=== PATIENT | female | born 1935 | race Caucasian/White ===

== ENCOUNTER 2020-02-13 11:55 | Emergency (ER) | payer OTHER, MEDICARE ==
--- OUTSIDE RECORDS SUMMARY | 2020-02-13 11:58 | XMS REPORT | Continuity of Care Document ---
:1935 Author Organization [facility] t Address [address] [place] [address] Care Team Providers Name Role Phone Unavailable Unavailable Unavailable Problems Condition Condition Condition Status Onset Resolution Last Treating Co mments Source Name Details Category Date Date Treatment Clinician Date Arthritis Arthritis Diagnosis Active [facility], [facility], [facility] Pain, Pain, Diagnosis Active [facility] joint, [facility], left knee, left [facility] Sprain of Sprain of Diagnosis Active [facility] other other [facility] - ligament ligament [facility] of left of left l knee, knee, Outpati initial initial ent encounter encounter Clin ics Allergies, Adverse Reactions, Alerts This patient has no known allergies or adverse reactions. Medications Ordered Filled Start Stop Current Ordering Indication Dosage Frequency Signature Comments Components Source Medication Medication Date Date Medication? Clinician (SIG) Name Name Cyclobenzap Cyclobenzap Yes [facility] not [facility] rine HCl rine HCl [facility] defined [facility] Pepcid Pepcid Yes [facility] not [facility] Lumigan Lumigan Yes [place] not [facility] Levothyroxi Levothyroxi Yes [facility] not [facility] ne Sodium ne Sodium [place] defined [facility] Azithromyci Azithromyci Yes [facility] not [facility] n n [place] defined [facility] MethylPREDN MethylPREDN Yes [facility] not [facility] ISolone ISolone [place] defined [facility] Omeprazole Omeprazole Yes [facility] not [facility] Losartan Losartan Yes [facility] not [facility] Potassium-H Potassium-H [place] defined [facility] - [facility] Procedures This patient has no known procedures. Encounters Start End Encounter Admission Attending Care Care Encounter Source Date/Time Date/Time Type Type Clinicians Facility Department ID 2019-06-14 2019-06-14 Outpatient Doug Aaron [id number] [facility] 09[facility] a Clinic of Clinic [facility] ent [facility] Results This patient has no known results.
[2020-02-13 12:51] LABS: Absolute Lymphocytes (CBC) 3.2 K/uL (0.7-4.9); Basophils % 0.5 % (0-1.3); Hematocrit 35.9 % (36.0-45.0); Lymphocytes % 31.9 % (15.3-44.8); MPV 8.5 fL (7.6-11.3); RBC Red Blood Cell Count 4.17 M/uL (3.86-4.86)
[2020-02-13 12:54] LABS: Protime INR 0.97
[2020-02-13 13:16] LABS: ALT/SGPT 23 U/L (12-78); AST/SGOT 15 U/L (15-37); Albumin 3.6 g/dL (3.4-5.0); Alkaline Phosphatase 78 U/L (45-117); BUN Blood Urea Nitrogen 13 mg/dL (7-18); Bicarbonate 27 mmol/L (21-32); Bilirubin Direct < 0.1 mg/dL (0-0.2); Bilirubin Total 0.2 mg/dL (0.2-1.0); Glucose Level 93 mg/dL (74-106); Lipase 55 U/L (73-393); Magnesium 2.4 mg/dL (1.8-2.4); NT PRO-BNP 114 pg/mL (<450); Potassium 4.1 mmol/L (3.5-5.1); Protein, Total 6.9 g/dL (6.4-8.2); Sodium Level 138 mmol/L (136-145)
--- NOTE | 2020-02-13 13:42 | RAD REPORT ---
EXAM DESCRIPTION: Vani Single View02/13/2020 1:20 pm CLINICAL HISTORY: Shortness of breath COMPARISON: 2017 FINDINGS: The lungs appear clear of acute infiltrate. The heart is normal size IMPRESSION: No acute abnormalities displayed
[2020-02-13 13:45] LABS: Urine Blood NEGATIVE (NEG); Urine Glucose NEGATIVE (NEG); Urine Protein NEGATIVE (NEG); Urine Specific Gravity 1.015 (1.005-1.030); Urine pH 8.5 (5.0-7.0)
[2020-02-13 13:46] LABS: Urine Bacteria <20 /HPF (<20); Urine RBC <5 /HPF (NONE SEEN)
[2020-02-13 13:48] LABS: Urine Culture Reflex Order NOT NEEDED
[2020-02-13 14:09] LABS: Thyroid Stimulating Hormone 1.01 uIU/mL (0.360-3.740)
--- NOTE | 2020-02-13 16:19 | RAD REPORT ---
EXAM DESCRIPTION: CT - Abdomen Pelvis W Contrast - 02/13/2020 3:51 pm CLINICAL HISTORY: Abdominal pain. COMPARISON: None. TECHNIQUE: Computed axial tomography of the abdomen and pelvis was obtained. 100 cc Isovue-300 is ad ministered intravenously. Oral contrast was given. All CT scans are performed using dose optimization technique as appropriate and may include automated exposure control or mA/KV adjustment according to patient size. FINDINGS: A 4 centimeter anorectal exophytic mass extends posterior and to the left. No enlarged lym ph nodes visualized. Mild fluid within the presacral space. Diverticulosis without diverticulitis. The liver, spleen, pancreas, adrenals and kidneys appear unremarkable. The appendix is normal caliber. 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
--- NOTE | 2020-02-13 16:25 | EDPHYS ---
Physician Documentation [facility] Name: Tiara Gooden Age: 84 yrs Sex: Female : 1935 Arrival Date: 02/13/2020 Time: 12:00 Bed 8 Private MD: ED Physician Mailk Corona HPI: 02/12 13:25 This 84 yrs old Female presents to ER via Wheelchair with complaints of jr8 General Weakness. 13:25 Patient stated that she has been extremely weak this past week. Denies n/v/d or fevers. jr8 Stated that she has not felt like this in a long time. Currently being worked up for GI problems and was schedule to have CT today but was so weak that she could not make it . Severity of symptoms: At their worst the symptoms were moderate. The patient has not experienced similar symptoms in the past. The patient has not recently seen a physician. Historical: - Allergies: 12:22 Codeine; ll1 - PMHx: 12:22 Hypertension; Hypothyroidism; macular degeneration; ll1 - PSHx: 12:22 Thyroidectomy; ll1 - Immunization history:: Flu vaccine is up to date. - Social history:: Smoking status: Patient denies any tobacco usage or history of. Patient/guardian denies using alcohol, street drugs. ROS: 13:25 Eyes: Negative for injury, pain, redness, and discharge, ENT: Negative for injury, jr8 pain, and discharge, Neck: Negative for injury, pain, and swelling, Cardiovascular: Negative for chest pain, palpitations, and edema, Respiratory: Negative for shortness of breath, cough, wheezing, and pleuritic chest pain, Back: Negative for injury and pain, MS/Extremity: Negative for injury and deformity, Skin: Negative for injury, rash, and discoloration, Neuro: Negative for headache, weakness, numbness, tingling, and seizure. 13:25 Constitutional: Positive for fatigue, malaise. 13:25 Abdomen/GI: Positive for abdominal pain, abdominal distension. Exam: 13:25 Eyes: Pupils equal round and reactive to light, extra-ocular motions intact. Lids and jr8 lashes normal. Conjunctiva and sclera are non-icteric and not injected. Cornea within normal limits. Periorbital areas with no swelling, redness, or edema. ENT: Nares patent. No nasal discharge, no septal abnormalities noted. Tympanic membranes are normal and external auditory canals are clear. Oropharynx with no redness, swelling, or masses, exudates, or evidence of obstruction, uvula midline. Mucous membranes moist. Neck: Trachea midline, no thyromegaly or masses palpated, and no cervical lymphadenopathy. Supple, full range of motion without nuchal rigidity, or vertebral point tenderness. No Meningismus. Cardiovascular: Regular rate and rhythm with a normal S1 and S2. No gallops, murmurs, or rubs. Normal PMI, no JVD. No pulse deficits. Respiratory: Lungs have equal breath sounds bilaterally, clear to auscultation and percussion. No rales, rhonchi or wheezes noted. No increased work of breathing, no retractions or nasal flaring. Abdomen/GI: Soft, non-tender, with normal bowel sounds. No distension or tympany. No guarding or rebound. No evidence of tenderness throughout. Back: No spinal tenderness. No costovertebral tenderness. Full range of motion. Skin: Warm, dry with normal turgor. Normal color with no rashes, no lesions, and no evidence of cellulitis. MS/ Extremity: Pulses equal, no cyanosis. Neurovascular intact. Full, normal range of motion. Neuro: Awake and alert, GCS 15, oriented to person, place, time, and situation. Cranial nerves II-XII grossly intact. Motor strength 5/5 in all extremities. Sensory grossly intact. Cerebellar exam normal Vital Signs: 12:19 BP 168 / 95; Pulse 80; Resp 18; Temp 98.2; Pulse Ox 100% ; Pain 0/10; ll1 13:30 BP 188 / 83; Pulse 72; Resp 15; Pulse Ox 99% on R/A; hb 14:30 BP 186 / 80; Pulse 70; Resp 17; Pulse Ox 99% on R/A; hb 15:30 BP 178 / 78; Pulse 68; Resp 16; Pulse Ox 99% on R/A; hb 16:55 BP 174 / 76; Pulse 71; Resp 17; Pulse Ox 99% on R/A; hb MDM: 12:34 Patient medically screened. jr8 16:20 Data reviewed: vital signs, nurses notes, lab test result(s), radiologic studies, CT jr8 scan. Data interpreted: Pulse oximetry: on room air is 99 %. Interpretation: normal. Counseling: I had a detailed discussion with the patient and/or guardian regarding: the historical points, exam findings, and any diagnostic results supporting the discharge/admit diagnosis, lab results, radiology results, the need for outpatient follow up, a cad technician, to return to the emergency department if symptoms worsen or persist or if there are any questions or concerns that arise at home. ED course: Patient already set up to see Dr. Ashford for f/u. Will continue that appointment for new anorectal mass that was found on CT . 02/12 12:35 Order name: Basic Metabolic Panel; Complete Time: 13:24 02/12 12:35 Order name: CBC with Diff; Complete Time: 12:55 02/12 12:35 Order name: LFT's; Complete Time: 13:24 02/12 12:35 Order name: Magnesium; Complete Time: 13:24 02/12 12:35 Order name: NT PRO-BNP; Complete Time: 13:24 02/12 12:35 Order name: PT-INR; Complete Time: 12:55 02/12 12:35 Order name: XRAY Chest (1 view); Complete Time: 14:00 02/12 12:35 Order name: EKG; Complete Time: 12:36 02/12 12:35 Order name: Lipase; Complete Time: 13:24 02/12 12:35 Order name: Urine Microscopic Only; Complete Time: 14:00 02/12 12:55 Order name: TSH; Complete Time: 14:02/12 12:55 Order name: T4 Free; Complete Time: 14:02/12 13:02 Order name: CT Abd/Pelvis - PO and IV Contrast; Complete Time: 16:20 02/12 13:41 Order name: Urine Dipstick--Ancillary (enter results); Complete Time: 14:00 02/12 12:35 Order name: Cardiac monitoring; Complete Time: 12:53 02/12 12:35 Order name: EKG - Nurse/Tech; Complete Time: 12:53 02/12 12:35 Order name: IV Saline Lock; Complete Time: 12:53 02/12 12:35 Order name: Labs collected and sent; Complete Time: 12:53 8 02/12 12:35 Order name: O2 Per Protocol; Complete Time: 12:53 02/12 12:35 Order name: O2 Sat Monitoring; Complete Time: 12:53 02/12 12:35 Order name: Urine Dipstick-Ancillary (obtain specimen); Complete Time: 13:17 jr8 Administered Medications: No medications were administered Disposition: 18:31 Co-signature as Attending Physician, Malik Corona MD. rn Disposition: 02/13/20 16:24 Discharged to Home. 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 - Condition is Stable. - Discharge Instructions: Colon Mass, Adult. - Medication Reconciliation Form, Thank You Letter, Antibiotic Education, Prescription Opioid Use form. - Follow up: Hesham Ashford MD; When: 1 - 2 days; Reason: Recheck today's complaints, Continuance of care, Re-evaluation by your physician. - Problem is new. - Symptoms are unchanged. Signatures: Dispatcher [employer] EDGA Malik Corona MD MD rn Smirch, Shelby RN RN Osman Crook, WINDY PA jr8 Dayron Bowman RN RN ll1 Corrections: (The following items were deleted from the chart) 17:04 16:24 02/13/2020 16:24 Discharged to Home. Impression: Other specified diseases of anus ss and rectum - Suspected Neoplasm . Condition is Stable. Forms are Medication Reconciliation Form, Thank You Letter, Antibiotic Education, Prescription Opioid Use. Follow up: Hesham Ashford; When: 1 - 2 days; Reason: Recheck today's complaints, Continuance of care, Re-evaluation by your physician. Problem is new. Symptoms are unchanged. jr8
--- NOTE | 2020-02-13 16:25 | ER ---
Nurse's Notes [facility] Name: Tiara Gooden Age: 84 yrs Sex: Female : 1935 Arrival Date: 02/13/2020 Time: 12:00 Bed 8 Private MD: Diagnosis: Other specified diseases of anus and rectum-Suspected Neoplasm Presentation: 02/12 12:19 Chief complaint: Patient states: Generalized weakness and near syncope feeling today. + ll1 nausea. States she was scheduled for a CT scan of abdomen at 2pm today, but just doesn't feel good enough to even drink her barium drink. No fever or cough. States she has been having abdominal upset for a couple months now. Coronavirus screen: Client denies travel out of the [place] in the last 14 days. At this time, the client does not indicate any symptoms associated with coronavirus-19. Ebola Screen: Patient denies travel to an Ebola-affected area in the 21 days before illness onset. No acute neurological deficit is noted. Initial Sepsis Screen: Does the patient meet any 2 criteria? No. Patient's initial sepsis screen is negative. Risk Assessment: Do you want to hurt yourself or someone else? Patient reports no desire to harm self or others. Onset of symptoms was February 13, 2020. 12:19 Method Of Arrival: Wheelchair ll1 12:19 Acuity: ANNA 3 ll1 12:30 Initial Sepsis Screen: Does the patient have a suspected source of infection? No. hb Patient's initial sepsis screen is negative. Stroke Activation: Symtpom onset >3 hours and < 6 hours Physician: Stroke Attending; Name: ; Notified At: ; Arrived At: Physician: Chief Stroke Resident; Name: ; Notified At: ; Arrived At: Physician: Stroke Resident; Name: ; Notified At: ; Arrived At: Physician: ED Attending; Name: ; Notified At: ; Arrived At: Physician: ED Resident; Name: ; Notified At: ; Arrived At: Historical: - Allergies: 12:22 Codeine; ll1 - PMHx: 12:22 Hypertension; Hypothyroidism; macular degeneration; ll1 - PSHx: 12:22 Thyroidectomy; ll1 - Immunization history:: Flu vaccine is up to date. - Social history:: Smoking status: Patient denies any tobacco usage or history of. Patient/guardian denies using alcohol, street drugs. Screenin:54 Abuse screen: Denies threats or abuse. Denies injuries from another. Nutritional hb screening: No deficits noted. Tuberculosis screening: No symptoms or risk factors identified. Fall Risk None identified. Assessment: 12:32 General: Appears in no apparent distress. Behavior is calm, cooperative. Pain: Denies hb pain. Neuro: Level of Consciousness is awake, alert, obeys commands, Oriented to person, place, time, situation. Cardiovascular: Capillary refill < 3 seconds Patient's skin is warm and dry. Respiratory: Respiratory effort is even, unlabored, Respiratory pattern is regular, symmetrical. GI: No signs and/or symptoms were reported involving the gastrointestinal system. : No signs and/or symptoms were reported regarding the genitourinary system. EENT: No signs and/or symptoms were reported regarding the EENT system. Derm: Skin is pink, warm \T\ dry. Musculoskeletal: Reports GENERALIZED WEAKNESS. 13:30 Reassessment: Patient appears in no apparent distress at this time. Patient and/or hb family updated on plan of care and expected duration. Pain level reassessed. Patient is alert, oriented x 3, equal unlabored respirations, skin warm/dry/pink. 14:30 Reassessment: Patient appears in no apparent distress at this time. Patient and/or hb family updated on plan of care and expected duration. Pain level reassessed. Patient is alert, oriented x 3, equal unlabored respirations, skin warm/dry/pink. 15:30 Reassessment: Patient appears in no apparent distress at this time. No changes from previously documented assessment. Patient and/or family updated on plan of care and expected duration. Pain level reassessed. Patient is alert, oriented x 3, equal unlabored respirations, skin warm/dry/pink. 16:22 Reassessment: Pt ambulated to bathroom with steady gait. hb Vital Signs: 12:19 BP 168 / 95; Pulse 80; Resp 18; Temp 98.2; Pulse Ox 100% ; Pain 0/10; ll1 13:30 BP 188 / 83; Pulse 72; Resp 15; Pulse Ox 99% on R/A; hb 14:30 BP 186 / 80; Pulse 70; Resp 17; Pulse Ox 99% on R/A; hb 15:30 BP 178 / 78; Pulse 68; Resp 16; Pulse Ox 99% on R/A; hb 16:55 BP 174 / 76; Pulse 71; Resp 17; Pulse Ox 99% on R/A; hb ED Course: 12:00 Patient arrived in ED. mr 12:21 Osman Reddy PA is PHCP. jr8 12:21 Malik Corona MD is Attending Physician. jr8 12:21 Triage completed. ll1 12:22 Arm band placed on Patient placed in an exam room, on a stretcher. ll1 12:32 Inserted saline lock: 20 gauge in right antecubital area, using aseptic technique. hb Blood collected. 12:35 Patient has correct armband on for positive identification. Bed in low position. Call hb light in reach. 12:36 Yessy Andre, RN is Primary Nurse. hb 13:21 XRAY Chest (1 view) In Process Unspecified. EDMS 15:51 CT Abd/Pelvis - PO and IV Contrast In Process Unspecified. EDMS 16:21 Hesham Ashford MD is Referral Physician. jr8 17:04 No provider procedures requiring assistance completed. IV discontinued, intact, ss bleeding controlled, No redness/swelling at site. Administered Medications: No medications were administered Outcome: 16:24 Discharge ordered by . jr8 17:04 Discharged to home ambulatory. ss 17:04 Condition: stable 17:04 Discharge instructions given to patient, Instructed on discharge instructions, follow up and referral plans. medication usage, Demonstrated understanding of instructions, follow-up care, medications. 17:04 Patient left the ED. ss Signatures: Dispatcher [employer] EDTN ObrienKaro mr Teresita Yang RN RN Osman Reddy PA PA jr8 Yessy Andre, RN AMY Dayron Bowman RN RN ll1
[2020-02-13 17:28] VITALS: TEMP 98.2
[2020-02-13 17:29] VITALS: O2SAT 99
[2020-02-13 17:33] VITALS: BP 174/76
== END 2020-02-13 17:04 | disposition home or self-care (01) ==
LOC: ER 11:55
DX: K62.89 Other specified diseases of anus and rectum (principal); I10 Essential (primary) hypertension; Z88.5 Allergy status to narcotic agent
CPT/HCPCS: 85025; 80048; 36415; 83735; 85610; 80076; 84443; 84439; 83690; 83880; 74177; 71045; 99284; Q9967; 81003; 81015

== ENCOUNTER 2020-02-14 06:00 | Emergency (ER) | payer OTHER, MEDICARE ==
--- OUTSIDE RECORDS SUMMARY | 2020-02-14 06:02 | XMS REPORT | Continuity of Care Document ---
:1935 Author Organization [facility] t Address [address] [place] [address] Care Team Providers Name Role Phone Unavailable [...] l Outpati ent Clinics Lumigan Lumigan Yes [facility] not [facility] defined [...] Potassium-H [place] defined [facility] ent [facility] Procedures This patient has no known procedures. Encounters Start End Encounter Admission Attending Care Care Encounter Source Date/Time Date/Time Type Type Clinicians Facility Department ID 2019-06-14 2019-06-14 Outpatient Doug Aaron [id number] [facility] 09[facility] t [facility] a Clinic of Clinic [facility] ent [facility] Results This patient has no known results.
[2020-02-14] MEDS ORDERED: LIDOCAINE 1% W/EPI 1:100,000 MDV 50 ML VIAL ONE (06:23)
--- NOTE | 2020-02-14 08:01 | EDPHYS ---
Physician Documentation [facility] Name: Tiara Gooden Age: 84 yrs Sex: Female : 1935 Arrival Date: 02/14/2020 Time: 06:01 Bed 6 Private MD: ED Physician Zeb Acosta HPI: 02/13 06:08 This 84 yrs old Female presents to ER via EMS with complaints of Fall Injury. kb 06:08 Details of fall: The patient fell from an upright position, while walking. Onset: The kb symptoms/episode began/occurred just prior to arrival. Associated injuries: The patient sustained injury to the head, laceration, 10 cm(s), of the forehead and top of head. Severity of symptoms: At their worst the symptoms were moderate, in the emergency department the symptoms are unchanged. The patient has not experienced similar symptoms in the past. The patient has not recently seen a physician. Pt reports she tripped and fell hitting her head on the doorframe causing laceration. Reports she landed on left knee but it feels fine. Full ROM to knee, no signs of trauma, including ecchymosis, erythema, swelling, hematoma. Pt denies any other injuries. Full ROM of all extremities. Denies LOC. . Historical: - Allergies: 06:09 Codeine; bb - Home Meds: 06:16 levothyroxine oral [Active]; losartan oral oral [Active]; Lumigan ophthalmic ophthalmic bb [Active]; vitamins [Active]; - PMHx: 06:09 Hypertension; Hypothyroidism; macular degeneration; bb - PSHx: 06:09 Thyroidectomy; bb - Immunization history: Last tetanus immunization: unknown. - Social history:: Smoking status: Patient denies any tobacco usage or history of. Patient uses alcohol, but reports only rare drinking. Patient/guardian denies using street drugs. ROS: 06:07 Constitutional: Negative for fever, chills, and weight loss, Cardiovascular: Negative kb for chest pain, palpitations, and edema, Respiratory: Negative for shortness of breath, cough, wheezing, and pleuritic chest pain, Abdomen/GI: Negative for abdominal pain, nausea, vomiting, diarrhea, and constipation, Back: Negative for injury and pain, MS/Extremity: Negative for injury and deformity, Neuro: Negative for headache, weakness, numbness, tingling, and seizure. 06:07 Skin: Positive for laceration(s), of the top of head and forehead. Exam: 06:07 Constitutional: This is a well developed, well nourished patient who is awake, alert, kb and in no acute distress. Chest/axilla: Normal chest wall appearance and motion. Nontender with no deformity. No lesions are appreciated. Cardiovascular: Regular rate and rhythm with a normal S1 and S2. No gallops, murmurs, or rubs. Normal PMI, no JVD. No pulse deficits. Respiratory: Lungs have equal breath sounds bilaterally, clear to auscultation and percussion. No rales, rhonchi or wheezes noted. No increased work of breathing, no retractions or nasal flaring. Abdomen/GI: Soft, non-tender, with normal bowel sounds. No distension or tympany. No guarding or rebound. No evidence of tenderness throughout. MS/ Extremity: Pulses equal, no cyanosis. Neurovascular intact. Full, normal range of motion. Neuro: Awake and alert, GCS 15, oriented to person, place, time, and situation. Cranial nerves II-XII grossly intact. Motor strength 5/5 in all extremities. Sensory grossly intact. Cerebellar exam normal. Normal gait. 06:07 Head/face: Noted is no obvious of injury or deformity except a laceration(s), that is superficial, 10 cm(s), of the forehead and top of head. Vital Signs: 06:03 BP 169 / 83; Pulse 105; Resp 18 S; Temp 98.3(O); Pulse Ox 100% on R/A; Weight 73.48 kg bb (R); Height 5 ft. 5 in. (165.10 cm) (R); 07:00 BP 155 / 77; Pulse 99; Resp 18; Pulse Ox 99% ; sv 08:00 BP 144 / 78; Pulse 92; Resp 16; Pulse Ox 99% ; sv 06:03 Body Mass Index 26.96 (73.48 kg, 165.10 cm) bb Dallas Coma Score: 06:03 Eye Response: spontaneous(4). Verbal Response: oriented(5). Motor Response: obeys bb commands(6). Total: 15. Trauma Score (Adult): 06:03 Eye Response: spontaneous(1); Verbal Response: oriented(1); Motor Response: obeys bb commands(2); Systolic BP: > 89 mm Hg(4); Respiratory Rate: 10 to 29 per min(4); Tiffin Score: 15; Trauma Score: 12 07:00 Eye Response: spontaneous(1); Verbal Response: oriented(1); Motor Response: obeys sv commands(2); Systolic BP: > 89 mm Hg(4); Respiratory Rate: 10 to 29 per min(4); Tiffin Score: 15; Trauma Score: 12 08:00 Eye Response: spontaneous(1); Verbal Response: oriented(1); Motor Response: obeys sv commands(2); Systolic BP: > 89 mm Hg(4); Respiratory Rate: 10 to 29 per min(4); Dallas Score: 15; Trauma Score: 12 Laceration: 08:01 Wound Repair of 12cm ( 4.7in ) subcutaneous laceration to forehead and top of head. kb Irregularly shaped.. Hemostasis noted.. Distal neuro/vascular/tendon intact. Anesthesia: Local anesthetic administered with 6 mls of 1% lidocaine w/ Epi. Wound prep: Extensive cleansing with betadine with hibiclenz by nurse by me, Wound irrigation with saline by nurse by me. Skin closed with 13 5-0 fast absorbing gut using simple sutures and sterile technique. Skin closed with 10 1-0 [place] using staple gun. Patient tolerated well. MDM: 06:04 Patient medically screened. kb 06:07 Data reviewed: vital signs, nurses notes. Data interpreted: Pulse oximetry: on room air kb is 100 %. Interpretation: normal. 08:00 Counseling: I had a detailed discussion with the patient and/or guardian regarding: the kb historical points, exam findings, and any diagnostic results supporting the discharge/admit diagnosis, radiology results, the need for outpatient follow up, a family practitioner, to return to the emergency department if symptoms worsen or persist or if there are any questions or concerns that arise at home. 02/13 06:07 Order name: CT Head C Spine kb 02/13 06:07 Order name: Dressing - Wound; Complete Time: 07:04 kb 02/13 06:07 Order name: Gloves, Sterile; Complete Time: 07:04 kb 02/13 06:07 Order name: Setup Suture Tray; Complete Time: 06:19 kb Administered Medications: 06:50 Drug: Lidocaine-Epinephrine -1%: (1:100,000) 1 vials {Note: given by anita WINTER.} rr5 Volume: 20 ml; Route: Infiltration; 07:27 Follow up: Response: No adverse reaction; Pain is decreased em Disposition: 12:42 Co-signature as Attending Physician, Zeb Acosta MD I agree with the assessment and tw4 plan of care. Disposition: 02/14/20 08:01 Discharged to Home. Impression: Fall on same level from slipping, tripping and stumbling, Laceration without foreign body of scalp. - Condition is Stable. - Discharge Instructions: Head Injury, Adult, [id number], Laceration Care, Pediatric, [id number]. - Medication Reconciliation Form, Thank You Letter, Antibiotic Education, Prescription Opioid Use form. - Follow up: Emergency Department; When: As needed; Reason: Worsening of condition. Follow up: Private Physician; When: 2 - 3 days; Reason: Recheck today's complaints, Continuance of care, Re-evaluation by your physician. - Notes: Sutures will dissolve. Have rudolph removed in 7-10 days Keep clean and dry Signatures: Dispatcher [employer] EDMS Anita Birmingham, LIDAR TECHNICIAN-C LIDAR TECHNICIAN-CkDiane Lynn RN RN Nicolette Hawkins RN RN Zeb Suazo MD MD tw4 Karri Romero RN RN rr5 Nahun Inman RN em Corrections: (The following items were deleted from the chart) 08:25 08:01 02/14/2020 08:01 Discharged to Home. Impression: Fall on same level from sv slipping, tripping and stumbling; Laceration without foreign body of scalp. Condition is Stable. Forms are Medication Reconciliation Form, Thank You Letter, Antibiotic Education, Prescription Opioid Use. Follow up: Emergency Department; When: As needed; Reason: Worsening of condition. Follow up: Private Physician; When: 2 - 3 days; Reason: Recheck today's complaints, Continuance of care, Re-evaluation by your physician. kb
--- NOTE | 2020-02-14 08:01 | ER ---
Nurse's Notes [facility] Name: Tiara Gooden Age: 84 yrs Sex: Female : 1935 Arrival Date: 02/14/2020 Time: 06:01 Bed 6 Private MD: Diagnosis: Fall on same level from slipping, tripping and stumbling;Laceration without foreign body of scalp Presentation: 02/13 06:03 Chief complaint: EMS states: they were toned out for report of pt with fall injury pt bb slipped and fell forward hitting her head denies LOC and does not take blood thinners. Care prior to arrival: IV initiated. 20 GA, in the left antecubital area. Mechanism of Injury: Fall from standing position. Trauma event details: Injury occurred in the [facility], Injury occurred: at home. Injury occurred: February 14, 2020. 06:03 Acuity: ANNA 3 bb 06:03 Method Of Arrival: EMS: [facility] bb 06:08 Coronavirus screen: At this time, the client does not indicate any symptoms associated bb with coronavirus-19. Ebola Screen: No symptoms or risks identified at this time. Initial Sepsis Screen: Does the patient meet any 2 criteria? No. Patient's initial sepsis screen is negative. Does the patient have a suspected source of infection? No. Patient's initial sepsis screen is negative. Risk Assessment: Do you want to hurt yourself or someone else? Patient reports no desire to harm self or others. Onset of symptoms was February 14, 2020. Trauma Activation: Alert Physician: ED Physician; Name: Karla; Notified At: 05:57; Arrived At: 05:57 Physician: General Surgeon; Name: ; Notified At: 05:57; Arrived At: Physician: Radiology; Name: Ulises Early; Notified At: 05:57; Arrived At: 05:58 Physician: Respiratory; Name: ; Notified At: 05:57; Arrived At: Physician: Lab; Name: ; Notified At: 05:57; Arrived At: Historical: - Allergies: 06:09 Codeine; bb - Home Meds: 06:16 levothyroxine oral [Active]; losartan oral oral [Active]; Lumigan ophthalmic ophthalmic bb [Active]; vitamins [Active]; - PMHx: 06:09 Hypertension; Hypothyroidism; macular degeneration; bb - PSHx: 06:09 Thyroidectomy; bb - Immunization history: Last tetanus immunization: unknown. - Social history:: Smoking status: Patient denies any tobacco usage or history of. Patient uses alcohol, but reports only rare drinking. Patient/guardian denies using street drugs. Screenin:03 Abuse screen: Denies threats or abuse. Tuberculosis screening: No symptoms or risk bb factors identified. 06:09 Nutritional screening: No deficits noted. Fall Risk Fall in past 12 months (25 points). bb Secondary diagnosis (15 points) impaired mobility, IV access (20 points). Ambulatory Aid- None/Bed Rest/Nurse Assist (0 pts). Mental Status- Overestimates/Forgets Limitations (15 pts.). Total Pelletier Fall Scale indicates High Risk Score (45 or more points). Fall prevention measures have been instituted. Side Rails Up X 2 As available patient and family educated on Fall Prevention Program and Strategies. Primary Survey: 06:03 NO uncontrolled hemorrhage observed. A: The patient is alert. Airway: patent. bb Breathing/Chest: Respiratory pattern: regular, Respiratory effort: spontaneous, unlabored. Circulation: Heart tones present. Disability Alert. 06:16 Exposure/Environment: All clothing and personal items were removed. There is no rr5 evidence of uncontrolled external bleeding. Obvious injury(ies) are noted at this time: lacerated wound forehead area A warming method has been applied: A warm blanket has been provided to the patient. 07:05 Reassessment Airway Airway Patent Oral cavity Clear +Gag reflex Trachea Midline rr5 Breathing/Chest Respiratory pattern Regular Respiratory effort Spontaneous Unlabored Circulation Heart tones Present Pulses Palpable Disability Alert. 07:15 Reassessment Airway Airway Patent Oxygen No O2 Oral cavity Clear Trachea Midline sv Breathing/Chest Respiratory pattern Regular Respiratory effort Spontaneous Unlabored Chest inspection Symmetrical Circulation Heart tones Present Pulses Palpable Color [place] Temperature Warm Dry Disability Alert. Secondary Survey: 06:03 HEENT: Head Other laceration to scalp 10 cm. bb Assessment: 06:11 General: Appears uncomfortable, Behavior is calm, cooperative. Pain: Complains of pain bb in forehead and top of head. Neuro: Level of Consciousness is awake, alert, obeys commands, Oriented to person, place, time, situation. Cardiovascular: Capillary refill < 3 seconds Patient's skin is warm and dry. Respiratory: Airway is patent Respiratory effort is even, unlabored, Respiratory pattern is regular. GI: Reports nausea. Derm: Wound noted forehead and top of head Wound is laceration 10 cm. Musculoskeletal: Circulation, motion, and sensation intact. Injury Description: Laceration sustained to forehead and top of head is 7.6 to 20 cm long, was sustained 30-60 minutes ago. 06:16 Reassessment: pt to CT scan via stretcher with geotechnical intern. bb 06:26 Reassessment: Patient is alert, oriented x 3, equal unlabored respirations, skin rr5 warm/dry/pink. back from CT scan. 07:20 Reassessment: Anita WINTER at the bedside suturing the pt. sv 08:25 Reassessment: Patient appears in no apparent distress at this time. Patient and/or sv family updated on plan of care and expected duration. Pain level reassessed. Patient is alert, oriented x 3, equal unlabored respirations, skin warm/dry/pink. Patient states feeling better. Patient states symptoms have improved. Vital Signs: 06:03 BP 169 / 83; Pulse 105; Resp 18 S; Temp 98.3(O); Pulse Ox 100% on R/A; Weight 73.48 kg bb (R); Height 5 ft. 5 in. (165.10 cm) (R); 07:00 BP 155 / 77; Pulse 99; Resp 18; Pulse Ox 99% ; sv 08:00 BP 144 / 78; Pulse 92; Resp 16; Pulse Ox 99% ; sv 06:03 Body Mass Index 26.96 (73.48 kg, 165.10 cm) bb Dallas Coma Score: 06:03 Eye Response: spontaneous(4). Verbal Response: oriented(5). Motor Response: obeys bb commands(6). Total: 15. Trauma Score (Adult): 06:03 Eye Response: spontaneous(1); Verbal Response: oriented(1); Motor Response: obeys bb commands(2); Systolic BP: > 89 mm Hg(4); Respiratory Rate: 10 to 29 per min(4); [place] Score: 15; Trauma Score: 12 07:00 Eye Response: spontaneous(1); Verbal Response: oriented(1); Motor Response: obeys sv commands(2); Systolic BP: > 89 mm Hg(4); Respiratory Rate: 10 to 29 per min(4); Dallas Score: 15; Trauma Score: 12 08:00 Eye Response: spontaneous(1); Verbal Response: oriented(1); Motor Response: obeys sv commands(2); Systolic BP: > 89 mm Hg(4); Respiratory Rate: 10 to 29 per min(4); Dallas Score: 15; Trauma Score: 12 ED Course: 06:01 Patient arrived in ED. cl3 06:03 Patient has correct armband on for positive identification. Call light in reach. Side bb rails up X2. 06:03 Patient maintains SpO2 saturation greater than 95% on room air. bb 06:04 Anita Birmingham FNP-C [facility] kb 06:04 Zeb Acosta MD is Attending Physician. kb 06:05 Triage completed. bb 06:09 Arm band placed on Patient placed in an exam room, on a stretcher, on pulse oximetry. bb 06:09 Maintain EMS IV. Dressing intact. Site clean \T\ dry. Gauge \T\ site: 20 g L AC. bb 06:10 Karri Romero RN is Primary Nurse. rr5 06:10 Thermoregulation: warm blanket given to patient. bb 06:31 CT Head C Spine In Process Unspecified. EDMS 06:55 Wound care: to laceration located on top of head and forehead was cleaned with rr5 Hibiclens, soaked in Betadine solution, irrigated with normal saline, Patient tolerated well. 07:20 Assist provider with laceration repair on forehead and top of head that was between 7.6 sv to 12.5 cm using sutures and rudolph. Set up tray. Performed by Anita GUNN. 07:33 Primary Nurse role handed off by Karri Romero RN sv 07:33 Diane Baptiste RN is Primary Nurse. sv 08:15 IV discontinued, intact, bleeding controlled, No redness/swelling at site. Pressure sv dressing applied. Dressings: [place] X 1; forehead and top of head 4X4s X 1; forehead and top of head. Administered Medications: 06:50 Drug: Lidocaine-Epinephrine -1%: (1:100,000) 1 vials {Note: given by anita WINTER.} rr5 Volume: 20 ml; Route: Infiltration; 07:27 Follow up: Response: No adverse reaction; Pain is decreased em Intake: 06:03 PO: 0ml; Total: 0ml. bb 07:00 PO: 0ml; Total: 0ml. sv 08:00 PO: 0ml; Total: 0ml. sv 08:00 to the bathroom via wheelchair sv Output: 07:00 Urine: 0ml; Total: 0ml. sv 08:00 Other: 1; Total: 0ml. sv 08:00 to the bathroom via wheelchair sv Outcome: 08:01 Discharge ordered by . pao 08:25 Patient left the ED. sv 08:25 Discharged to home via wheelchair, with family. sv 08:25 Condition: stable 08:25 Condition: improved 08:25 Discharge instructions given to patient, family, Instructed on discharge instructions, follow up and referral plans. wound care, head injury precaution Demonstrated understanding of instructions, follow-up care, wound care. 08:25 Patient's length of stay in the Emergency Department was greater than 2 hours. needing sv laceration repairPatient's length of stay extended due to Signatures: Dispatcher [employer] Anita Sotelo, Diane Huitron, RN RN Nahun Wright, Nicolette Pulliam RN, RN RN Karri Zapata, RN RN rr5 Sandrine Bowman cl3 Corrections: (The following items were deleted from the chart) 16:08 07:20 Assist provider with laceration repair on forehead and top of head that was sv between 7.6 to 12.5 cm using sutures. Set up tray. Performed by Anita tapia
[2020-02-14 08:32] VITALS: BP 169/83; TEMP 98.3; O2SAT 100
--- NOTE | 2020-02-14 12:20 | RAD REPORT ---
EXAM DESCRIPTION: Head C Spine Mpr Wo Con CLINICAL HISTORY: PAIN COMPARISON: None. TECHNIQUE: CT Head and Cervical spine WO contrast on 02/14/2020 6:07 AM CDT This exam was performed according to our departmental dose-optimization program, which includes autom ated exposure control, adjustment of the mA and/or kV according to patient size and/or use of iterati ve reconstruction technique. FINDINGS: Brain: There is a large midline scalp laceration. Osorio-white differentiation is preserved. There is no hydrocephalus. There is mild diffuse cerebral atrophy. There is a small left frontal sca lp contusion. The calvarium is intact. Orbits and globes are unremarkable. The paranasal sinuses are clear. Mastoid air cells are clear. Cervical Spine: There is no acute fracture. There is grade 1 anterolisthesis of C2 on C3 and C3 on C4 and C4 on C5. There is mild diffuse facet arthritis. There is moderate narrowing of the C5-6 and C6-7 discs. There is moderate narrowing at T1-2. Vertebra l body heights are preserved. Soft tissues are unremarkable. IMPRESSION: Left frontal and midline frontal scalp injury with no fracture or intracranial hemorrhag e. Multilevel degenerative changes of the cervical spine without fracture. Electronically signed by: Venu Reynaga MD 02/14/2020 6:39 AM CDT Due to temporary technical issues with the PACS/Fluency reporting system, reports are being signed by the in house radiologist without review as a courtesy to ensure prompt reporting. The interpreting r adiologist is fully responsible for the content of the report.
== END 2020-02-14 08:25 | disposition home or self-care (01) ==
LOC: ER 06:00
PROC: 0JQ00ZZ Repair Scalp Subcutaneous Tissue and Fascia, Open Approach (ICD-10-PCS; principal; 2020-02-14)
DX: S01.01XA Laceration without foreign body of scalp, initial encounter (principal); W01.198A Fall on same level from slipping, tripping and stumbling with subsequent striking against other object, initial encounter; Y93.01 Activity, walking, marching and hiking; Y92.9 Unspecified place or not applicable; I10 Essential (primary) hypertension; E03.9 Hypothyroidism, unspecified; Z88.5 Allergy status to narcotic agent
CPT/HCPCS: 70450; 72125; 99285; G0390

== ENCOUNTER 2020-02-25 10:43 | Emergency (ER) | payer OTHER, MEDICARE ==
--- OUTSIDE RECORDS SUMMARY | 2020-02-25 10:51 | XMS REPORT | Continuity of Care Document ---
:1935 Author Organization [facility] t Address [address] [place] [address] Care Team Providers Name Role Phone Unavailable [...] Potassium-H Edmonds defined [facility] ent [facility] Procedures This patient has no known procedures. Encounters Start End Encounter Admission Attending Care Care Encounter Source Date/Time Date/Time Type Type Clinicians Facility Department ID 2019-06-14 2019-06-14 Outpatient Doug Aaron [id number] [facility] 09:00:00 09:00:00 t [facility] Joint [facility] a [facility] of [facility] ent [facility] Results This patient has no known results.
--- NOTE | 2020-02-25 10:56 | ER ---
Nurse's Notes [facility] Name: Tiara Gooden Age: 84 yrs Sex: Female : 1935 Arrival Date: 02/25/2020 Time: 10:45 Bed 14 Private MD: Ariel Garzon V Diagnosis: Encounter for removal of sutures-rudolph Presentation: 02/24 10:52 Chief complaint: Patient states: staple removal from scalp. Coronavirus screen: Client jl7 denies travel out of the [place] in the last 14 days. At this time, the client does not indicate any symptoms associated with coronavirus-19. Ebola Screen: No symptoms or risks identified at this time. Initial Sepsis Screen: Does the patient meet any 2 criteria? No. Patient's initial sepsis screen is negative. Does the patient have a suspected source of infection? No. Patient's initial sepsis screen is negative. Risk Assessment: Do you want to hurt yourself or someone else? Patient reports no desire to harm self or others. Onset of symptoms. Care prior to arrival: None. 10:52 Method Of Arrival: Ambulatory jl7 10:52 Acuity: ANNA 4 jl7 Triage Assessment: 10:54 General: Appears in no apparent distress. comfortable, Behavior is calm, cooperative, jl7 appropriate for age. Pain: Denies pain. Neuro: Level of Consciousness is awake, alert, obeys commands, Oriented to person, place, time, situation. Cardiovascular: Patient's skin is warm and dry. Respiratory: Airway is patent Respiratory effort is even, unlabored, Respiratory pattern is regular, symmetrical. Derm: Skin is pink, warm \T\ dry. Historical: - Allergies: 10:54 Codeine; jl7 - PMHx: 10:54 Hypertension; Hypothyroidism; macular degeneration; jl7 - PSHx: 10:54 Thyroidectomy; jl7 - Immunization history:: Adult Immunizations up to date. - Social history:: Smoking status: Patient denies any tobacco usage or history of. Screenin:57 Abuse screen: Denies threats or abuse. Denies injuries from another. Nutritional jl7 screening: No deficits noted. Tuberculosis screening: No symptoms or risk factors identified. Fall Risk None identified. Assessment: 10:57 General: See triage assessment. jl7 Vital Signs: 10:55 BP 137 / 79; Pulse 92; Resp 19; Temp 97.9; Pulse Ox 99% ; Pain 0/10; jl7 ED Course: 10:45 Patient arrived in ED. ag5 10:45 Ariel Garzon MD is Private Physician. ag5 10:48 Anita Birmingham FNP-C [facility]. kb 10:48 Miguel A Barron MD is Attending Physician. kb 10:53 Triage completed. jl7 10:54 Arm band placed on right wrist. jl7 10:57 Patient has correct armband on for positive identification. jl7 10:57 Staple removal. Patient did not have IV access during this emergency room visit. jl7 11:00 Lisa Nelson, RN is Primary Nurse. jl7 Administered Medications: No medications were administered Outcome: 10:56 Discharge ordered by MD. kb 11:00 Discharged to home ambulatory. jl7 11:00 Condition: stable 11:00 Discharge instructions given to patient, Instructed on discharge instructions, follow up and referral plans. Demonstrated understanding of instructions, follow-up care. 11:00 Patient left the ED. jl7 Signatures: Anita Birmingham FNP-C MOLDING UTILITY WORKER-Ckb Lisa Nelson, RN RN jl7 Mercedes Cortes ag5 Corrections: (The following items were deleted from the chart) 10:57 10:52 Acuity: ANNA 5 jl7 jl7
--- NOTE | 2020-02-25 10:56 | EDPHYS ---
Physician Documentation [facility] Name: Tiara Gooden Age: 84 yrs Sex: Female : 1935 Arrival Date: 02/25/2020 Time: 10:45 Bed 14 Private MD: Ariel Garzon V ED Physician Miguel A Barron HPI: 02/24 11:00 This 84 yrs old Female presents to ER via Ambulatory with complaints of kb Staple Removal. 11:00 The patient has rudolph on the scalp. Previous treatment: The patient was initially kb treated 11 day(s) ago, the care was rendered at [facility]. Sutures/rudolph progress: The patient has no c/o's. The wound is well-healing with no redness, swelling, discharge, or dehiscence reported. The patient has not experienced similar symptoms in the past. The patient has not recently seen a physician. Historical: - Allergies: 10:54 Codeine; jl7 - PMHx: 10:54 Hypertension; Hypothyroidism; macular degeneration; jl7 - PSHx: 10:54 Thyroidectomy; jl7 - Immunization history:: Adult Immunizations up to date. - Social history:: Smoking status: Patient denies any tobacco usage or history of. ROS: 10:59 Constitutional: Negative for fever, chills, and weight loss, Cardiovascular: Negative kb for chest pain, palpitations, and edema, Respiratory: Negative for shortness of breath, cough, wheezing, and pleuritic chest pain, Abdomen/GI: Negative for abdominal pain, nausea, vomiting, diarrhea, and constipation, MS/Extremity: Negative for injury and deformity, Neuro: Negative for headache, weakness, numbness, tingling, and seizure. 10:59 Skin: Positive for rudolph in place . Exam: 10:59 Constitutional: This is a well developed, well nourished patient who is awake, alert, kb and in no acute distress. Head/Face: Normocephalic, atraumatic. Chest/axilla: Normal chest wall appearance and motion. Nontender with no deformity. No lesions are appreciated. Cardiovascular: Regular rate and rhythm with a normal S1 and S2. No gallops, murmurs, or rubs. Normal PMI, no JVD. No pulse deficits. Respiratory: Lungs have equal breath sounds bilaterally, clear to auscultation and percussion. No rales, rhonchi or wheezes noted. No increased work of breathing, no retractions or nasal flaring. Abdomen/GI: Soft, non-tender, with normal bowel sounds. No distension or tympany. No guarding or rebound. No evidence of tenderness throughout. MS/ Extremity: Pulses equal, no cyanosis. Neurovascular intact. Full, normal range of motion. Neuro: Awake and alert, GCS 15, oriented to person, place, time, and situation. Cranial nerves II-XII grossly intact. Motor strength 5/5 in all extremities. Sensory grossly intact. Cerebellar exam normal. Normal gait. 10:59 Skin: Wound recheck: Staple laceration closure: the wound is healing well, the edges are well approximated, no evidence of dehiscence, no drainage, no erythema, no swelling. Vital Signs: 10:55 BP 137 / 79; Pulse 92; Resp 19; Temp 97.9; Pulse Ox 99% ; Pain 0/10; jl7 Procedures: 10:59 Suture/Staple removal: Removed 10 rudolph, from scalp, site appears well healed, kb Patient tolerated well. MDM: 10:51 Patient medically screened. kb 10:58 Data reviewed: vital signs, nurses notes. Data interpreted: Pulse oximetry: on room air kb is 99 %. Interpretation: normal. Counseling: I had a detailed discussion with the patient and/or guardian regarding: the historical points, exam findings, and any diagnostic results supporting the discharge/admit diagnosis, the need for outpatient follow up, a family practitioner, to return to the emergency department if symptoms worsen or persist or if there are any questions or concerns that arise at home. Administered Medications: No medications were administered Disposition: 02/25/20 10:56 Discharged to Home. Impression: Encounter for removal of sutures - rudolph. - Condition is Stable. - Discharge Instructions: Suture Removal, Care After. - Medication Reconciliation Form, Thank You Letter, Antibiotic Education, Prescription Opioid Use form. - Follow up: Emergency Department; When: As needed; Reason: Worsening of condition. Follow up: Private Physician; When: 2 - 3 days; Reason: Recheck today's complaints, Continuance of care, Re-evaluation by your physician. Addendum: 02/26/2020 13:37 Co-signature as Attending Physician, Miguel A Barron MD I agree with the assessment and c pisano plan of care. Signatures: Anita Birmingham, KNITTER HAND-C KNITTER HAND-Ckb Miguel A Barron MD MD cha Leal, Jahala, RN RN jl7 Corrections: (The following items were deleted from the chart) 02/24 11:00 10:56 02/25/2020 10:56 Discharged to Home. Impression: Encounter for removal of sutures jl7 - rudolph. Condition is Stable. Forms are Medication Reconciliation Form, Thank You Letter, Antibiotic Education, Prescription Opioid Use. Follow up: Emergency Department; When: As needed; Reason: Worsening of condition. Follow up: Private Physician; When: 2 - 3 days; Reason: Recheck today's complaints, Continuance of care, Re-evaluation by your physician. kb
[2020-02-25 11:16] VITALS: BP 137/79; TEMP 97.9; O2SAT 99
== END 2020-02-25 11:00 | disposition home or self-care (01) ==
LOC: ER 10:43
DX: Z48.02 Encounter for removal of sutures (principal)
CPT/HCPCS: 99281

== ENCOUNTER 2020-02-27 19:07 | Emergency (ER) | payer OTHER, MEDICARE ==
--- OUTSIDE RECORDS SUMMARY | 2020-02-27 19:09 | XMS REPORT | Continuity of Care Document ---
:1935 Author Organization [facility] t Address [address] [place] [address] Care Team Providers Name Role Phone Unavailable [...] Potassium-H Edmonds defined [facility] Procedures This patient has no known procedures. Encounters Start End Encounter Admission Attending Care Care Encounter Source Date/Time Date/Time Type Type Clinicians Facility Department ID 2019-06-14 2019-06-14 Outpatient Doug Aaron [id number] [facility] 09:[facility] 09:00:00 [facility] a Clinic of Clinic [facility] Results This patient has no known results.
[2020-02-27] MEDS ORDERED: NA CHLORIDE 0.9% 500 ML ONE ×2 (20:11→22:33)
[2020-02-27 20:43] LABS: Absolute Lymphocytes (CBC) 1.3 K/uL (0.7-4.9); Basophils % 0.4 % (0-1.3); Hematocrit 34.7 % (36.0-45.0); Lymphocytes % 10.3 % (15.3-44.8); MPV 8.4 fL (7.6-11.3); RBC Red Blood Cell Count 4.06 M/uL (3.86-4.86)
[2020-02-27 20:58] LABS: Albumin 3.8 g/dL (3.4-5.0); Bilirubin Direct 0.1 mg/dL (0-0.2); Bilirubin Total 0.2 mg/dL (0.2-1.0); Potassium 4.3 mmol/L (3.5-5.1); Protein, Total 7.3 g/dL (6.4-8.2)
[2020-02-27 22:59] LABS: Urine Blood NEGATIVE (NEG); Urine Glucose NEGATIVE (NEG); Urine Protein NEGATIVE (NEG)
--- NOTE | 2020-02-27 23:46 | ER ---
Nurse's Notes [facility] Name: Tiara Gooden Age: 84 yrs Sex: Female : 1935 Arrival Date: 02/27/2020 Time: 19:08 Bed 17 Private MD: Diagnosis: Dehydration;Adverse effect of bowel prep for colonoscopy Presentation: 02/26 19:12 Chief complaint: EMS states: She was drinking her colon prep for a colonoscopy she is ph scheduled to have tomorrow at 8am. After drinking the colon prep she began reporting nausea, vomiting, diarrhea and weakness. her BGL was 148 all other vital signs stable. Coronavirus screen: Client denies travel out of the [place] in the last 14 days. At this time, the client does not indicate any symptoms associated with coronavirus-19. Ebola Screen: No symptoms or risks identified at this time. Initial Sepsis Screen: Does the patient meet any 2 criteria? HR > 90 bpm. Yes Does the patient have a suspected source of infection? No. Patient's initial sepsis screen is negative. Risk Assessment: Do you want to hurt yourself or someone else? Patient reports no desire to harm self or others. Onset of symptoms was February 27, 2020. Transition of care: patient was not received from another setting of care. 19:12 Method Of Arrival: EMS: [facility] 19:12 Acuity: ANNA 3 ph Historical: - Allergies: 19:17 Codeine; ph - Home Meds: 19:17 levothyroxine oral [Active]; losartan Oral [Active]; ph - PMHx: 19:17 Hypertension; Hypothyroidism; macular degeneration; rectal mass; ph - PSHx: 19:17 Thyroidectomy; Hysterectomy; ph - Immunization history:: Adult Immunizations up to date. - Social history:: Smoking status: Patient denies any tobacco usage or history of. Patient/guardian denies using alcohol, street drugs. - Family history:: not pertinent. - Hospitalizations: : No recent hospitalization is reported. Screenin:08 Abuse screen: Denies threats or abuse. Nutritional screening: No deficits noted. jb4 Tuberculosis screening: No symptoms or risk factors identified. Fall Risk None identified. Assessment: 19:08 General: Appears in no apparent distress. comfortable, Behavior is calm, cooperative, jb4 appropriate for age. Pain: Denies pain. Neuro: Level of Consciousness is awake, alert, obeys commands, Oriented to person, place, time, situation. Cardiovascular: Patient's skin is warm and dry. Respiratory: Airway is patent Respiratory effort is even, unlabored, Respiratory pattern is regular, symmetrical. GI: No signs and/or symptoms were reported involving the gastrointestinal system. : No signs and/or symptoms were reported regarding the genitourinary system. EENT: No signs and/or symptoms were reported regarding the EENT system. Derm: Skin is intact, Skin is pink, warm \T\ dry. Musculoskeletal: Circulation, motion, and sensation intact. Range of motion: intact in all extremities. 20:00 Reassessment: Patient appears in no apparent distress at this time. Patient and/or jb4 family updated on plan of care and expected duration. Pain level reassessed. Patient is alert, oriented x 3, equal unlabored respirations, skin warm/dry/pink. 21:10 Reassessment: Patient appears in no apparent distress at this time. Patient and/or jb4 family updated on plan of care and expected duration. Pain level reassessed. Patient is alert, oriented x 3, equal unlabored respirations, skin warm/dry/pink. Pt remains feeling dizzy upon standing. 22:38 Reassessment: Patient appears in no apparent distress at this time. Patient and/or jb4 family updated on plan of care and expected duration. Pain level reassessed. Patient is alert/active/playful, equal unlabored respirations, skin warm/dry/pink. Pt gave verbal consent to update her son, Robert, about POC. 02/27 00:19 Reassessment: Patient appears in no apparent distress at this time. Patient and/or jb4 family updated on plan of care and expected duration. Pain level reassessed. Patient is alert, oriented x 3, equal unlabored respirations, skin warm/dry/pink. Contacted son and informed him of intent for discharge and pt's need for a ride home. Son verbalized intent to come forklift picker the PT. Vital Signs: 02/26 19:12 BP 181 / 86; Pulse 100; Resp 16; Temp 98.3; Pulse Ox 100% on R/A; Weight 72.12 kg (R); ph Height 5 ft. 5 in. (165.10 cm) (R); Pain 0/10; 20:30 BP 163 / 76; Pulse 96; Resp 16; Pulse Ox 98% on R/A; jb4 21:11 BP 155 / 81; Pulse 100; Resp 16; Pulse Ox 100% on R/A; jb4 21:12 BP 163 / 86; Pulse 97; Resp 16; Pulse Ox 99% on R/A; jb4 21:13 BP 145 / 85; Pulse 101; Resp 16; Pulse Ox 100% on R/A; jb4 22:30 BP 154 / 75; Pulse 103; Resp 16; Pulse Ox 100% on R/A; jb4 19:12 Body Mass Index 26.46 (72.12 kg, 165.10 cm) ph ED Course: 19:08 Patient arrived in ED. cf2 19:08 Patient has correct armband on for positive identification. Bed in low position. Call jb4 light in reach. Side rails up X 1. Pulse ox on. NIBP on. 19:12 Temi Hendricks, RN is Primary Nurse. ph 19:16 Triage completed. ph 19:17 Arm band placed on right wrist. ph 19:18 Teja Mcmahon, RN is Primary Nurse. jb4 19:20 Malik Corona MD is Attending Physician. rn 20:20 Initial lab(s) drawn, by wy, sent to lab. Inserted saline lock: 20 gauge in right jb4 antecubital area, using aseptic technique. Blood collected. 23:43 Hesham Ashford MD is Referral Physician. rn 02/27 01:00 No provider procedures requiring assistance completed. IV discontinued, intact, jb4 bleeding controlled, No redness/swelling at site. Pressure dressing applied. Administered Medications: 02/26 20:29 Drug: NS 0.9% 500 ml Route: IV; Rate: bolus; Site: right antecubital; jb4 21:00 Follow up: Response: No adverse reaction; IV Status: Completed infusion jb4 22:24 Drug: NS 0.9% 500 ml Route: IV; Rate: bolus; Site: right antecubital; jb4 22:50 Follow up: Response: No adverse reaction; IV Status: Completed infusion jb4 23:55 Drug: NS 0.9% 250 ml Route: IV; Rate: bolus; Site: right antecubital; jb4 02/27 00:10 Follow up: Response: No adverse reaction; IV Status: Completed infusion jb4 Outcome: 02/26 23:45 Discharge ordered by . rn 02/27 01:00 Discharged to home via wheelchair, with family. jb4 Condition: stable Discharge instructions given to patient, family, Instructed on discharge instructions, follow up and referral plans. Demonstrated understanding of instructions, follow-up care. 01:03 Patient left the ED. sg Signatures: Justo Richard RN RN sg Malik Corona MD MD rn Hall, Patricia, RN RN Teja Mcmahon RN RN jb4 Rony Felix cf2
--- NOTE | 2020-02-27 23:46 | EDPHYS ---
Physician Documentation [facility] Name: Tiara Gooden Age: 84 yrs Sex: Female : 1935 Arrival Date: 02/27/2020 Time: 19:08 Bed 17 Private MD: ED Physician Malik Corona HPI: 02/26 19:42 This 84 yrs old Female presents to ER via EMS with complaints of General rn Weakness. 19:42 Reports doing bowel prep today for colonoscopy scheduled in AM, reports using bathroom, rn got lightheaded, generalized weakness, threw up once, did not pass out, states son panicked and called 911. Prior to bowel prep felt fine. Currently denies fever/cough/sob/chest pain/palpitations. Reports has known rectal mass and that was reason for colonoscopy. No rectal bleeding. . Onset: The symptoms/episode began/occurred today. Severity of symptoms: At their worst the symptoms were moderate in the emergency department the symptoms have improved. The patient has not experienced similar symptoms in the past. The patient has not recently seen a physician. Historical: - Allergies: 19:17 Codeine; ph - Home Meds: 19:17 levothyroxine oral [Active]; losartan Oral [Active]; ph - PMHx: 19:17 Hypertension; Hypothyroidism; macular degeneration; rectal mass; ph - PSHx: 19:17 Thyroidectomy; Hysterectomy; ph - Immunization history:: Adult Immunizations up to date. - Social history:: Smoking status: Patient denies any tobacco usage or history of. Patient/guardian denies using alcohol, street drugs. - Family history:: not pertinent. - Hospitalizations: : No recent hospitalization is reported. ROS: 19:42 Constitutional: Negative for fever, chills, and weight loss, Eyes: Negative for injury, rn pain, redness, and discharge, Neck: Negative for injury, pain, and swelling, Cardiovascular: Negative for chest pain, palpitations, and edema, Respiratory: Negative for shortness of breath, cough, wheezing, and pleuritic chest pain, Abdomen/GI: + abd cramping and vomiting x 1 MS/Extremity: Negative for injury and deformity, Skin: Negative for injury, rash, and discoloration, Neuro: Negative for headache, weakness, numbness, tingling, and seizure. Exam: 19:42 Constitutional: This is a well developed, well nourished patient who is awake, alert, rn and in no acute distress. Head/Face: Normocephalic, atraumatic. ENT: dry MM Cardiovascular: Regular rate and rhythm. No pulse deficits. Respiratory: Speaking full sentences, unlabored. No increased work of breathing, no retractions or nasal flaring. Abdomen/GI: soft, non-tender, non-distended Skin: Warm, dry MS/ Extremity: Pulses equal, no cyanosis. Neurovascular intact. Full, normal range of motion. Equal circumference. Neuro: Awake and alert, GCS 15, oriented to person, place, time, and situation. Cranial nerves II-XII grossly intact. Motor strength 4/5 in all extremities. Sensory grossly intact. Cerebellar exam normal 21:24 ECG was reviewed by the Attending Physician. rn Vital Signs: 19:12 BP 181 / 86; Pulse 100; Resp 16; Temp 98.3; Pulse Ox 100% on R/A; Weight 72.12 kg (R); ph Height 5 ft. 5 in. (165.10 cm) (R); Pain 0/10; 20:30 BP 163 / 76; Pulse 96; Resp 16; Pulse Ox 98% on R/A; jb4 21:11 BP 155 / 81; Pulse 100; Resp 16; Pulse Ox 100% on R/A; jb4 21:12 BP 163 / 86; Pulse 97; Resp 16; Pulse Ox 99% on R/A; jb4 21:13 BP 145 / 85; Pulse 101; Resp 16; Pulse Ox 100% on R/A; jb4 22:30 BP 154 / 75; Pulse 103; Resp 16; Pulse Ox 100% on R/A; jb4 19:12 Body Mass Index 26.46 (72.12 kg, 165.10 cm) ph MDM: 19:20 Patient medically screened. rn 22:46 ED course: Unable to get a hold of Dr. Ashford, left a message regarding patient's rn findings and presentation.. 23:42 Differential Diagnosis dehydration, volume depletion, adverse reaction to bowel prep. rn Data reviewed: vital signs, nurses notes, lab test result(s), EKG, and as a result, I will discharge patient. Counseling: I had a detailed discussion with the patient and/or guardian regarding: the historical points, exam findings, and any diagnostic results supporting the discharge/admit diagnosis, lab results, the need for outpatient follow up, to return to the emergency department if symptoms worsen or persist or if there are any questions or concerns that arise at home. Response to treatment: the patient's symptoms have markedly improved after treatment, patient is well hydrated. and as a result, I will discharge patient. Special discussion: I discussed with the patient/guardian in detail that at this point there is no indication for admission to the hospital. It is understood, however, that if the symptoms persist or worsen the patient needs to return immediately for re-evaluation. ED course: Pt improved, states feels much better, no hypotension, given IV fluids here, plans to go home, complete bowel prep and continue with plan for colonoscopy in AM with Dr. Ashford unless begins to feel worse again. . 02/26 19:31 Order name: Basic Metabolic Panel; Complete Time: 21:20 rn 02/26 19:31 Order name: CBC with Diff; Complete Time: 20:49 rn 02/26 19:31 Order name: Hepatic Function; Complete Time: 21:20 rn 02/26 19:31 Order name: Lipase; Complete Time: 21:20 rn 02/26 19:31 Order name: Urine Microscopic Only; Complete Time: 00:17 rn 02/26 22:07 Order name: Urine Dipstick--Ancillary (enter results); Complete Time: 00:17 ds4 02/26 19:31 Order name: IV Saline Lock; Complete Time: 20:28 rn 02/26 19:31 Order name: Labs collected and sent; Complete Time: 20:29 rn 02/26 19:31 Order name: EKG; Complete Time: 19:31 rn 02/26 19:31 Order name: EKG - Nurse/Tech; Complete Time: 20:15 rn 02/26 19:31 Order name: Orthostatics; Complete Time: 21:32 rn 02/26 19:31 Order name: Urine Dipstick-Ancillary (obtain specimen); Complete Time: 22:04 rn EC:24 Rate is 97 beats/min. Rhythm is regular. QRS Prospect is Normal. NC interval is normal. QRS rn interval is normal. QT interval is normal. No Q waves. T waves are Normal. No ST changes noted. Clinical impression: NSR w/ Non-specific ST/T Changes. Interpreted by me. Reviewed by me. Administered Medications: 20:29 Drug: NS 0.9% 500 ml Route: IV; Rate: bolus; Site: right antecubital; jb4 21:00 Follow up: Response: No adverse reaction; IV Status: Completed infusion jb4 22:24 Drug: NS 0.9% 500 ml Route: IV; Rate: bolus; Site: right antecubital; jb4 22:50 Follow up: Response: No adverse reaction; IV Status: Completed infusion jb4 23:55 Drug: NS 0.9% 250 ml Route: IV; Rate: bolus; Site: right antecubital; jb4 02/27 00:10 Follow up: Response: No adverse reaction; IV Status: Completed infusion jb4 Disposition: 02/27/20 23:45 Discharged to Home. Impression: Dehydration, Adverse effect of bowel prep for colonoscopy. - Condition is Stable. - Discharge Instructions: Dehydration, Adult, Colonoscopy. - Medication Reconciliation Form, Thank You Letter, Antibiotic Education, Prescription Opioid Use form. - Follow up: Hesham Ashford MD; When: Tomorrow; Reason: Recheck today's complaints, Re-evaluation by your physician. - Problem is new. - Symptoms have improved. Signatures: Dispatcher [employer] EDMS Justo Richard RN RN sg Nieto, Roman, MD MD rn Hall, Patricia, RN RN ph Bryson, James, RN RN jb4 Corrections: (The following items were deleted from the chart) 01:03 02/26 23:45 02/27/2020 23:45 Discharged to Home. Impression: Dehydration; Adverse sg effect of bowel prep for colonoscopy. Condition is Stable. Forms are Medication Reconciliation Form, Thank You Letter, Antibiotic Education, Prescription Opioid Use. Follow up: Hesham Ashford; When: Tomorrow; Reason: Recheck today's complaints, Re-evaluation by your physician. Problem is new. Symptoms have improved. rn
[2020-02-27] MEDS ORDERED: NA CHLORIDE 0.9% 250 ML ONE (23:57)
[2020-02-28 00:12] LABS: Urine Bacteria <20 /HPF (<20); Urine RBC NONE SEEN /HPF (NONE SEEN); Urine Urothelial Cells <5 /HPF (NONE SEEN)
[2020-02-28 00:13] LABS: Urine Culture Reflex Order NOT NEEDED
[2020-02-28 02:08] VITALS: TEMP 98.3
[2020-02-28 02:13] VITALS: O2SAT 100
[2020-02-28 02:15] VITALS: BP 154/75
== END 2020-02-28 01:03 | disposition home or self-care (01) ==
LOC: ER 19:07
DX: E86.0 Dehydration (principal); R11.2 Nausea with vomiting, unspecified; T47.4X5A Adverse effect of other laxatives, initial encounter; I10 Essential (primary) hypertension; E03.9 Hypothyroidism, unspecified; Z88.5 Allergy status to narcotic agent
CPT/HCPCS: 96361; 93005; 85025; 80048; 36415; 80076; 83690; 96374; 99284; J7050; J7040 ×2; 81003; 81015

== ENCOUNTER 2020-03-14 07:09 | Day surgery (SDC) | payer OTHER, MEDICARE ==
--- OUTSIDE RECORDS SUMMARY | 2020-03-14 07:15 | XMS REPORT | Continuity of Care Document ---
:1935 Author Organization [facility] t Address [address] [place] [address] Care Team Providers Name Role Phone Unavailable [...] Potassium-H Edmonds defined [facility] Procedures This patient has no known procedures. Encounters Start End Encounter Admission Attending Care Care Encounter Source Date/Time Date/Time Type Type Clinicians Facility Department ID 2019-06-14 2019-06-14 Outpatient Doug Aaron [id number] [facility] 09:00:00 09:00:00 t [facility] Joint [facility] a Clinic of Clinic [facility] ent [facility] Results This patient has no known results.
[2020-03-14] MEDS: HEPARIN 5000 UNIT/ML 1 ML VIAL ONE ×2 (07:30→09:00)
[2020-03-14] MEDS: LIDOCAINE 1% MPF 30 ML VIAL ONE ×2 (07:30→08:47)
[2020-03-14] MEDS ORDERED: propofoL 200 MG/20 ML VIAL IV ONE (07:31)
[2020-03-14] MEDS ORDERED: MIDAZOLAM HCL 2 MG/2 ML INJ ONE (07:31)
[2020-03-14] MEDS ORDERED: LIDOCAINE 1% MPF 5 ML VIAL ONE (07:31)
[2020-03-14] MEDS ORDERED: FENTANYL CITR 100 MCG/2 ML ONE (07:31)
[2020-03-14] MEDS ORDERED: NS 0.9% VIAL 20 ML ONE (07:34)
[2020-03-14] MEDS ORDERED: Ringers Lactate 1,000 ML IV ONE (08:22)
[2020-03-14] MEDS: CEFAZOLIN/SWI 1gm 1 GM/10 ML SYR ONE ×2 (08:30→08:49)
[2020-03-14] MEDS ORDERED: KETOROLAC 30 MG/ML INJ ONE (08:51)
--- NOTE | 2020-03-14 09:28 | RAD REPORT ---
EXAM DESCRIPTION: RAD - Fluoroscopy <1 Hour - 03/14/2020 9:07 am CLINICAL HISTORY: Device placement central venous catheter placement FINDINGS: A central venous catheter was placed into the superior vena cava. Five fluoroscopic spot i mages are submitted. The examination was performed by Dr. Cason Fluoroscopy time 0.3 minutes
--- NOTE | 2020-03-14 09:49 | RAD REPORT ---
EXAM DESCRIPTION: RADChest Single View03/14/2020 9:37 am CLINICAL HISTORY: Device placement/central venous catheter placement IMPRESSION: Central venous catheter has been placed into the distal superior vena cava. No pneumothorax
--- NOTE | 2020-03-14 10:16 | OP ---
Date of Procedure: 03/14/2020 Surgeon: Kayden Cason MD Project Management Advisor: MARY Juan. Preoperative Diagnosis: Anal carcinoma. Postoperative Diagnosis: Anal carcinoma. Procedure: Placement of right IJ Port-A-Cath and interpretation of intraoperative fluoroscopy. Estimated Blood Loss: Minimal. Specimen: None. Findings: Normal anatomy. Anesthesia: MAC. Complications: None. Disposition: The patient tolerated the procedure in stable condition, taken to Recovery in good gene ral condition. Procedure In Detail: The patient was brought to the OR and placed in supine position. General anest hesia was begun. Patient was prepped and draped in the usual sterile fashion and then Marcaine 0.5% was infiltrated locally. An 18-gauge needle was used to access the right IJ vein. Guidewire was pas sed. Position was confirmed with fluoroscopy. 3 cm counterincision was made on the right anterior c hest. Pocket was created. Tunneling device was used to tunnel the catheter between the 2 wounds. S eldinger technique was used. Tip of the catheter was placed in the SVC under fluoroscopy, cut to brett ropriate size, and attached to the Port-A-Cath device. Port-A-Cath device was attached to the subcut aneous tissue with 3-0 Vicryl and then 3-0 chromic was used to approximate the subcutaneous tissue an d close the skin. Port was flushed with heparin and packed with heparin with good blood flow. Steri le dressing was applied. The patient was awakened and taken to recovery room in good general conditi on. Chest x-ray has been ordered. If negative, patient will be discharged to home. Disposition: Home. Condition: Stable. Discharge Instructions: Resume home medications and diet. Activity as tolerated. No heavy lifting. Remove outer dressing in 2 days. Shower. Keep wound clean and dry keep. Keep Steri-Strips on at all times. Follow up with cancer center. Call for appointment. Follow up in my office in 2 weeks. Call for appointment. Ultracet 1 tablet p.o. q.4 p.r.n. pain. /MODL Voice ID: [id number] Report ID: [id number]
[2020-03-14] MEDS ORDERED: TRAMADOL 37.5mg/APAP 325mg PER TAB ONE (10:25)
[2020-03-14 13:42] VITALS: BP 137/84; O2SAT 100
[2020-03-14 13:45] VITALS: TEMP 97.1
== END 2020-03-14 11:05 | disposition home or self-care (01) ==
LOC: OR 07:09
PROVIDERS: ATTEND Surgery
PROC: 05HM33Z Insertion of Infusion Device into Right Internal Jugular Vein, Percutaneous Approach (ICD-10-PCS; principal; 2020-03-14 08:15)
DX: C21.0 Malignant neoplasm of anus, unspecified (principal); Z20.828 Contact with and (suspected) exposure to other viral communicable diseases
CPT/HCPCS: 71045; 36561; U0002; J2704; J1644 ×2; J2250; J3010; J0690; J7120; C1788; 76000

== ENCOUNTER 2020-10-30 08:19 | Day surgery (SDC) | payer OTHER, MEDICARE ==
[2020-10-29 16:03] LABS: Absolute Lymphocytes (CBC) 1.8 K/uL (0.7-4.9); Basophils % 0.5 % (0-1.3); Hematocrit 36.7 % (36.0-45.0); Lymphocytes % 30.1 % (15.3-44.8); MPV 7.9 fL (7.6-11.3); RBC Red Blood Cell Count 4.24 M/uL (3.86-4.86)
[2020-10-29 16:14] LABS: Potassium 4.1 mmol/L (3.5-5.1)
[2020-10-30] MEDS ORDERED: CEFAZOLIN/SWI 1gm 1 GM/10 ML SYR ONE (08:53)
[2020-10-30] MEDS ORDERED: Ringers Lactate 1,000 ML IV ONE (08:53)
[2020-10-30] MEDS ORDERED: propofoL 200 MG/20 ML VIAL IV ONE (09:51)
[2020-10-30] MEDS ORDERED: FENTANYL CITR 100 MCG/2 ML ONE (09:51)
[2020-10-30] MEDS ORDERED: LIDOCAINE 2% MPF 5 ML VIAL ONE (09:54)
[2020-10-30] MEDS ORDERED: ONDANSETRON 4 MG/2 ML VIAL ONE (09:54)
[2020-10-30] MEDS ORDERED: dexAMETHasone 10 MG/ML VIAL ONE (10:57)
[2020-10-30] MEDS ORDERED: EPHEDRINE SULF 50 MG/ML VIAL ONE (11:02)
--- NOTE | 2020-10-30 12:39 | OP ---
Date of Procedure: 10/30/2020 Surgeon: Kayden Cason MD Nut Tightener: MARY Vasques. Preoperative Diagnoses: Anal carcinoma, right arm mass, status post Port-A-Cath device. Postoperative Diagnoses: Anal carcinoma, right arm mass, status post Port-A-Cath device. Procedures: 1.Removal of Port-A-Cath device. 2.Wide excision of right arm mass 4 x 2 cm with layered closure. Estimated Blood Loss: Minimal. Specimen: Right arm mass, margins free and Port-A-Cath device for identification. Finding: As above. Anesthesia: General. Complications: None. Disposition: The patient tolerated the procedure in stable condition and taken to Recovery in good g eneral condition. Procedure In Detail: The patient was brought to the OR and placed in supine position. General anest hesia begun. The patient was prepped and draped in usual sterile fashion. Marcaine 0.5% was infiltr ated locally. A 15-blade was used to make a 4 x 2 cm incision around this 1 cm raised mass. Subcuta neous tissue divided. The entire mass excised, labeled appropriately, and sent to Pathology. Frozen section revealed margins to be free. The official diagnosis is still pending. Then, wound irrigate d. Bleeding controlled with cautery. A 4-0 chromic was used to reapproximate the subcutaneous tissu e and then 5-0 nylon was used to close the skin. Sterile dressing applied. Then, a 3 cm incision ma de on the right anterior chest. Subcutaneous tissue divided. Port-A-Cath device identified and free d from surrounding tissue with sharp and blunt dissection, removed, and sent to pathology for identif ication. Wound irrigated. Bleeding controlled with cautery. A 3-0 chromic used to approximate the subcutaneous tissue and close the skin. Sterile dressing was applied. The patient was awakened and taken to Recovery in good general condition. Discharge Note: The patient will go to Day Surgery and home when stable. Disposition: Home. Condition: Stable. Discharge Instructions: Resume home medications and diet. Activity as tolerated. No heavy lifting. Remove outer dressing in 2 days. Shower. Keep wound clean and dry. Keep Steri-Strips on at all t imes. Follow up in my office in 10 days. Call for appointment. Ultracet 1 tablet p.o. q.4 p.r.n. p ain. /VALERIE Voice ID: [id number] Report ID: [id number]
[2020-10-30] MEDS ORDERED: TRAMADOL 37.5mg/APAP 325mg PER TAB ONE (12:47)
[2020-10-30 13:06] VITALS: BP 139/61; TEMP 96.9; O2SAT 99
== END 2020-10-30 13:00 | disposition home or self-care (01) ==
LOC: OR 08:19
PROVIDERS: ATTEND Surgery
PROC: 0JPT0WZ Removal of Totally Implantable Vascular Access Device from Trunk Subcutaneous Tissue and Fascia, Open Approach (ICD-10-PCS; principal; 2020-10-30 09:30)
PROC: 0JBG0ZZ Excision of Right Lower Arm Subcutaneous Tissue and Fascia, Open Approach (ICD-10-PCS; 2020-10-30 09:30)
DX: C44.622 Squamous cell carcinoma of skin of right upper limb, including shoulder (principal); C21.0 Malignant neoplasm of anus, unspecified; Z20.822 Contact with and (suspected) exposure to COVID-19; Z45.2 Encounter for adjustment and management of vascular access device
CPT/HCPCS: 85025; 80048; 36415; 88331; 88332; 88300; 88305; 36590; 11404; U0003; J2704; J3010; J1100; J0690; J7120; J2405

== ENCOUNTER 2021-04-04 12:34 | Inpatient (IN) | payer OTHER, MEDICARE ==
[2021-04-04] MEDS ORDERED: NA CHLORIDE 0.9% 1,000 ML ONE ×2 (12:50→14:17)
[2021-04-04] MEDS ORDERED: PROMETHAZINE INJ 25 MG/ML AMP ONE (12:50)
[2021-04-04 13:07] LABS: Absolute Lymphocytes (CBC) 0.6 K/uL (0.7-4.9); Basophils % 0.3 % (0-1.3); Hematocrit 35.4 % (36.0-45.0); Lymphocytes % 9.5 % (15.3-44.8); MPV 7.1 fL (7.6-11.3); Protime INR 0.98; RBC Red Blood Cell Count 4.07 M/uL (3.86-4.86)
--- NOTE | 2021-04-04 13:14 | RAD REPORT ---
EXAM DESCRIPTION: RAD - Chest Single View - 04/04/2021 1:08 pm CLINICAL HISTORY: CONGESTION COMPARISON: Chest Single View dated 03/14/2020; Chest Single View dated 02/13/2020; Chest Pa And Lat (2 Views) dated 03/14/2017 FINDINGS: Lines: None. Lungs: No evidence of edema or pneumonia. Pleural: No significant pleural effusions or pneumothorax. Cardiac: The heart size is within normal limits. Bones: No acute fractures. Other: IMPRESSION: No acute cardiopulmonary disease.
[2021-04-04 13:27] LABS: ALT/SGPT 23 U/L (12-78); AST/SGOT 18 U/L (15-37); Albumin 3.3 g/dL (3.4-5.0); Alkaline Phosphatase 100 U/L (45-117); BUN Blood Urea Nitrogen 13 mg/dL (7-18); Bicarbonate 25 mmol/L (21-32); Bilirubin Direct 0.1 mg/dL (0-0.2); Bilirubin Total 0.5 mg/dL (0.2-1.0); Glucose Level 134 mg/dL (74-106); Lipase 38 U/L (73-393); NT PRO-BNP 1151 pg/mL (<450); Potassium 3.8 mmol/L (3.5-5.1); Protein, Total 6.5 g/dL (6.4-8.2); Sodium Level 137 mmol/L (136-145); Troponin (Emerg Dept Use Only) < 0.02 ng/mL (0.0-0.045)
--- NOTE | 2021-04-04 14:23 | EDPHYS ---
Physician Documentation [facility] Name: Tiara Gooden Age: 85 yrs Sex: Female : 1935 Arrival Date: 04/04/2021 Time: 12:38 Bed 2 Private MD: ED Physician Trinity Gaytan HPI: 04/04 12:43 This 85 yrs old Female presents to ER via EMS with complaints of ma2 Nausea/Vomiting. 12:43 The patient presents to the emergency department with nausea, vomiting. Associated ma2 signs and symptoms: Pertinent negatives: belching, diarrhea, flatulence, GI bleeding, hematuria, nausea. Severity of symptoms: At their worst the symptoms were moderate in the emergency department the symptoms are unchanged. The patient has not experienced similar symptoms in the past. all started after maderna vaccine ]. Historical: - Allergies: 12:41 Codeine; jl7 - Home Meds: 12:41 levothyroxine oral [Active]; losartan Oral [Active]; Lumigan ophthalmic [Active]; jl7 vitamins [Active]; - PMHx: 12:41 Hypertension; Hypothyroidism; macular degeneration; rectal mass; jl7 - Immunization history:: Moderna booster. - Social history:: Smoking status: Patient denies any tobacco usage or history of. - Family history:: not pertinent. ROS: 12:43 Constitutional: Negative for fever, chills, and weight loss. ma2 12:43 All other systems are negative. Exam: 12:43 Constitutional: This is a well developed, well nourished patient who is awake, alert, ma2 and in no acute distress. Neck: Trachea midline, no thyromegaly or masses palpated, and no cervical lymphadenopathy. Supple, full range of motion without nuchal rigidity, or vertebral point tenderness. No Meningismus. Chest/axilla: Normal chest wall appearance and motion. Nontender with no deformity. No lesions are appreciated. Cardiovascular: Regular rate and rhythm with a normal S1 and S2. No gallops, murmurs, or rubs. Normal PMI, no JVD. No pulse deficits. Respiratory: Lungs have equal breath sounds bilaterally, clear to auscultation and percussion. No rales, rhonchi or wheezes noted. No increased work of breathing, no retractions or nasal flaring. Abdomen/GI: Soft, non-tender, with normal bowel sounds. No distension or tympany. No guarding or rebound. No evidence of tenderness throughout. Skin: Warm, dry with normal turgor. Normal color with no rashes, no lesions, and no evidence of cellulitis. MS/ Extremity: Pulses equal, no cyanosis. Neurovascular intact. Full, normal range of motion. Neuro: Awake and alert, GCS 15, oriented to person, place, time, and situation. Cranial nerves II-XII grossly intact. Motor strength 5/5 in all extremities. Sensory grossly intact. Cerebellar exam normal. Normal gait. Vital Signs: 12:38 Resp 19; Temp 98.8; Weight 65.77 kg; Height 5 ft. 5 in. (165.10 cm); Pain 6/10; jl7 13:12 BP 161 / 77; Pulse 74; Resp 26 S; Temp 98.4(O); Pulse Ox 96% on R/A; jd3 15:05 BP 167 / 70; Pulse 70; Resp 16 S; Pulse Ox 96% on R/A; jd3 16:42 BP 159 / 55; Pulse 74; Resp 14 S; Pulse Ox 100% on R/A; Pain 0/10; jd3 17:31 BP 162 / 74; Pulse 75; Resp 21 S; Pulse Ox 98% on R/A; jd3 12:38 Body Mass Index 24.13 (65.77 kg, 165.10 cm) 7 MDM: 12:39 Patient medically screened. [facility] 12:43 Differential diagnosis: gastritis, pancreatitis, viral gastroenteritis, gastroenteritis.[facility] 14:22 Data reviewed: vital signs, nurses notes. Counseling: I had a detailed discussion with [facility] the patient and/or guardian regarding: the historical points, exam findings, and any diagnostic results supporting the discharge/admit diagnosis, the presence of at least one elevated blood pressure reading (>120/80) during this emergency department visit, the need for further work-up and treatment in the hospital. Response to treatment: the patient's symptoms have markedly improved after treatment. ED course: . 04/04 12:40 Order name: Basic Metabolic Panel [facility] 04/04 12:40 Order name: CBC with Diff [facility] 04/04 12:40 Order name: LFT's ri2 04/04 12:40 Order name: Magnesium [facility] 04/04 12:40 Order name: NT PRO-BNP; Complete Time: 13:56 ma2 04/04 12:40 Order name: PT-INR; Complete Time: 13:14 ma2 04/04 12:40 Order name: Troponin (emerg Dept Use Only); Complete Time: 13:56 ma2 04/04 12:40 Order name: Lipase; Complete Time: 13:56 ma2 04/04 12:40 Order name: Basic Metabolic Panel; Complete Time: 13:56 EDMS 04/04 12:40 Order name: CBC with Automated Diff; Complete Time: 13:14 EDMS 04/04 12:40 Order name: Liver (Hepatic) Function; Complete Time: 13:56 EDMS 04/04 12:40 Order name: Magnesium; Complete Time: 13:56 EDMS 04/04 14:48 Order name: COVID-19 SARS RT PCR (Document "Date of Onset" if Symptomatic) 04/04 16:48 Order name: SARS-COV-2 RT PCR EDMS 04/04 12:40 Order name: XRAY Chest (1 view); Complete Time: 13:56 ma2 04/04 12:40 Order name: EKG; Complete Time: 12:41 ma2 04/04 12:40 Order name: Cardiac monitoring; Complete Time: 12:59 ma2 04/04 12:40 Order name: EKG - Nurse/Tech; Complete Time: 13:15 ma2 04/04 12:40 Order name: IV Saline Lock; Complete Time: 12:59 ma2 04/04 12:40 Order name: Labs collected and sent; Complete Time: 13:00 ma2 04/04 12:40 Order name: O2 Per Protocol; Complete Time: 12:48 ma2 04/04 12:40 Order name: O2 Sat Monitoring; Complete Time: 12:48 ma2 Administered Medications: 12:49 CANCELLED (Physician Discretion): Zofran (Ondansetron) 4 mg IVP once; over 2 minutes jd3 12:59 Drug: NS 0.9% 1000 ml Route: IV; Rate: 1 bolus; Site: left antecubital; jd3 14:00 Follow up: Response: No adverse reaction; IV Status: Completed infusion; IV Intake: jd3 1000ml 12:59 Drug: Phenergan (promethazine) 25 mg Route: IVP; Site: left antecubital; jd3 14:00 Follow up: Response: No adverse reaction; Nausea is decreased jd3 14:21 Drug: NS 0.9% 1000 ml Route: IV; Rate: 1 bolus; Site: left antecubital; jd3 15:20 Follow up: Response: No adverse reaction; IV Status: Completed infusion; IV Intake: jd3 1000ml Disposition Summary: 04/04/21 14:22 Hospitalization Ordered Hospitalization Status: Observation ma2 Provider: Jeramie Jimenez Location: Telemetry/MedSurg (observation) ma2 Condition: Stable ma2 Problem: new ma2 Symptoms: are unchanged ma2 Bed/Room Type: Standard ri2 Room Assignment: 202(04/04/21 17:08) dw Diagnosis - Nausea with vomiting, unspecified - intractable ma2 Forms: - Medication Reconciliation Form ma2 - SBAR form ma2 Signatures: Dispatcher [employer] Marleni Borges RN RN dw Leal, Jahala, RN RN Yossi Maria RN RN jd3 Trinity Gaytan MD MD ma2 Corrections: (The following items were deleted from the chart) 12:49 12:40 Zofran (Ondansetron) 4 mg IVP once; over 2 minutes ordered. ma2 jd3 17:08 14:22 ma2 dw
--- NOTE | 2021-04-04 14:23 | ER ---
Nurse's Notes [facility] Name: Tiara Gooden Age: 85 yrs Sex: Female : 1935 Arrival Date: 04/04/2021 Time: 12:38 Bed 2 Private MD: Diagnosis: Nausea with vomiting, unspecified-intractable Presentation: 04/04 12:38 Chief complaint: EMS states: Moderna booster yesterday, N/V since last night at 2200. jl7 Coronavirus screen: Vaccine status: Patient reports receiving the 2nd dose of the covid vaccine. Moderna Booster. Ebola Screen: No symptoms or risks identified at this time. Risk Assessment: Do you want to hurt yourself or someone else? Patient reports no desire to harm self or others. Onset of symptoms was April 03, 2021. 12:38 Method Of Arrival: EMS: [facility] jl7 12:38 Acuity: ANNA 3 jl7 13:06 Initial Sepsis Screen: Does the patient meet any 2 criteria? No. Patient's initial jd3 sepsis screen is negative. Does the patient have a suspected source of infection? No. Patient's initial sepsis screen is negative. Triage Assessment: 12:41 General: Appears in no apparent distress. uncomfortable, Behavior is calm, cooperative, jl7 appropriate for age. Pain: Complains of pain in sore stomach Pain currently is 6 out of 10 on a pain scale. GI: Reports nausea, vomiting. Historical: - Allergies: 12:41 Codeine; jl7 - Home Meds: 12:41 levothyroxine oral [Active]; losartan Oral [Active]; Lumigan ophthalmic [Active]; jl7 vitamins [Active]; - PMHx: 12:41 Hypertension; Hypothyroidism; macular degeneration; rectal mass; jl7 - Immunization history:: Moderna booster. - Social history:: Smoking status: Patient denies any tobacco usage or history of. - Family history:: not pertinent. Screenin:05 Abuse screen: Denies threats or abuse. Nutritional screening: No deficits noted. jd3 Tuberculosis screening: No symptoms or risk factors identified. Fall Risk IV access (20 points). Total Pelletier Fall Scale indicates No Risk (0-24 pts). Assessment: 13:02 General: Appears in no apparent distress. uncomfortable, Behavior is calm, cooperative. jd3 Pain: Complains of pain in abdomen Quality of pain is described as pt states that pain is related to vomiting. Neuro: Level of Consciousness is awake, alert, obeys commands, Oriented to person, place, time, situation. Cardiovascular: Capillary refill < 3 seconds Patient's skin is warm and dry. Respiratory: Airway is patent Respiratory effort is even, unlabored, Respiratory pattern is regular, symmetrical. GI: Abdomen is flat, non-distended, Reports nausea, vomiting, since last night. 14:01 Reassessment: Patient and/or family updated on plan of care and expected duration. Pain jd3 level reassessed. Patient is alert, oriented x 3, equal unlabored respirations, skin warm/dry/pink. Patient states feeling better. Patient states symptoms have improved. 15:05 Reassessment: Patient and/or family updated on plan of care and expected duration. Pain jd3 level reassessed. Patient is alert, oriented x 3, equal unlabored respirations, skin warm/dry/pink. 16:42 Reassessment: pt resting with eyes closed, no distress noted at this time. jd3 Vital Signs: 12:38 Resp 19; Temp 98.8; Weight 65.77 kg; Height 5 ft. 5 in. (165.10 cm); Pain 6/10; jl7 13:12 BP 161 / 77; Pulse 74; Resp 26 S; Temp 98.4(O); Pulse Ox 96% on R/A; jd3 15:05 BP 167 / 70; Pulse 70; Resp 16 S; Pulse Ox 96% on R/A; jd3 16:42 BP 159 / 55; Pulse 74; Resp 14 S; Pulse Ox 100% on R/A; Pain 0/10; jd3 17:31 BP 162 / 74; Pulse 75; Resp 21 S; Pulse Ox 98% on R/A; jd3 12:38 Body Mass Index 24.13 (65.77 kg, 165.10 cm) jl7 ED Course: 12:38 Patient arrived in ED. jl7 12:39 Trinity Gaytan MD is Attending Physician. ma2 12:40 Triage completed. jl7 12:41 Arm band placed on right wrist. jl7 12:43 Yossi Ruffin RN is Primary Nurse. jd3 13:01 Inserted saline lock: 20 gauge in left antecubital area, using aseptic technique. Blood jd3 collected. 13:06 Placed in gown. Bed in low position. Call light in reach. Side rails up X 1. Adult w/ jd3 patient. case liner on. Pulse ox on. NIBP on. 13:08 XRAY Chest (1 view) In Process Unspecified. EDMS 13:20 Maintain EMS IV. Dressing intact. Site clean \T\ dry. Gauge \T\ site: 20g to r forearm . dayana 3 13:20 IV discontinued, intact, bleeding controlled, No redness/swelling at site. Pressure jd3 dressing applied. 14:22 Jeramie Jimenez is Hospitalizing Provider. ma2 16:05 Cleaned of incontinence. brief changed. jd3 17:20 Report given to alis diaz. jd3 17:31 No provider procedures requiring assistance completed. jd3 Administered Medications: 12:49 CANCELLED (Physician Discretion): Zofran (Ondansetron) 4 mg IVP once; over 2 minutes jd3 12:59 Drug: NS 0.9% 1000 ml Route: IV; Rate: 1 bolus; Site: left antecubital; jd3 14:00 Follow up: Response: No adverse reaction; IV Status: Completed infusion; IV Intake: jd3 1000ml 12:59 Drug: Phenergan (promethazine) 25 mg Route: IVP; Site: left antecubital; jd3 14:00 Follow up: Response: No adverse reaction; Nausea is decreased jd3 14:21 Drug: NS 0.9% 1000 ml Route: IV; Rate: 1 bolus; Site: left antecubital; jd3 15:20 Follow up: Response: No adverse reaction; IV Status: Completed infusion; IV Intake: jd3 1000ml Intake: 14:00 IV: 1000ml; Total: 1000ml. jd3 15:20 IV: 1000ml; Total: 2000ml. jd3 Outcome: 14:22 Decision to Hospitalize by Provider. ma2 17:32 Admitted to Med/surg accompanied by tech, via wheelchair, room 202, with chart, Report jd3 called to alis diaz 17:32 Condition: stable 17:35 Patient left the ED. jd3 Signatures: Dispatcher [employer] EDMS Lisa Nelson RN RN jl7 Yossi Ruffin RN RN jd3 Alzahri, Mohammad, MD MD ma2
--- NOTE | 2021-04-04 14:47 | P.HP ---
Certification for Inpatient Patient admitted to: Observation With expected LOS: <2 Midnights Practitioner: I am a practitioner with admitting privileges, knowledge of patient current condition, hospital course, and medical plan of care. Services: Services provided to patient in accordance with Admission requirements found in Title 42 Section 412.3 of the Code of Federal Regulations Patient History Date of Service: 04/04/21 Reason for admission: Nausea and vomiting History of Present Illness: 85-year-old woman with a past medical history of hypothyroidism, status post thyroidectomy, hypertension and glaucoma presented to the emergency department with a complaint of nausea and vomiting that has been present since last night. She took her more than a booster dose yesterday and a few hours later developed the nausea and vomiting. Patient states that she has not been able to eat or drink as she vomits anything that goes into her mouth. She denies diarrhea. She reported abdominal discomfort mainly from retching. Blood work in the ED is unremarkable. Chest x-ray shows no acute disease. Patient with risk for dehydration and unable to tolerate anything p.o. she is hospitalized for further management. Allergies codeine Adverse Reaction (Verified 10/29/20 15:23) hyperactive Home Medications: Bimatoprost [Lumigan Opthalmic Drops] 1 drops OPTH DAILY 12/24/16 Calcium Carbonate/Vitamin D3 [Calcium 500 + Vit D 400 Tablet] 1 each PO DAILY 12/24/16 Multivitamin [Multivitamins] 1 each PO DAILY 12/24/16 Cholecalciferol (Vitamin D3) [Vitamin D3] 1,000 unit PO DAILY 03/13/20 Magnesium Oxide [Magnesium] 400 mg PO DAILY 03/13/20 Vit A,C & E/Lutein/Minerals [I-Vineet Tablet] 1 tab PO DAILY 03/13/20 Ibuprofen [Advil] 200 mg PO PRN PRN 10/29/20 Levothyroxine Sodium [Levothyroxine] 25 mcg PO DAILY 10/29/20 Losartan Potassium 25 mg PO DAILY 10/29/20 - Past Medical/Surgical History -: Hypothyroidism -: Hypertension -: Glaucoma -: Hyperlipidemia -: Osteoarthritis -: GERD -: Hysterectomy -: Arthroscopy - Family History Brother -: Diabetes - Social History Smoking Status: Never smoker Alcohol use: No CD- Drugs: No Place of Residence: Home Review of Systems Other: She denied any fever, she denied any dysuria, she denied any increased urinary frequency. Except as documented, all other systems reviewed and negative. Physical Examination - Physical Exam General: Alert, In no apparent distress, Oriented x3 HEENT: PERRLA, Mucous membr. moist/pink, Sclerae nonicteric Neck: Supple, JVD not distended Respiratory: Clear to auscultation bilaterally, Normal air movement Cardiovascular: No edema, Regular rate/rhythm, Normal S1 S2, No murmurs Gastrointestinal: Normal bowel sounds, Soft and benign, Non-distended, No tenderness Musculoskeletal: No swelling, No tenderness Integumentary: No rashes, No erythema, No cyanosis Neurological: Normal speech, Normal strength at 5/5 x4 extr, Cranial nerves 3-12 intact Lymphatics: No axilla or inguinal lymphadenopathy - Studies Laboratory Data (last 24 hrs) 04/04/21 12:56: PT 11.3, INR 0.98 04/04/21 12:56: WBC 6.20, Hgb 12.1, Hct 35.4 L, Plt Count 276 04/04/21 12:56: Sodium 137, Potassium 3.8, BUN 13, Creatinine 0.76, Glucose 134 H, Magnesium 2.0, Total Bilirubin 0.5, AST 18, ALT 23, Alkaline Phosphatase 100, Lipase 38 L Assessment and Plan - Problems (Diagnosis) (1) Intractable nausea and vomiting Current Visit: Yes Status: Acute (2) Hypothyroidism Current Visit: Yes Status: Acute (3) Essential hypertension Current Visit: Yes Status: Acute (4) GERD (gastroesophageal reflux disease) Current Visit: Yes Status: Acute - Plan Place under observation Supportive measures. IV hydration with D5 normal saline. Check UA. Monitor and optimize electrolytes. Reconcile and continue home medications. Monitor renal function. IV Protonix for GERD. - Advance Directives Does patient have a Living Will: Yes Does patient have a Durable POA for Healthcare: Yes
[2021-04-04] MEDS ORDERED: ONDANSETRON 4 MG/2 ML VIAL IV PRN (16:58)
[2021-04-04] MEDS ORDERED: SODIUM CHLORIDE 0.9% 10ML INJ IV PRN (16:58)
[2021-04-04 17:48] VITALS: O2SAT 98
[2021-04-04 18:27] VITALS: BMI 24.1
[2021-04-04] MEDS: D5 0.9 NS 1,000 ML IV SCH (18:54)
[2021-04-04] MEDS: ACETAMINOPHEN 500 MG TAB PO PRN (18:55)
[2021-04-04] MEDS: PANTOPRAZOLE 40 MG INJ IVP SCH (19:33)
[2021-04-05] MEDS: ACETAMINOPHEN 500 MG TAB PO PRN ×2 (01:05→08:53)
[2021-04-05 01:32] LABS: Urine Appearance CLEAR (Clear); Urine Bilirubin NEGATIVE (Negative); Urine Blood 1+ (Negative); Urine Color YELLOW (Yellow); Urine Glucose NEGATIVE (Negative); Urine Protein 1+ (Negative); Urine Specific Gravity 1.015 (1.005-1.030); Urine Urobilinogen 0.2 mg/dL (0.2-1.0)
[2021-04-05 01:46] LABS: Urine Bacteria >50 /HPF (<20); Urine Mucus 2+ /HPF (NONE SEEN)
[2021-04-05] MEDS: D5 0.9 NS 1,000 ML IV SCH (02:54)
[2021-04-05 05:43] LABS: Absolute Lymphocytes (CBC) 0.8 K/uL (0.7-4.9); Basophils % 0.2 % (0-1.3); Hematocrit 31.8 % (36.0-45.0); Lymphocytes % 18.9 % (15.3-44.8); MPV 7.7 fL (7.6-11.3); RBC Red Blood Cell Count 3.57 M/uL (3.86-4.86)
[2021-04-05 05:58] LABS: BUN Blood Urea Nitrogen 9 mg/dL (7-18); Bicarbonate 24 mmol/L (21-32); Glucose Level 123 mg/dL (74-106); Magnesium 2.1 mg/dL (1.8-2.4); Phosphorus 2.9 mg/dL (2.5-4.9); Potassium 3.9 mmol/L (3.5-5.1); Sodium Level 146 mmol/L (136-145)
[2021-04-05] MEDS ORDERED: POTASSIUM CL SA 10 MEQ TAB PO ONE (07:45)
[2021-04-05] MEDS: PANTOPRAZOLE 40 MG INJ IVP SCH (08:53)
[2021-04-05] MEDS: ENOXAPARIN 40 MG/0.4 ML SQ SCH (08:57)
[2021-04-05] MEDS ORDERED: KCL 20 MEQ/100 mL IVPB 20 MEQ/100 ML BAG IV SCH (09:00)
--- NOTE | 2021-04-05 10:38 | P.PN ---
Subjective Date of Service: 04/05/21 Chief Complaint: Nausea and vomiting Patient reports feeling better. She is complaining of headache. She is tolerating liquid diet. UA suggest UTI. Physical Examination - Vital Signs Temperature: 97.9 F Blood Pressure: 127/84 Pulse: 63 Respirations: 15 Pulse Ox (%): 96 - Physical Exam General: Alert, In no apparent distress, Oriented x3 HEENT: Mucous membr. moist/pink, Sclerae nonicteric Neck: JVD not distended Respiratory: Clear to auscultation bilaterally, Normal air movement Cardiovascular: Regular rate/rhythm, Normal S1 S2 Gastrointestinal: Normal bowel sounds, Soft and benign, Non-distended, No tenderness Musculoskeletal: No swelling Integumentary: No rashes Neurological: Normal speech, Normal strength at 5/5 x4 extr - Studies Laboratory Data (last 24 hrs) 04/04/21 12:56: PT 11.3, INR 0.98 04/04/21 12:56: WBC 6.20, Hgb 12.1, Hct 35.4 L, Plt Count 276 04/04/21 12:56: Sodium 137, Potassium 3.8, BUN 13, Creatinine 0.76, Glucose 134 H, Magnesium 2.0, Total Bilirubin 0.5, AST 18, ALT 23, Alkaline Phosphatase 100, Lipase 38 L Assessment And Plan - Current Problems (Diagnosis) (1) Intractable nausea and vomiting Current Visit: Yes Status: Acute (2) Hypothyroidism Current Visit: Yes Status: Acute (3) Essential hypertension Current Visit: Yes Status: Acute (4) GERD (gastroesophageal reflux disease) Current Visit: Yes Status: Acute (5) Acute cystitis without hematuria Current Visit: Yes Status: Acute - Plan Continue supportive measures. IV hydration with D5 normal saline. Start IV Rocephin for UTI. Follow urine culture. Monitor and optimize electrolytes. Monitor renal function. Oral Protonix for GERD
[2021-04-05] MEDS: NACHLORIDE 0.45% 1,000 ML IV SCH (12:27)
[2021-04-05] MEDS: LEVOTHYROXINE SOD 0.025 MG TAB PO SCH (12:27)
[2021-04-05] MEDS: CEFTRIAXONE 1 GM/NS 50 ML 1 GM/50 ML BAG IV SCH (12:28)
[2021-04-05] MEDS ORDERED: BIMATOPROST OPTH SCH (19:15)
[2021-04-06] MEDS: NACHLORIDE 0.45% 1,000 ML IV SCH ×2 (01:10→13:40)
[2021-04-06] MEDS ORDERED: HYDRALAZINE HCL 20 MG/ML VIAL IV PRN (04:13)
[2021-04-06] MEDS: PANTOPRAZOLE 40MG TABLET PO SCH (06:02)
[2021-04-06] MEDS: LEVOTHYROXINE SOD 0.025 MG TAB PO SCH (06:03)
[2021-04-06 06:08] LABS: Absolute Lymphocytes (CBC) 1.7 K/uL (0.7-4.9); Basophils % 0.5 % (0-1.3); Hematocrit 36.8 % (36.0-45.0); Lymphocytes % 33.4 % (15.3-44.8); MPV 7.5 fL (7.6-11.3); RBC Red Blood Cell Count 4.16 M/uL (3.86-4.86)
[2021-04-06 06:13] LABS: Potassium 3.6 mmol/L (3.5-5.1)
[2021-04-06] MEDS ORDERED: LOSARTAN POTASSIUM 50 MG TABLET PO ONE (07:00)
[2021-04-06] MEDS ORDERED: KCL 20 MEQ/100 mL IVPB 20 MEQ/100 ML BAG IV SCH (09:00)
[2021-04-06] MEDS ORDERED: LOSARTAN POTASSIUM 50 MG TABLET PO SCH (09:00)
[2021-04-06] MEDS: CEFTRIAXONE 1 GM/NS 50 ML 1 GM/50 ML BAG IV SCH (09:47)
[2021-04-06] MEDS: CALCIUM CARB 500MG/VIT D 200 IU TAB PO SCH (09:49)
[2021-04-06] MEDS: VITAMIN D 1000 UNIT TAB PO SCH (09:49)
[2021-04-06] MEDS: MAGNESIUM OXIDE 400 MG TAB PO SCH (09:49)
[2021-04-06] MEDS: OCUVITE (VIT A,C & E/LUTEIN/MINERAL) TABLET PO SCH (09:50)
[2021-04-06] MEDS: LOSARTAN POTASSIUM 50 MG TABLET PO SCH (09:50)
[2021-04-06] MEDS: MULTIVITAMIN TAB PO SCH (09:50)
[2021-04-06] MEDS: ENOXAPARIN 40 MG/0.4 ML SQ SCH (09:51)
[2021-04-06] MEDS: ACETAMINOPHEN 500 MG TAB PO PRN ×2 (10:12→21:11)
[2021-04-06] MEDS: AMLODIPINE 10 MG TAB PO SCH (14:37)
[2021-04-06] MEDS ORDERED: LABETALOL 20 MG/4ML SYRINGE IV PRN (17:40)
--- NOTE | 2021-04-06 17:41 | P.PN ---
Subjective Date of Service: 04/06/21 Chief Complaint: Nausea and vomiting Patient reports feeling better but has severe hypertension. She states that she did not tolerate IV hydralazine. She developed severe headache and nausea after a dose of hydralazine. Physical Examination - Vital Signs Temperature: 98.7 F Blood Pressure: 199/82 Pulse: 78 Respirations: 14 Pulse Ox (%): 100 - Physical Exam General: Alert, In no apparent distress, Oriented x3 HEENT: Mucous membr. moist/pink Neck: Supple, JVD not distended Respiratory: Clear to auscultation bilaterally, Normal air movement Cardiovascular: Regular rate/rhythm, Normal S1 S2 Gastrointestinal: Soft and benign, Non-distended Musculoskeletal: No swelling Integumentary: No rashes Neurological: Normal strength at 5/5 x4 extr, Cranial nerves 3-12 intact Assessment And Plan - Current Problems (Diagnosis) (1) Intractable nausea and vomiting Current Visit: Yes Status: Acute (2) Hypothyroidism Current Visit: Yes Status: Acute (3) Essential hypertension Current Visit: Yes Status: Acute (4) GERD (gastroesophageal reflux disease) Current Visit: Yes Status: Acute (5) Acute cystitis without hematuria Current Visit: Yes Status: Acute - Plan Nausea and vomiting resolved. Patient with severe hypertension. Continue supportive measures. Discontinue IV fluid. She is tolerating diet advancement. Urine culture: No growth. Continue IV Rocephin for UTI. Monitor and optimize electrolytes. Monitor renal function. Oral Protonix for GERD Added amlodipine to losartan for blood pressure control. Labetalol as needed for BP spikes.
--- NOTE | 2021-04-06 18:30 | EKG ---
Test Date: 2021-04-04 Test Time: 13:10:47 [place] Pumper: BALTAZAR MEASUREMENT RESULTS: Intervals: Rate: 73 MT: 142 QRSD: 96 QT: 398 QTc: 438 [place]: P: 59 MT: 142 QRS: -39 T: 32 INTERPRETIVE STATEMENTS: Normal sinus rhythm Left axis deviation Abnormal ECG Compared to ECG 02/27/2020 20:13:34 Left-axis deviation now present Left anterior fascicular block no longer present ST (T wave) deviation no longer present Electronically Signed On 04-06-21 18:24:11 TEACHER AIDE by Fly Ruiz
[2021-04-07] MEDS: LEVOTHYROXINE SOD 0.025 MG TAB PO SCH (05:06)
[2021-04-07] MEDS: PANTOPRAZOLE 40MG TABLET PO SCH (05:06)
[2021-04-07 06:28] LABS: Magnesium 1.9 mg/dL (1.8-2.4); Potassium 3.7 mmol/L (3.5-5.1)
[2021-04-07 06:38] LABS: Thyroid Stimulating Hormone 3.52 uIU/mL (0.360-3.740)
[2021-04-07 08:28] VITALS: BP 155/81; TEMP 98.8
[2021-04-07] MEDS: CEFTRIAXONE 1 GM/NS 50 ML 1 GM/50 ML BAG IV SCH (09:00)
[2021-04-07] MEDS: MAGNESIUM OXIDE 400 MG TAB PO SCH (09:00)
[2021-04-07] MEDS ORDERED: KCL 20 MEQ/100 mL IVPB 20 MEQ/100 ML BAG IV SCH (09:00)
[2021-04-07] MEDS: OCUVITE (VIT A,C & E/LUTEIN/MINERAL) TABLET PO SCH (09:26)
[2021-04-07] MEDS: VITAMIN D 1000 UNIT TAB PO SCH (09:26)
[2021-04-07] MEDS: AMLODIPINE 10 MG TAB PO SCH (09:26)
[2021-04-07] MEDS: LOSARTAN POTASSIUM 50 MG TABLET PO SCH (09:26)
[2021-04-07] MEDS: CALCIUM CARB 500MG/VIT D 200 IU TAB PO SCH (09:26)
[2021-04-07] MEDS: ENOXAPARIN 40 MG/0.4 ML SQ SCH (09:27)
[2021-04-07] MEDS: MULTIVITAMIN TAB PO SCH (09:28)
--- NOTE | 2021-04-07 17:04 | P.DS ---
Admission Date: 04/05/21 Discharge Date: 04/07/21 Disposition: ROUTINE DISCHARGE Discharge Condition: GOOD Reason for Admission: Nausea and vomiting Procedures: CXR (04/04): IMPRESSION: No acute cardiopulmonary disease. Problem list Intractable nausea and vomiting, after Covid vaccination booster Hypothyroidism Essential hypertension GERD Brief History of Present Illness: 85-year-old woman with a past medical history of hypothyroidism, status post thyroidectomy, hypertension and glaucoma presented to the emergency department with a complaint of nausea and vomiting that has been present since last night. She took her more than a booster dose yesterday and a few hours later developed the nausea and vomiting. Patient states that she has not been able to eat or drink as she vomits anything that goes into her mouth. She denies diarrhea. She reported abdominal discomfort mainly from retching. Blood work in the ED is unremarkable. Chest x-ray shows no acute disease. Patient with risk for dehydration and unable to tolerate anything p.o. she is hospitalized for further management. Hospital Course: And antiemetics, with gradual improvement of her symptoms. Her UA was lightly suggestive of UTI and she was empirically treated with antibiotics. She denied any urinary symptoms and urine culture was negative, her antibiotics were discontinued. Her discharge was delayed by day due to severe hypertension. Her home antihypertensive medication was continued, and she was started on 10 mg Norvasc with improvement of her blood pressure. Patient states she normally has normal blood pressure and was reluctant to take new medication. She did have consistent elevated blood pressures in the [id number] prior to starting Norvasc. This improved to [id number]. She was discharged with his prescription for Norvasc, instructed to check her blood pressure at home, to follow-up with her PCP in the next week. Vital Signs/Physical Exam: Temp Pulse Resp BP Pulse Ox 98.8 F 81 16 155/81 H 98 04/07/21 08:00 04/07/21 09:26 04/07/21 08:00 04/07/21 09:26 04/07/21 08:00 General: Alert, In no apparent distress, Oriented x3 HEENT: Mucous membr. moist/pink, Sclerae nonicteric Neck: Supple Respiratory: Clear to auscultation bilaterally, Normal air movement Cardiovascular: No edema, Regular rate/rhythm Gastrointestinal: Soft and benign, Non-distended, No tenderness Musculoskeletal: No erythema, No tenderness Integumentary: No significant lesion Neurological: Normal speech, Normal affect Laboratory Data at Discharge: WBC 5.20 K/uL (4.3-10.9) D 04/06/21 05:41 Hgb 12.4 g/dL (12.0-15.0) 04/06/21 05:41 Hct 36.8 % (36.0-45.0) D 04/06/21 05:41 Plt Count 259 K/uL (152-406) D 04/06/21 05:41 PT 11.3 SECONDS (9.5-12.5) 04/04/21 12:56 INR 0.98 04/04/21 12:56 Sodium 142 mmol/L (136-145) 04/07/21 05:58 Potassium 3.7 mmol/L (3.5-5.1) 04/07/21 05:58 BUN 8 mg/dL (7-18) 04/07/21 05:58 Creatinine 0.75 mg/dL (0.55-1.3) 04/07/21 05:58 Glucose 105 mg/dL (74-106) 04/07/21 05:58 Phosphorus 2.9 mg/dL (2.5-4.9) 04/05/21 05:17 Magnesium 1.9 mg/dL (1.8-2.4) 04/07/21 05:58 Total Bilirubin 0.5 mg/dL (0.2-1.0) 04/04/21 12:56 AST 18 U/L (15-37) 04/04/21 12:56 ALT 23 U/L (12-78) 04/04/21 12:56 Alkaline Phosphatase 100 U/L (45-117) 04/04/21 12:56 Lipase 38 U/L (73-393) L 04/04/21 12:56 Home Medications: Bimatoprost [Lumigan Opthalmic Drops*] 1 drops OPTH DAILY 12/24/16 Calcium Carbonate/Vitamin D3 [Calcium 500 + Vit D 400 Tablet] 1 each PO DAILY 12/24/16 Multivitamin [Multivitamins] 1 each PO DAILY 12/24/16 Cholecalciferol (Vitamin D3) [Vitamin D3] 1,000 unit PO DAILY 03/13/20 Magnesium Oxide [Magnesium] 400 mg PO DAILY 10/15/20 Vit A,C & E/Lutein/Minerals [Ocuvite Tablet] 1 tab PO DAILY 03/13/20 Ibuprofen [Advil] 200 mg PO PRN PRN 10/29/20 Levothyroxine Sodium [Levothyroxine] 25 mcg PO DAILY 10/29/20 Losartan Potassium 50 mg PO DAILY 10/29/20 Amlodipine [Norvasc*] 10 mg PO DAILY 30 Days #30 tab 04/07/21 New Medications: Amlodipine [Norvasc*] 10 mg PO DAILY 30 Days #30 tab Diet: Regular Activity: Ad pretty Followup: JOSE GARCIA [Primary Care Provider] - Time spent managing pt's care (in minutes): 45
--- OUTSIDE RECORDS SUMMARY | 2021-04-11 14:24 | XMS REPORT | Continuity of Care Document ---
:1935 Author Organization [facility] t Address [address] [place] [address] Care Team Providers Name Role Phone Devon Gore RN Attending Clinician Unavailable Singer GILMORE Attending Clinician Erlinda GAYLE Attending Clinician Salvador GAYLE Attending Clinician Attending Clinician Unavailable Erlinda GAYLE Admitting Clinician Payers Payer Name Policy Type Policy Number Effective Date Expiration Date S ource Problems Condition Condition Condition Status Onset Resolution Last Treating Co mments Source Name Details Category Date Date Treatment Clinician Date Hypothyroi Hypothyroi Disease Active 2019-05 U nivers dism dism 2-08 ity of 00:00: [place] [facility] Preop Preop Disease Active 2019-05 Univers cardiovasc cardiovasc 2-08 it y of ular exam ular exam 00:00: [facility] Essential Essential Disease Active 2019-05 Uni vers hypertensi hypertensi 2-08 it y of on on 00:: [place] [facility] Closed Closed Disease Active 2019-05 Univers left hip left hip 2-07 ity of fracture fracture 00:00: [place] [facility] Allergies, Adverse Reactions, Alerts Allergy Allergy Status Severity Reaction(s) Onset Inactive Treating Comm ents Source Name Type Date Date Clinician NO KNOWN Drug Active Univers ALLERGIE Class ity of S [facility] [place] Social History Social Habit Start Date Stop Date Quantity Comments Source Sex Assigned At [facility] y of [facility] [place] Exposure to Not sure [facility] SARS-CoV-2 [facility] (event) [facility] Tobacco use and 2020-05-08 2020-05-08 Never used Universit y of exposure 00:00:00 00:00:00 [facility] [place] Alcohol intake 2020-05-08 2020-05-08 Ex-drinker [facility] 00:00:00 00:00:00 (finding) [facility] [place] Smoking Status Start Date Stop Date Source Former smoker 2020-05-08 00:00:00 2020-05-08 00:00:00 [facility] Medications Ordered Filled Start Stop Current Ordering Indication Dosage Frequency Signature Comments Components Source Medication Medication Date Date Medication? Clinician (SIG) Name Name Levothyroxi 2019-05 Yes 125ug Take 125 U nivers ne 125 mcg 2-10 mcg by ity of capsule 21:38: mouth [place] 57 daily. [facility] losartan 25 2019-05 Yes 25mg Take 25 mg Univers mg tablet 2-10 by mouth ity of 21:38: daily. [address] Levothyroxi 2019-05 Yes 125ug Take 125 U nivers ne 125 mcg 2-10 mcg by ity of capsule 21:38: mouth [place] 57 daily. [facility] losartan 25 2019-05 Yes 25mg Take 25 mg Univers mg tablet 2-10 by mouth ity of 21:38: daily. [address] gabapentin 2019-05 Yes 300mg 300 mg, Uni vers (NEURONTIN) 2-10 Oral, TID, it y of capsule 300 17:30: First dose [place] mg 00 on [facility] 05/08/20 Branch at 1130, Until Discontinu ed, Routine cyclobenzap 2019-05 Yes 5mg 5 mg, Unive rs rine 2-10 Oral, BID, ity of (FLEXERIL) 17:30: First dose [place] tablet 5 mg 00 on [facility] 05/08/20 Branch at 1130, Until Discontinu ed, Routine HYDROcodone 2019-05 Yes 1{tbl} 1 tablet, Univers -acetaminop 2-10 Oral, ity of hen (NORCO 15:49: Q4HPRN, [place] 5) 5-325 mg 45 Starting Medi cherelle tablet 1 [facility] Branch tablet 05/08/20 at 0949, Until Discontinu ed, Routine, Pain (scale 7-10) morpHINE 2019-05 2020- No 2mg 2 mg, Slow Un dolores injection 2 2-10 12-10 IV Push, ity of mg 08:15: 15:49 Q4HPRN, [place] 40 :55 Starting Medical [place] Branch 05/08/20 at 0215, Until Mavis 05/08/20 at 0949, Routine, Pain (scale 7-10) enoxaparin 2019-05 2020- No [id number] 40mg inject 0.4 Univers 40 mg/0.4 2-10 12-31 mL under ity o f mL 00:00: 05:59 the skin [place] injection 00 :00 at bedtime [facility] for 20 Branch days. enoxaparin 2019-2019- No [id number] 40mg inject 0.4 Univers 40 mg/0.4 2-10 12-31 mL under ity o f mL 00:00: 05:59 the skin [place] injection 00 :00 at bedtime [facility] for 20 Branch days. cyclobenzap 2019-05- No [id number] 5mg Take 1 Univers rine 5 mg 2-10 12-18 tablet by ity of tablet 00:00: 05:59 mouth 2 [place] 00 :00 (two) Medical times Branch daily for 7 days. gabapentin 2019-2019- No [id number] 300mg Take 1 Univers 300 mg 2-10 12-18 capsule by ity of capsule 00:00: 05:59 mouth 3 [place] 00 :00 (three) Medical times Branch daily for 7 days. docusate 2019- 2020- No [id number] 100mg Take 1 Univers 100 mg 2-10 12-18 capsule by ity of capsule 00:00: 05:59 mouth 2 [place] 00 :00 (two) Medical times Branch daily for 7 days. traMADoL 50 2019- 2020- No [id number] 50mg Take 1 Uni vers mg tablet 2-10 12-18 tablet by ity of 00:00: 05:59 mouth [place] 00 :00 every 6 Medical (six) Branch hours as needed for Pain (scale 4-6) for up to 7 days. Indication s: acute pain cyclobenzap 2019-2019- No [id number] 5mg Take 1 Univers rine 5 mg 2-10 12-18 tablet by ity of tablet 00:00: 05:59 mouth 2 [place] 00 :00 (two) Medical times Branch daily for 7 days. gabapentin 2019-05 2020- No [id number] 300mg Take 1 Univers 300 mg 2-10 12-18 capsule by ity of capsule 00:00: 05:59 mouth 3 [place] 00 :00 (three) Medical times Branch daily for 7 days. docusate 2019-05 2020- No [id number] 100mg Take 1 Univers 100 mg 2-10 12-18 capsule by ity of capsule 00:00: 05:59 mouth 2 [place] 00 :00 (two) Medical times Branch daily for 7 days. traMADoL 50 2019-05- No [id number] 50mg Take 1 Uni vers mg tablet 2- 12-18 tablet by ity of 00:00: 05:59 mouth [place] 00 :00 every 6 Medical (six) Branch hours as needed for Pain (scale 4-6) for up to 7 days. Indication s: acute pain sennosides 2019-05 2020- No [id number] 8.6mg Take 1 Univers 8.6 mg 2-10 12-16 tablet by ity of tablet 00:00: 05:59 mouth 2 [place] 00 :00 (two) Medical times Branch daily for 5 days. sennosides 2019-05 2020- No [id number] 8.6mg Take 1 Univers 8.6 mg 2-10 12-16 tablet by ity of tablet 00:00: 05:59 mouth 2 [place] 00 :00 (two) Medical times Branch daily for 5 days. ceFAZolin 2019-05 Yes 1000mg 1,000 mg, U nivers (ANCEF) 2-09 IV ity of 1,000 mg in 19:45: Piggyback, [place] NaCl 0.9% 00 Q8H ABX, Medica l (NS) 50 mL First dose Bra nch MINI-BAG (after last modificati on) on Tue05/07/20 at 1345, Until Discontinu ed, 50 mL
Reas on for Anti-Infec tive: Surgical Prophylaxi s
Surgi cherelle Prophylaxi s: Orthopaedi c
Durat ion of therapy: within 24 hours of surgery Levothyroxi 2019-05 Yes 125ug Take 125 U nivers ne 125 mcg 2-09 mcg by ity of capsule 15:50: mouth [place] [address] daily. Medical Branch losartan 25 2019-05 Yes 25mg Take 25 mg Univers mg tablet 07-08 by mouth ity of 15:50: daily. [address] dexamethaso 2019-05 2020- No ONCE INTRA Univers ne 07-08 PROCEDURE, ity of (DECADRON 14:36: 14:52 Starting [place] PHOSPHATE) 00 :46 Tue Medical injection 05/07/20 at [facility] 0836, Until Tue05/07/20 at 0852, Routine, Intra-op morpHINE 2019-05 2020- No ONCE INTRA Un dolores injection 07-08 PROCEDURE, ity of 14:36: 14:52 Starting [place] 00 :46 [facility] Medical 05/07/20 at Branch 0836, Until Tue05/07/20 at 0852, Routine, Intra-op sugammadex 2019-05 2020- No ONCE INTRA Univers (BRIDION) 07-08 PROCEDURE, ity of injection 14:22: 14:52 Starting [place] 00 :46 [facility] 05/07/20 at Branch 0822, Until Tue05/07/20 at 0852, Routine, Intra-op acetaminoph 2019-05 2020- No Administer Univers en ADULT 07-08 over 15 ity of (OFIRMEV) 14:21: 14:52 Minutes, [place] as injection 00 :46 ONCE INTRA Medi cherelle PROCEDURE, Branch Starting [facility] 05/07/20 at 0821, Until Tue05/07/20 at 0852, Routine, Intra-op tranexamic 2019-05 2020- No 10mg/kg at 177.5 Univers acid 07-08 /h mL/hr, 10 ity of (CYKLOKAPRO 14:15: 13:45 mg/kg/hr [place] N) 1,000 mg 00 :00 ?71 kg Medica l in NaCl (177.5 Branch 0.9% (NS) mL/hr), IV 250 mL Piggyback, infusion ONCE, 1 dose, [facility] 05/07/20 at 0815, JOSSE, Intra-op ceFAZolin 2019-05 2020- No ONCE INTRA U nivers (ANCEF) 07-08 PROCEDURE, ity o f injection 13:40: 14:52 Starting [place] 00 :46 [facility] 05/07/20 at Branch 0740, Until Tue05/07/20 at 0852, JOSSE, Intra-op rocuronium 2019-05 2020- No IV Push, Un dolores (ZEMURON) 07-08 ONCE INTRA ity of injection 13:38: 14:52 PROCEDURE, [place] 00 :46 Starting Medical Wed Branch 05/07/20 at 0738, Until Tue05/07/20 at 0852, Routine, Intra-op succinylcho 2019-05 2020- No ONCE INTRA Univers line 07-08 PROCEDURE, ity of (QUELICIN) 13:33: 14:52 [place] injection 00 :46 [facility] 05/07/20 at Branch 0733, Until Tue05/07/20 at 0852, Routine, Intra-op ondansetron 2019-05 2020- No ONCE INTRA Univers (ZOFRAN 07-08 PROCEDURE, ity o f (PF)) 13:31: 14:52 Starting [place] injection 00 :46 [facility] 05/07/20 at Branch 0731, Until Tue05/07/20 at 0852, Routine, Intra-op propofoL IV 2019-05 2020- No ONCE INTRA Univers infusion 07-08 PROCEDURE, ity of 13:27: 14:52 Starting [place] 00 :46 [facility] 05/07/20 at Branch 0727, Until Tue05/07/20 at 0852, Routine, Intra-op FENTanyl PF 2019-05 2020- No ONCE INTRA Univers (SUBLIMAZE 07-08 PROCEDURE, it y of (PF)) 13:27: 14:52 Starting [place] injection 00 :46 [facility] 05/07/20 at Branch 0727, Until Tue05/07/20 at 0852, Routine, Intra-op lidocaine 2019-05 2020- No ONCE INTRA U nivers 1% 07-08 PROCEDURE, ity of (XYLOCAINE) 13:27: 14:52 Starting [place] 100 mg/10 00 :46 [facility] mL (1 %) 05/07/20 at [facility] h injection 0727, Until Tue05/07/20 at 0852, Routine, Intra-op lactated 2019-05 2020- No CONTINUOUS Un dolores ringers IV 07-08 PRN, ity of infusion 13:20: 14:52 Starting [place] 00 :46 Wed Medical 05/07/20 at Branch 0720, Until [facility] 05/07/20 at 0852, Routine, Intra-op pantoprazol 2019-05 2020- No 40mg 40 mg, IV Univers e 07-08 1209 Piggyback, ity of (PROTONIX) 12:00: 11:15 ONCE, 1 [place] 40 mg in 00 :00 dose, [facility] Medica l NaCl 0.9% 05/07/20 at [facility] (NS) 100 mL 0600, 100 MINI-BAG mL enoxaparin 2019-05 Yes 40mg 40 mg, Unive rs (LOVENOX) 07-08 Subcutaneo ity of injection 03:00: us, QHS, [place] 40 mg 00 First dose Medical (after Branch last modificati on) on Tue05/06/20 at 2100, Until Discontinu ed, Routine morpHINE 2019-05- No 2mg 2 mg, Slow Un dolores injection 2 07-0810 IV Push, ity of mg 01:54: 01:53 Q4HPRN, [place] 07 :07 Starting Medical [facility] 05/06/20 at 1954, Until [facility] 05/07/20 at 1953, Routine, Pain (scale 7-10) pantoprazol 2019-05 Yes 40mg 40 mg, IV U nivers e - Piggyback, ity of (PROTONIX) 17:15: Q24H, [place] 40 mg in 00 First dose Medic al NaCl 0.9% on [facility] Branch (NS) 100 mL 05/06/20 at MINI-BAG 1115, Until Discontinu ed, 100 mL losartan 2019-05 Yes 50mg 50 mg, Univers (COZAAR) 2-08 Oral, ity of tablet 50 15:00: DAILY, [place] mg 00 First dose Medical (after [place] last modificati on) on [facility] 05/06/20 at 0900, Until Discontinu ed, Routine levothyroxi 2019-05 Yes 125ug 125 mcg, U nivers ne 2-08 Oral, ity of (SYNTHROID) 12:00: QAM-0600, [place] tablet 125 00 First dose Med ical mcg on [facility] 05/06/20 at 0600, Until Discontinu ed sennosides 2019-05 Yes 8.6mg 8.6 mg, Uni vers (SENOKOT) 2-08 Oral, BID, ity of tablet 8.6 02:00: First dose [place] mg 00 on [facility] 05/05/20 at Branch 2000, Until Discontinu ed, Routine hydralAZINE 2019-05 Yes 10mg 10 mg, Univ ers (APRESOLINE 2-08 Slow IV ity o f ) injection 01:29: Push, [place] 10 mg 06 Q6HPRN, [facility] Starting [facility] 05/05/20 at 1929, Until Discontinu ed, JOSSE, DBP=>100; SBP=>160, DBP=>100; SBP=>180<b r>Indicati on: Hypertensi ve Emergency morpHINE 2019-05 2020- No 4mg 4 mg, Slow Un dolores injection 4 07-0707 IV Push, ity of mg 00:15: 23:04 ONCE, 1 [place] 00 :00 dose, [facility] 05/05/20 at Branch 1815, STAT ondansetron 2019-05 2020- No 4mg 4 mg, Slow Univers (ZOFRAN 07-07 IV Push, ity of (PF)) 00:15: 23:04 ONCE, 1 [place] injection 4 00 :00 dose, [facility] Med ical mg 05/05/20 at Branch 1815, JOSSE morpHINE 2019-05 2020- No 2mg 2 mg, Slow Un dolores injection 2 07-0709 IV Push, ity of mg 00:01: 00:00 Q4HPRN, [place] 41 :41 Starting [facility] 05/05/20 at 1801, Until Tue05/06/20 at 1800, Routine, Pain (scale 7-10) HYDROcodone 2019-05 2020- No 1{tbl} 1 tablet, Univers -acetaminop 2 12-10 Oral, ity of hen (NORCO 00:01: 00:00 Q6HPRN, [place] 5) 5-325 mg 37 :37 Starting Medi cherelle tablet 1 [facility] tablet 05/05/20 at 1801, Until Tue05/07/20 at 1800, Routine, Pain (scale 4-6) acetaminoph 2019-05 Yes 650mg 650 mg, Un dolores en 208 Oral, ity of (TYLENOL) 00:01: Q6HPRN, [place] tablet 650 31 Starting Medic al mg [facility] 05/05/20 at 1801, Until Discontinu ed, Routine, Pain (scale 1-3) Lumigan Lumigan Yes Chirag not [facility] [...] Potassium-H [place] defined [facility] Cyclobenzap Cyclobenzap Yes [facility]ir[facility] not [facility] rine HCl rine HCl [facility] defined [facility] Pepcid Pepcid Yes [facility]ir[facility] not [facility] defined [facility] Vital Signs Vital Name Observation Time Observation Value Comments Source Systolic blood 2020-05-08 21:08:00 129 mm[Hg] Univer sity of pressure [facility] [place] Diastolic blood 2020-05-08 21:08:00 62 mm[Hg] [facility] Heart rate 2020-05-08 21:08:00 95 /min [facility] Body temperature 2020-05-08 21:08:00 37.22 Junie [facility] Respiratory rate 2020-05-08 21:08:00 18 /min [facility] Oxygen saturation in 2020-05-08 21:08:00 95 /min [facility] blood by [facility] Pulse oximetry Branch Body weight 2020-05-08 09:02:00 72.984 kg [facility] BMI 2020-05-08 09:02:00 26.37 kg/m2 [facility] Body height 2020-05-07 19:00:00 166.4 cm per pt [facility] Systolic blood 2020-05-08 21:08:00 129 mm[Hg[facility] 2020-05-08 21:08:00 62 mm[Hg] [facility] Heart rate 2020-05-08 21:08:00 95 /min [facility] Body temperature 2020-05-08 21:08:00 37.22 Junie [facility] Respiratory rate 2020-05-08 21:08:00 18 /min [facility] Oxygen saturation in 2020-05-08 21:08:00 95 /min [facility] Arterial blood by [facility] Pulse oximetry [place] Body weight 2020-05-08 09:02:00 72.984 kg [facility] BMI 2020-05-08 09:02:00 26.37 kg/m2 [facility] Body height 2020-05-07 19:00:00 166.4 cm per pt [facility] Respiratory rate 2020-05-07 14:30:00 37 /min [facility] Respiratory rate 2020-05-07 14:30:00 37 /min [facility] Procedures Procedure Date / Time Performing Clinician Source Performed CBC WITH DIFF 2020-05-08 12:53:00 Matthew Coffey [facility] COMP. METABOLIC PANEL 2020-05-08 12:53:00 Matthew Coffey [facility] ([id number] FL TIME OR 2020-05-07 14:59:53 Aliya, Justo [facility] (NON-REPORTABLE) [facility] INTUBATION 2020-05-07 14:08:58 Jenae Bass [facility] FEMUR INTRAMEDULLARY 2020-05-07 13:04:00 Justo Pisano [facility] NAILING [facility] HB ABO GROUPING 2020-05-06 16:30:00 Matthew Coffey [facility] HB ECG ROUTINE & RHYTHM 2020-05-06 11:06:09 Ashley Ryan [facility] CBC WITH DIFF 2020-05-06 09:39:00 Matthew Coffey [facility] PROTHROMBIN TIME / INR 2020-05-06 09:39:00 Matthew Coffey [facility] ACTIVATED PARTIAL 2020-05-06 09:39:00 Matthew Coffey [facility] THRMPLAS CONSTANCE [facility] N-TERMINAL PRO-BNP 2020-05-06 09:39:00 Murtaza tammi [facility] MAGNESIUM 2020-05-06 09:39:00 Murtaza [facility] BASIC METABOLIC PANEL 2020-05-06 09:39:00 Matthew Coffey [facility] (NA, K, CL, CO2, GLUCOSE, Medica l Branch BUN, CREATININE, CA) XR CHEST 1 VW 2020-05-06 06:13:29 Murtaza [facility] ABORH CONFIRMATION 2020-05-05 23:38:00 Matthew Coffey [facility] COVID-19 (ID NOW RAPID 2020-05-05 23:21:00 Singer [facility] TESTING) Medical Branch LAB ONLY COVID 2020-05-05 23:21:00 Singer [facility] INTERPRETATION [facility] CT HEAD WO CONTRAST 2020-05-05 23:11:21 Jose Cornell [facility] XR HIPS 3 VW LEFT 2020-05-05 23:00:[address] [facility] HB ABO GROUPING 2020-05-05 22:57:00 Singer [facility] GLYCOSYLATED HEMOGLOBIN 2020-05-05 22:50:00 Connor Ashley [facility] (A1C) [facility] THYROID STIMULATING 2020-05-05 22:50:00 Connor Ashley Jessica [facility] HORMONE Medical Branch COMP. METABOLIC PANEL 2020-05-05 22:50:00 Jose Cornell [facility] ([id number]) Medical Branch CBC WITH DIFF 2020-05-05 22:50:00 Singer [facility] NOTICE OF PRIVACY 2020-05-05 22:28:37 Doctor Unassigned, [facility] PRACTICES [place] [facility] CONSENT/REFUSAL FOR 2020-05-05 22:28:21 Doctor Unassigned, [facility] DIAGNOSIS AND TREATMENT [place] [facility] Encounters Start End Encounter Admission Attending Care Care Encounter Source Date/Time Date/Time Type Type Clinicians Facility Department ID 2021-03-20 2021-03-20 Outpatient [facility] [id number] [facility] 2021-02-18 2021-02-18 Outpatient [facility] [id number]00 kes - [facility] l Outpati ent Clinics 2020-05-09 2020-05-09 Transition Joycelyn Gore [id number] 00:00:00 00:00:00 of Care Trung Finchy [id number] [place] [id number] [facility] 2020-05-09 2020-05-09 Transition Joycelyn Gore [id number] [facility] 00:00:00 00:00:00 of Care Trung Finchy [id number] ity of [place] [id number] [place] [id number] [facility] 403 Branch 2020-05-05 2020-05-08 [facility] [id number] 16:29:00 15:25:00 Encounter Matthew Coffey [id number] [place] [id number] [place] [id number] 081 2020-05-05 2020-05-08 [facility] [id number] [facility] 16:29:00 15:25:00 Encounter Matthew Coffey [id number] ity of [place] [id number] [place] [id number] [facility] 081 Branch 2020-05-07 2020-05-07 Anesthesia [facility] [id number] 07:20:00 08:49:00 Graciela Metzger [id number] [place] [id number] Surgical [id number] [place] [address] 2020-05-07 2020-05-07 Anesthesia [facility] [id number] Univers 07:20:00 08:49:00 Graciela Metzger [id number] i belem Riddle [id number] Judy ashraf Surgical [id number] [place] [address] Branch 2020-05-05 2020-05-05 Emergency X JERMAIN CORNELL [id number] Univers 16:29:00 16:29:00 JOSE barnessandeep [facility] 2019-06-14 2019-06-14 [facility] [id number] 09:00:00 09:00:00 t [facility] ent Clinics Results Test Description Test Test Results Result Source Time Comments Comments LAB ONLY COVID COVID DMT [facility] 10 InterpretationInterp [facility] 15:53:00 retation/Recommendat Bran ch ions: Molecular NAAT Tests for Active Infection with the SARS-CoV-2 Virus: This result indicates that the patient has tested negative on one occasion for the SARS-CoV-2 virus that causes COVID-19 illness. This most likely indicates that the patient does not have an active infection with the SARS-CoV-2 virus. However, infection is not completely ruled out as the false negative rate for molecular NAAT testing using a nasopharyngeal sample can be up to 30%, mostly dependent on the timing of sample collection in relation to illness onset and any deficiencies in sampling techniques. If the patient continues to have persistent or worsening symptoms concerning for COVID-19 illness, a repeat NAAT test (PCR, Rapid ID Now, etc.) should be performed, at which time the SARS-CoV-2 virus - if present - may have reached a detectable viral load (usually peaking by the end of the first week of symptoms). Tests for IgM and/or IgG Antibodies to SARS-CoV-2 Virus: Testing for IgM and IgG antibodies 1-3 weeks after illness onset will indicate whether the patient has produced antibodies to the virus. At this time, it is not known if the production of antibodies - specifically IgG antibodies - indicates whether the patient is immune to future infections with the SARS-CoV-2 virus. ? ? Interpretation Result Comments: These interpretation comments are based upon aggregate COVID-19 test results pooled from [facility]. They apply to the following tests offered at [facility] and assume the acceptable specimen type(s) were used: A. Tests for the Identification of SARS-CoV-2 RNA (Molecular NAAT Tests): ?- SARS-CoV-2 PCR assays including [place] Aptima, [place] Fusion, [place] RealTime, and [employer] Xpert Xpress. ?- SARS-CoV-2 Rapid ID NOW by the ID NOW assay. ? B. Tests for the Identification of SARS-CoV-2 Antibodies: ?- Chemiluminescent immunoassays including Access SARS-CoV-2 IgM (DXI 600), AtavistS Hpbj-MXLN-NvX-2 IgG (Vitros 5600 and Vitros 3600), and [employer]rows SARS-CoV-2 IgG (FURNACE FEEDER I System). These interpretations are autopopulated into [facility] based on computerized algorithms matching an interpretation code to the patient's set of test results, and a clinical pathologist evaluates the comments for accuracy. However, these comments do not consider testing a patient may have had outside of the [facility] system. If results for COVID-19 infection continue to be negative in the context of a suspected viral respiratory illness, it is possible the patient may have an infection with another respiratory virus. Influenza testing and a respiratory pathogen panel if clinically indicated may be beneficial in this setting. If there continues to be a high degree of clinical suspicion for COVID-19 illness despite multiple negative tests on nasopharyngeal specimens, then it may be necessary to test the patient for the SARS-CoV-2 virus using lower respiratory tract samples (such as sputum, bronchoalveolar lavage fluid (BAL), tracheal aspirate, etc.). ? [facility] LABORATORY SERVICESCOVID [id number]-7 Rapid ID NOW (no units) ? ? Date ? Value ? 05/05/2020 ? Not Detected ? [facility] COMP. METABOLIC PANEL (60262) 2020-05-08 15:02:00 Test Item Value Reference Range Interpretation Comme nts NA (test code = 2001494237) 132 mmol/L 135-145 L K (test code = 3137207936) 4.1 mmol/L 3.5-5 CL (test code = 9287986242) 104 mmol/L 98-108 CO2 TOTAL (test code = 9196663623) 24 mmol/L 23-31 AGAP (test code = 2633553809) 2-16 BUN (test code = 0451021194) 14 mg/dL 7-23 GLUCOSE (test code = 8731467854) 98 mg/dL 70-110 CREATININE (test code = 0.64 mg/dL 0.5-1.04 [id number]) TOTAL BILI (test code = 0.6 mg/dL 0.1-1.1 3629038551) CALCIUM (test code = 5362856729) 7.4 mg/dL 8.6-10.6 L T PROTEIN (test code = 3955323032) 5.1 g/dL 6.3-8.2 L ALBUMIN (test code = 8311992187) 2.8 g/dL 3.5-5 L ALK PHOS (test code = 2485715270) 88 U/L 34-122 ALTv (test code = 1742-6) 50 U/L 5-35 H AST(SGOT) (test code = 7323392127) 34 U/L 13-40 eGFR Calculation (Non- mL/min/1.73m2 Salvadorean) (test code = 0928930758) eGFR Calculation ( mL/min/1.73m2 Salvadorean) (test code = 9063793296) JUDY (test code = JUDY) Association of Glomerular Filtration Rate (GFR) and Staging of Kidney Disease* + +-------- + ------+| GFR (mL/min/1.73 m2) ?| With Kidney Damage ?| ?Without Kidney Damage+ +-- + +| ?>90 ?| ?Stage one ?| ? Normal ?+ +------- + -------+| ?60-89 ?| ?Stage two ?| ? Decreased GFR ? + +-------- + ------+| ?30-59 ?| ?Stage three ?| ? Stage three ? + +-------- + ------+| ?15-29 ?| ?Stage four ? | ? Stage four ?+ +------- + -------+| ?<15 (or dialysis) ? ?| ?Stage five ? | ? Stage five ?+ +------- + -------+ *Each stage assumes the associated GFR level has been in effect for at least three months. ?Stages 1 to 5, with or without kidney disease, indicate chronic kidney disease. Notes: Determination of stages one and two (with eGFR >59mL/min/1.73 m2) requires estimation of kidney damage for at least three months as defined by structural or functional abnormalities of the kidney, manifested by either:Pathological abnormalities or Markers of kidney damage (including abnormalities in the composition of the blood or urine or abnormalities in imaging tests). Lab Interpretation (test code = Abnormal 26414-5) [facility] WITH [id number] 14:00:00 Test Item Value Reference Range Interpretation Comments WBC (test code = See_Comment [Automated 1390-2) message] The sy stem which generated this result transmitted reference range : 4.30 - 11.10 10*3/?L. The reference range was not used to interpret this result as normal/abnormal . RBC (test code = See_Comment L [Automated 989-8) message] The sy stem which generated this result transmitted reference range : 3.93 - 5.25 10*6/?L. The reference range was not used to interpret this result as normal/abnormal . HGB (test code = 9.2 g/dL 11.6-15 L 718-7) HCT (test code = 27.3 % 35.7-45.2 L 4544-3) MCV (test code = 88.6 fL 80.6-95.5 787-2) MCH (test code = 29.9 pg 25.9-32.8 785-6) MCHC (test code = 33.7 g/dL 31.6-35.1 786-4) RDW-SD (test code = 49.0 fL 39-49.9 47031-6) RDW-CV (test code = 15.4 % 12-15.5 788-0) PLT (test code = See_Comment [Automated 777-3) message] The sy stem which generated this result transmitted reference range : 166 - 358 10*3/ ?L. The reference r obi was not used to interpret this result as normal/abnormal . MPV (test code = 9.4 fL 9.5-12.9 L 80881-3) NRBC/100 WBC (test See_Comment [Automat ed code = 8202313596) message] The system which generated this result transmitted reference range : 0.0 - 10.0 /100 WBCs. The refer ence range was not u sed to interpret th is result as normal/abnormal . NRBC x10^3 (test code <0.01 See_Comment [Auto mated = 8711245443) message] The s ystem which generated this result transmitted reference range : 10*3/?L. The reference range was not used to interpret this result as normal/abnormal . GRAN MAT (NEUT) % 83.1 % (test code = 770-8) IMM GRAN % (test code 0.70 % = 7568122334) LYMPH % (test code = 8.5 % 736-9) MONO % (test code = 7.3 % 5905-5) EOS % (test code = 0.3 % 713-8) BASO % (test code = 0.1 % 706-2) GRAN MAT x10^3(ANC) 5.53 10*3/uL 1.88-7.09 (test code = 1021587953) IMM GRAN x10^3 (test 0.05 10*3/uL 0-0.06 code = 1770126102) LYMPH x10^3 (test code 0.57 10*3/uL 1.32-3.29 L = 731-0) MONO x10^3 (test code 0.49 10*3/uL 0.33-0.92 = 742-7) EOS x10^3 (test code = <0.03 0.03-0.39 L 711-2) BASO x10^3 (test code <0.03 0.01-0.07 = 704-7) Lab Interpretation Abnormal (test code = 43191-8) [facility] CenterFL [facility] (NON-REPORTABLE)2020-05-07 15:01:05 These images do not require a Radiology diagnostic report.[facility] CenterIntubation2020-12-09 14:08:58HoJenae Mario CRNA ? ? 05/07/2020 ?8:09 AMIntubationDate/Time: 05/07/2020 7:34 AMUrgency: elective Airway not difficult General Information and Staff Patient location during procedure: ORResident/SANITATION SUPERINTENDENT: Jenae Bass CRNAPerformed: resident/SANITATION SUPERINTENDENT Indications and Patient ConditionIndications for airway management: anesthesiaSpontaneous Ventilation: absentSedation level: deepPreoxygenated:yesPatient position: sniffingMILS maintained throughoutMask difficulty assessment: 1 - vent by mask F inal Airway DetailsFinal airway type: endotracheal airway Successful airway: ETTCuffed: yes Successful intubation technique: direct laryngoscopyFacilitating devices/methods: cricoid pressureEndotracheal tube insertion site: oralBlade: MillerBlade size: #2ETT size (mm): 7.0Cormack-Lehane Classification: grade I - full view of glottisPlacement verified by: chest auscultation and capnometry Cuff volume(mL): 10Measured from: lipsETT to lips (cm): 19Number of attempts at approach: 1Ventilation between attempts: noneNumber of other approaches attempted: 0 Additional CommentsRSI with head elevated, + vocal cords visualized, atraumatic intubation, teeth and lips per preop assessmentUnPeterson Regional Medical CenterType and Screen - ONCE [id number] 17:17:31 Test Item Value Reference Range Interpretation Comments ABO & RH (test code O Negative Performe d at [facility] = 20) Laboratory Serv [facility] Blood [facility] [place], [place] [id number] Free: [phone] A No. [id number] IAT (test code = Negative Performed a t [facility] 1185) Laboratory Serv [facility] [place], [place] [address]Toll Free: [phone] A No. [id number] [facility] CenterXR CHEST 1 [id number] 14:10:53HISTORY: Fall, dyspnea. TECHNIQUE: Portable AP supine view of the chest is obtained. No prior cheststudy available for comparison. FINDINGS: Minimal upper lobe predominant obstructive lung diseasesuspected. No acute pneumonia. No pneumothorax or pleural effusion orpulmonary congestion detected. Cardiac size is within normal limits. CONCLUSIONS: No signs of acute cardiopulmonary disease.[facility], Radiant Results Inft User - 05/06/2020 8:11 AM CSTHISTORY: Fall, dyspnea.TECHNIQUE: Portable AP supine viewof the chest is obtained. No prior cheststudy available for comparison.FINDINGS: Minimal upper lobe predominant obstructive lung diseasesuspected. No acute pneumonia. No pneumothorax or pleural effusion orpulmonary congestion detected. Cardiac size is within normal limits. CONCLUSIONS: No signs of acute cardiopulmonary disease.[facility] CenterXR HIPS 3 VW [id number] 13:42:55 Intertrochanteric femur fracture. Preliminary Report Dictated by Resident: Leni Olguin MD., have reviewed this study and agree with the abovereport.EXAM: XR HIPS 3 VW LEFT HISTORY: fall, left hip fx COMPARISON: None. FINDINGS: Radiographs of the left hip demonstrate a comminuted intertrochantericfemur fracture ?with mild impaction and varus angulation. The fracturelines involve the greater and lesser trochanters. The hip joint spaces andalignment are normal. Mild soft tissue fullness around the joint capsule isnoted. [facility], Radiant Results Inft User - 05/06/2020 7:44 AM CSTEXAM: XR HIPS 3 VW LEFTHISTORY: fall, left hip fx COMPARISON: None.FINDINGS: Radiographs of the left hip demonstrate a comminuted intertrochantericfemur fracture with mild impaction and varus angulation. The fracturelines involve the greater and lesser trochanters. The hip joint spaces andalignment are normal. Mild soft tissue fullness around the joint capsule isnoted.IMPRESSIONIntertrochanteric femur fracture.Preliminary Report Dictated by Resident: Leni Underwood MD., have reviewed this study and agree with the abovereport.[facility] CenterN-TERMINAL [id number] 10:28:00 Test Item Value Reference Range Interpretation Comments NT-proBNP (test code 236 pg/mL See_Comment [Autom ated = 0407823103) message] The system which generated this result transmitted reference range : <=450. The reference range was not used to interpret this result as normal/abnormal . JUDY (test code = JUDY) Biotin has been reported to cause a negative bias, interpret results relative to patient's use of biotin. Lab Interpretation Normal (test code = 61893-9) [facility] CenterMAGNESIUM2020-12-08 10:21:00 Test Item Value Reference Range Interpretation Comments MAGNESIUM (test code = 8435760275) 2.1 mg/dL 1.7-2.4 Lab Interpretation (test code = Normal 37963-7) [facility] Metabolic Panel (NA, K, CL, CO2, GLUCOSE, BUN, CREATININE, CA)2020-05-06 10:20:00 Test Item Value Reference Range Interpretation Comments NA (test code = 135 mmol/L 135-145 2725488277) K (test code = 4.1 mmol/L 3.5-5 9966670136) CL (test code = 103 mmol/L 98-108 9753548793) CO2 TOTAL (test code = 26 mmol/L 23-31 5864721948) AGAP (test code = 2-16 5726529998) BUN (test code = 17 mg/dL 7-23 8718340952) GLUCOSE (test code = 147 mg/dL 70-110 H 2292210713) CREATININE (test code = 0.73 mg/dL 0.5-1.04 4851073098) CALCIUM (test code = 8.3 mg/dL 8.6-10.6 L 5749893916) eGFR Calculation mL/min/1.73m2 (Non-) (test code = 0588919884) eGFR Calculation mL/min/1.73m2 () (test code = 5387271040) JUDY (test code = JUDY) Association of Glomerular Filtration Rate (GFR) and Staging of Kidney Disease* + --+ --+ ------+| GFR (mL/min/1.73 m2) ?| With Kidney Damage ?| ?Without Kidney Damage+ --------+ --------+ +| ?>90 ?| ?Stage one ?| ? Normal ?+ ---+ ---+ -------+| ?60-89 ?| ?Stage two ?| ? Decreased GFR ? + --+ --+ ------+| ?30-59 ?| ?Stage three ?| ? Stage three ? + --+ --+ ------+| ?15-29 ?| ?Stage four ? | ? Stage four ?+ ---+ ---+ -------+| ?<15 (or dialysis) ? ?| ?Stage five ? | ? Stage five ?+ ---+ ---+ -------+ *Each stage assumes the associated GFR level has been in effect for at least three months. ?Stages 1 to 5, with or without kidney disease, indicate chronic kidney disease. Notes: Determination of stages one and two (with eGFR >59mL/min/1.73 m2) requires estimation of kidney damage for at least three months as defined by structural or functional abnormalities of the kidney, manifested by either:Pathological abnormalities or Markers of kidney damage (including abnormalities in the composition of the blood or urine or abnormalities in imaging tests). Lab Interpretation Abnormal (test code = 79155-3) [facility] CenterACTIVATED PARTIAL THRMPLAS [id number] 10:08:00 Test Item Value Reference Range Interpretation Comments APTT Patient (test See_Comment L [Automat ed code = 3173-2) message] The system which generated this result transmitted reference range : 23 - 38 Seconds . The reference range was not used to interpr et this result as normal/abnormal . JUDY (test code = JUDY) The [facility] patient population mean normal value for aPTT is 30 seconds. Lab Interpretation Abnormal (test code = 45365-2) [facility] CenterPROTHROMBIN TIME / [id number] 10:06:00 Test Item Value Reference Range Interpretation Comments PROTIME PATIENT (test See_Comment [Auto mated message] code = 5964-2) The system wh ich generated this result transmitted ref erence range: 12.0 - 1 4.7 Seconds. The re ference range was not u sed to interpret this result as normal/abnor mal. INR (test code = 6301-6) Nor mal INR <1.1; Warfarin Therap eutic range 2.0 to 3. 0 or 2.5 to 3.5, dep ending upon the indica tions. Lab Interpretation (test Normal code = 52931-3) [facility] CenterCBC with [id number] 09:57:00 Test Item Value Reference Range Interpretation Comments WBC (test code = See_Comment [Automated 6690-2) message] The sy stem which generated this result transmitted reference range : 4.30 - 11.10 10*3/?L. The reference range was not used to interpret this result as normal/abnormal . RBC (test code = See_Comment L [Automated 789-8) message] The sy stem which generated this result transmitted reference range : 3.93 - 5.25 10*6/?L. The reference range was not used to interpret this result as normal/abnormal . HGB (test code = 10.1 g/dL 11.6-15 L 718-7) HCT (test code = 30.5 % 35.7-45.2 L 4544-3) MCV (test code = 88.9 fL 80.6-95.5 787-2) MCH (test code = 29.4 pg 25.9-32.8 785-6) MCHC (test code = 33.1 g/dL 31.6-35.1 786-4) RDW-SD (test code = 50.1 fL 39-49.9 H 09372-0) RDW-CV (test code = 15.5 % 12-15.5 788-0) PLT (test code = See_Comment [Automated 777-3) message] The sy stem which generated this result transmitted reference range : 166 - 358 10*3/ ?L. The reference r obi was not used to interpret this result as normal/abnormal . MPV (test code = 9.3 fL 9.5-12.9 L 94609-7) NRBC/100 WBC (test See_Comment [Automat ed code = 5173469429) message] The system which generated this result transmitted reference range : 0.0 - 10.0 /100 WBCs. The refer ence range was not u sed to interpret th is result as normal/abnormal . NRBC x10^3 (test code <0.01 See_Comment [Auto mated = 4972417139) message] The s ystem which generated this result transmitted reference range : 10*3/?L. The reference range was not used to interpret this result as normal/abnormal . GRAN MAT (NEUT) % 79.7 % (test code = 770-8) IMM GRAN % (test code 1.00 % = 6832814139) LYMPH % (test code = 7.9 % 736-9) MONO % (test code = 11.2 % 5905-5) EOS % (test code = 0.0 % 713-8) BASO % (test code = 0.2 % 706-2) GRAN MAT x10^3(ANC) 8.26 10*3/uL 1.88-7.09 H (test code = 7291690910) IMM GRAN x10^3 (test 0.10 10*3/uL 0-0.06 H code = 6212559155) LYMPH x10^3 (test code 0.82 10*3/uL 1.32-3.29 L = 731-0) MONO x10^3 (test code 1.16 10*3/uL 0.33-0.92 H = 742-7) EOS x10^3 (test code = <0.03 0.03-0.39 L 711-2) BASO x10^3 (test code <0.03 0.01-0.07 = 704-7) Lab Interpretation Abnormal (test code = 87766-9) [facility] CenterGLYCOSYLATED HEMOGLOBIN (A1C)2020-05-06 03:29:00 Test Item Value Reference Range Interpretation Comments HGB A1C (test code = 5.4 % 4-6 4548-4) JUDY (test code = JUDY) %A1C (NGSP) Interpretation (ADA)4.8-5.6 ? ? Normal or (Non-Diabetic Range)5.7-6.4 ? ? Increased Risk (Pre-Diabetic)>6.5 ?Diabetes Indicated Lab Interpretation Normal (test code = 44444-6) [facility] CenterTHYROID STIMULATING [id number] 03:14:00 Test Item Value Reference Range Interpretation Comments TSH (test code = See_Comment Biotin has been 5584931196) reported to cau se a negative bias, interpret resul ts relative to pat lary's use of biotin. [Automated mess age] The system [employer] generated this result transmitted ref erence range: 0.45 - 4 .70 mIU/L. The refe rence range was not u sed to interpret this result as normal/abnor mal. Lab Interpretation (test Normal code = 55817-8) [facility] CenterCOVID-19 (ID NOW RAPID TESTING)2020-05-06 00:14:00 Test Item Value Reference Range Interpretation Comments SARS-CoV-2 Rapid ID NOW Not Detected Not Detected (test code = 62173-9) JUDY (test code = JUDY) ID NOW COVID-19 Assay is an isothermal nucleic acid amplification test intended for the qualitative detection of nucleic acid from SARS-CoV-2 viral RNA in nasopharyngeal (GRIP ASSEMBLER) specimens. It is used under Emergency Use Authorization (EUA) by FDA. The limit of detection (LOD) of the assay is 125 Genome Equivalents/mL. A positive result is indicative of the presence of SARS-CoV-2 RNA. ?Clinical correlation with patient history and other diagnostic information is necessary to determine patient infection status. A negative (Not Detected) result does not preclude SARS-CoV-2 infection. In patients with clinical symptoms and other tests that are consistent with SARS-CoV-2 infection, negative results should be treated as presumptive negative and a new specimen should be tested with alternative PCR molecular test. Invalid: Please collect a new specimen for repeat patient testing if clinically indicated. Lab Interpretation Normal (test code = 26905-8) [facility] CenterABORH [id number] 23:53:34 Test Item Value Reference Range Interpretation Comments ABO & RH (test code O Negative Performe d at [facility] = 20) Laboratory [facility] Bank[address] [place], [place] [address]Toll Free: [phone] A No. [id number] [facility] CenterType and Screen - ONCE [id number] 23:43:53 Test Item Value Reference Range Interpretation Comments ABO & RH (test code O Negative Performe d at [facility] = 20) Laboratory [facility] [place], [place] [address]Toll Free: [phone] A No. [id number] IAT (test code = Negative Performed a t [facility] 1185) Laboratory [facility] [place], [place] [id number] Free: [phone] A No. [id number] [facility] CenterCT HEAD WO [id number] 23:36:13 No acute intracranial abnormality. Specific, no intracranial hemorrhage ormass effect. Preliminary Report Dictated by Resident: Ag Banegas I, Chema Drake MD., have reviewed this study and agree with theabove report.EXAM: CT HEAD WO CONTRAST HISTORY: Head trauma, minor, GCS>=13, high clinical risk, initial exam COMPARISON: ?None. TECHNIQUE: CT head was obtained and reconstructed into axial, coronal andsagittal projection images. FINDINGS: Slight prominence of the caliber the sulciand ventricles, commensuratewith the observed mild degree of cerebral volume loss. No hydrocephalus,midline shift or pathological extra-axial fluid collection is present. Thebasal cisterns are unremarkable. There is no acute intracranial hemorrhage or significant mass effect.Scattered periventricular and deep white matter hypoattenuation,nonspecific, but may reflect sequelae of chronic microvascular w alverto matterischemic disease. 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 The duron-white matter differentiation is preserved. The mastoid air cells and paranasal air sinuses are clear. A right middleconcha bullosa is incidentally noted. The calvarium and central skull base are unremarkable. [facility], Radiant Results Inft User - 05/05/2020 5:37 PM CSTEXAM: CT HEAD WO CONTRASTHISTORY: Head trauma, minor, GCS>=13, high clinical risk, initial exam COMPARISON: None.TECHNIQUE: CT head was obtained and reconstructed into axial, coronal andsagittal projection images.FINDINGS:Slight prominence of the caliber the sulci and ventricles, commensuratewith the observed mild degree of cerebral volume loss. No hydrocephalus,midline shift or pathological extra-axial fluid collection is present. Thebasal cisterns are unremarkable.There is no acute intracranial hemorrhage or significant mass effect.Scattered periventricular and deep white matter hypoattenuation,nonspecific, but may reflect sequelae of chronic microvascular white matterischemic disease. 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 The duron-white matter differentiation is preserved.The mastoid air cells and paranasal air sinuses are clear. A right middleconcha bullosa is incidentally noted.The calvarium and central skull base are unremarkable.IMPRESSIONNo acute intracranial abnormality. Specific, no intracranial hemorrhage ormass effect.Preliminary Report Dictated by Resident: Ag Littlejohn, Chema Drake MD., have reviewed this study and agree with theabove report.[facility] CenterCOM. METABOLIC PANEL ([id number])2020-05-05 23:21:00 Test Item Value Reference Range Interpretation Comments NA (test code = 136 mmol/L 135-145 6430603271) K (test code = 4.1 mmol/L 3.5-5 5692336096) CL (test code = 99 mmol/L 98-108 5249624056) CO2 TOTAL (test code = 26 mmol/L 23-31 9320517205) AGAP (test code = 2-16 3355101319) BUN (test code = 17 mg/dL 7-23 5307920517) GLUCOSE (test code = 171 mg/dL 70-110 H 3909637597) CREATININE (test code = 0.74 mg/dL 0.5-1.04 5680365853) TOTAL BILI (test code = 0.4 mg/dL 0.1-1.6 3521243635) CALCIUM (test code = 9.1 mg/dL 8.6-10.6 2240922263) T PROTEIN (test code = 6.8 g/dL 6.3-8.2 0735211249) ALBUMIN (test code = 4.2 g/dL 3.5-5 1597933242) ALK PHOS (test code = 109 U/L 34-122 8301188532) ALTv (test code = 57 U/L 5-35 H 1742-6) AST(SGOT) (test code = 45 U/L 13-40 H 1126676104) eGFR Calculation mL/min/1.73m2 (Non-) (test code = 0624709737) eGFR Calculation mL/min/1.73m2 () (test code = 4996999541) JUDY (test code = JUDY) Association of Glomerular Filtration Rate (GFR) and Staging of Kidney Disease* + --+ --+ ------+| GFR (mL/min/1.73 m2) ?| With Kidney Damage ?| ?Without Kidney Damage+ --------+ --------+ +| ?>90 ?| ?Stage one ?| ? Normal ?+ ---+ ---+ -------+| ?60-89 ?| ?Stage two ?| ? Decreased GFR ? + --+ --+ ------+| ?30-59 ?| ?Stage three ?| ? Stage three ? + --+ --+ ------+| ?15-29 ?| ?Stage four ? | ? Stage four ?+ ---+ ---+ -------+| ?<15 (or dialysis) ? ?| ?Stage five ? | ? Stage five ?+ ---+ ---+ -------+ *Each stage assumes the associated GFR level has been in effect for at least three months. ?Stages 1 to 5, with or without kidney disease, indicate chronic kidney disease. Notes: Determination of stages one and two (with eGFR >59mL/min/1.73 m2) requires estimation of kidney damage for at least three months as defined by structural or functional abnormalities of the kidney, manifested by either:Pathological abnormalities or Markers of kidney damage (including abnormalities in the composition of the blood or urine or abnormalities in imaging tests). Lab Interpretation Abnormal (test code = 86961-9) [facility] WITH [id number] 23:02:00 Test Item Value Reference Range Interpretation Comments WBC (test code = See_Comment [Automated 7390-2) message] The sy stem which generated this result transmitted reference range : 4.30 - 11.10 10*3/?L. The reference range was not used to interpret this result as normal/abnormal . RBC (test code = See_Comment [Automated 908-8) message] The sy stem which generated this result transmitted reference range : 3.93 - 5.25 10*6/?L. The reference range was not used to interpret this result as normal/abnormal . HGB (test code = 12.1 g/dL 11.6-15 718-7) HCT (test code = 36.1 % 35.7-45.2 4544-3) MCV (test code = 88.5 fL 80.6-95.5 787-2) MCH (test code = 29.7 pg 25.9-32.8 785-6) MCHC (test code = 33.5 g/dL 31.6-35.1 786-4) RDW-SD (test code = 49.4 fL 39-49.9 27247-2) RDW-CV (test code = 15.4 % 12-15.5 788-0) PLT (test code = See_Comment [Automated 777-3) message] The sy stem which generated this result transmitted reference range : 166 - 358 10*3/ ?L. The reference r obi was not used to interpret this result as normal/abnormal . MPV (test code = 9.0 fL 9.5-12.9 L 40196-8) NRBC/100 WBC (test See_Comment [Automat ed code = 3969834464) message] The system which generated this result transmitted reference range : 0.0 - 10.0 /100 WBCs. The refer ence range was not u sed to interpret th is result as normal/abnormal . NRBC x10^3 (test code <0.01 See_Comment [Auto mated = 9569050915) message] The s ystem which generated this result transmitted reference range : 10*3/?L. The reference range was not used to interpret this result as normal/abnormal . GRAN MAT (NEUT) % 91.4 % (test code = 770-8) IMM GRAN % (test code 1.10 % = 5938894697) LYMPH % (test code = 6.2 % 736-9) MONO % (test code = 1.1 % 5905-5) EOS % (test code = 0.0 % 713-8) BASO % (test code = 0.2 % 706-2) GRAN MAT x10^3(ANC) 4.86 10*3/uL 1.88-7.09 (test code = 3699355460) IMM GRAN x10^3 (test 0.06 10*3/uL 0-0.06 code = 3471785273) LYMPH x10^3 (test code 0.33 10*3/uL 1.32-3.29 L = 731-0) MONO x10^3 (test code 0.06 10*3/uL 0.33-0.92 L = 742-7) EOS x10^3 (test code = <0.03 0.03-0.39 L 711-2) BASO x10^3 (test code <0.03 0.01-0.07 = 704-7) Lab Interpretation Abnormal (test code = 78442-5) [facility]"
== END 2021-04-07 09:44 | disposition home or self-care (01) | DRG 392 ==
LOC: ER 12:34 → ERHOLD 14:48 → 2ND 17:21 → OBSVTOIN 04-05 10:41
PROVIDERS: ADMIT Internal Medicine; ATTEND Hospitalist
DX: R11.2 Nausea with vomiting, unspecified (principal); T50.B95A Adverse effect of other viral vaccines, initial encounter; E03.9 Hypothyroidism, unspecified; E78.5 Hyperlipidemia, unspecified; K21.9 Gastro-esophageal reflux disease without esophagitis; M19.90 Unspecified osteoarthritis, unspecified site; I10 Essential (primary) hypertension; Z88.5 Allergy status to narcotic agent; Z79.890 Hormone replacement therapy; Z90.710 Acquired absence of both cervix and uterus; Z79.899 Other long term (current) drug therapy; Z20.822 Contact with and (suspected) exposure to COVID-19
CPT/HCPCS: 36415; 71045; 80048; 80076; 81001; 82947; 83690; 83735; 83880; 84100; 84439; 84443; 84484; 85025; 85610; 87086; 87088; 93005; 96361; 96374; 97116; 97161; 97530; 99285; C9113; G0378; G0379; J0360; J0696; J1650; J2405; J2550; J3480; J7030; J7042; U0003

== ENCOUNTER 2021-10-23 07:56 | Day surgery (SDC) | payer OTHER, MEDICARE ==
[2021-10-23] MEDS ORDERED: Zoledronic Acid/Mannitol/Water 5 MG/100 ML INFUS.BOT IV SCH (09:00)
[2021-10-23 09:32] VITALS: BP 128/58; TEMP 98; O2SAT 100; BMI 23.8
== END 2021-10-23 09:10 | disposition home or self-care (01) ==
LOC: DS 07:56
PROVIDERS: ATTEND Internal Medicine
DX: M81.0 Age-related osteoporosis without current pathological fracture (principal); R13.10 Dysphagia, unspecified; E86.0 Dehydration
CPT/HCPCS: 96365; J3489

== ENCOUNTER 2022-11-08 05:31 | Emergency (ER) | payer OTHER, MEDICARE ==
--- OUTSIDE RECORDS SUMMARY | 2022-11-08 05:58 | XMS REPORT | Continuity of Care Document ---
:1935 Author Organization [facility] t Address [address] [place] [address] Care Team Providers Name Role Phone NADIA MANCUSO Primary Care Physician Unavailable Angel Eason Attending Clinician Unavailable [id number] Attending Clinician Unavailable Ariel Garzon Attending Clinician Unavailable Trung Gore RN Attending Clinician Unavailable MATTHEW SALMERON Attending Clinician Unavailable Jose Cornell DO Attending Clinician Matthew Salmeron MD Attending Clinician Graciela Franco MD Attending Clinician JOSE CORNELL Attending Clinician Unavailable [id number] Admitting Clinician Unavailable MATTHEW SALMERON Admitting Clinician Unavailable Matthew Salmeron MD Admitting Clinician Payers Payer Name Policy Type Policy Number Effective Date Expiration Date S joshua [facility] [id number] [facility] [id number] [place] [address] [id number] [facility] OPTIONS [facility] MEDICARE MB [id number] [facility] NOVITAS - [place] [place] [id number] [facility] OPTIONS [facility] MEDICARE MB [id number] [facility] NOVITAS [facility] Problems Condition Condition Condition Status Onset Resolution Last Treating Co mments Source Name Details Category Date Date Treatment Clinician Date Hypothyroi Hypothyroi Disease Active 2019-05 U nivers dism dism 2 ity of 00:00: [address] Preop Preop Disease Active 2019-05 Univers cardiovasc cardiovasc 208 it y of ular exam ular exam 00:00: [address] Closed Closed Disease Active 2019-05 Univers left hip left hip 07-06 ity of fracture fracture 00:00: [address] [id number] Pain, Problem Active Common joint, [facility] knee, left [facility] [id number] Overactive Problem Active Co mmon bladder [facility] Anemia 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 [facility] chemothera antineopla [facility] 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 [facility] [id number] Arthritis Problem Active Co mmon [id number] of knee, [facility] left [facility] Anemia due Anemia, Problem Active Comm on to blood blood loss Spir it loss [facility] Essential Essential Problem Active Com mon hypertensi (primary) Spi rit on hypertensi - [facility] [id number] Osteoporos Problem Active Com mon is, Spirit unspecifie - [facility], [facility] un[facility]ie Center d pathologic al fracture presence [id number] Hypothyroi Problem Active Co mmon dism [facility] (acquired) [facility] Allergies, Adverse Reactions, Alerts Allergy Allergy Status Severity Reaction(s) Onset Inactive Treating Comm ents Source Name Type Date Date Clinician NO KNOWN Drug Active Univers ALLERGIE Class ity of [facility] [place] Social History Social Habit Start Date Stop Date Quantity Comments Source History of [facility] - Tobacco Use [facility] Sex Assigned At [facility] mayco - [facility] Exposure to Not sure University of SARS-CoV-2 [facility] (event) [facility] Tobacco use and 2020-05-08 2020-05-08 Never used Universit y of exposure 00:00:00 00:00:00 [facility] Alcohol intake 2020-05-08 2020-05-08 Ex-drinker [facility] 00:00:00 00:00:00 (finding) [facility] Smoking Status Start Date Stop Date Source Unknown if ever smoked [facility] mayco - [facility] nter Former Smoker 2021-06-30 00:00:00 2021-06-30 00:00:00 Common S pirit - [facility] nter Medications Ordered Filled Start Stop Current Ordering Indication Dosage Frequency Signature Comments Components Source Medication Medication Date Date Medication? Clinician (SIG) Name Name Solifenacin Solifenacin 2020- No 1{table QD Solifenaci Succinate 5 Succinate 5 -05-18 t} n MG MG 00:00: 00:00 Succinate 00 :00 5 MG Levothyroxi 2019-05 Yes 125ug Take 125 U nivers ne 125 mcg 2-10 mcg by ity of capsule 21:38: mouth [place] 57 daily. [facility] losartan 25 2019-05 Yes 25mg Take 25 mg Univers mg tablet 2-10 by mouth ity of 21:38: daily. [address] Levothyroxi 2019-05 Yes 125ug Take 125 U nivers ne 125 mcg 2-10 mcg by ity of capsule 21:38: mouth [place] 57 daily. [facility] losartan 25 2019-05 Yes 25mg Take 25 mg Univers mg tablet 2-10 by mouth ity of 21:38: daily. [address] gabapentin 2019-05 Yes 300mg 300 mg, Uni vers (NEURONTIN) 2-10 Oral, TID, it y of capsule 300 17:30: First dose [place] mg 00 on [facility] Medical 05/08/20 Branch at 1130, Until Discontinu ed, Routine cyclobenzap 2019-05 Yes 5mg 5 mg, Unive rs rine 2-10 Oral, BID, ity of (FLEXERIL) 17:30: First dose [place] tablet 5 mg 00 on [facility] l 05/08/20 Branch at 1130, Until Discontinu ed, Routine HYDROcodone 2019-05 Yes 1{tbl} 1 tablet, Univers -acetaminop 2-10 Oral, ity of hen (NORCO 15:49: Q4HPRN, [place] 5) 5-325 mg 45 Starting Medi cherelle tablet 1 [facility] Branch tablet 05/08/20 at 0949, Until Discontinu ed, Routine, Pain (scale 7-10) morpHINE 2019-05 2020- No 2mg 2 mg, Slow Un dolores injection 2 2-10 12-10 IV Push, ity of mg 08:15: 15:49 Q4HPRN, [place] 40 :55 Starting Medical [place] Branch 05/08/20 at 0215, Until Mavis 05/08/20 at 0949, Routine, Pain (scale 7-10) enoxaparin 2019-05 2020- No [id number] 40mg inject 0.4 Univers 40 mg/0.4 2-10 12-31 mL under ity o f mL 00:00: 05:59 the skin [place] injection 00 :00 at bedtime [facility] for 20 Branch days. enoxaparin 2019-2019- No [id number] 40mg inject 0.4 Univers 40 mg/0.4 2-10 12-31 mL under ity o f mL 00:00: 05:59 the skin [place] injection 00 :00 at bedtime [facility] for 20 Branch days. cyclobenzap 2019-05- No [id number] 5mg Take 1 Univers rine 5 mg 2-10 12-18 tablet by ity of tablet 00:00: 05:59 mouth 2 [place] 00 :00 (two) Medical times Branch daily for 7 days. gabapentin 2019-2019- No [id number] 300mg Take 1 Univers 300 mg 2-10 12-18 capsule by ity of capsule 00:00: 05:59 mouth 3 [place] 00 :00 (three) Medical times Branch daily for 7 days. docusate 2019- 2020- No [id number] 100mg Take 1 Univers 100 mg 2-10 [...] Indication s: acute pain cyclobenzap 2019-2019- No [id number] 5mg Take 1 Univers rine 5 mg 2-10 12-18 tablet by ity of tablet 00:00: 05:59 mouth 2 [place] 00 :00 (two) Medical times Branch daily for 7 days. gabapentin 2019-05 2020- No [id number] 300mg Take 1 Univers 300 mg 2-10 12-18 capsule by ity of capsule 00:00: 05:59 mouth 3 [place] 00 :00 (three) Medical times Branch daily for 7 days. docusate 2019-05 2020- No [id number] 100mg Take 1 Univers 100 mg 2-10 12-18 capsule by ity of capsule 00:00: 05:59 mouth 2 [place] 00 :00 (two) Medical times Branch daily for 7 days. traMADoL 50 2019-05- No [id number] 50mg Take 1 Uni vers mg tablet 2- 12-18 tablet by ity of 00:00: 05:59 mouth [place] 00 :00 every 6 Medical (six) Branch hours as needed for Pain (scale 4-6) for up to 7 days. Indication s: acute pain sennosides 2019-05 2020- No [id number] 8.6mg Take 1 Univers 8.6 mg 2-10 12-16 tablet by ity of tablet 00:00: 05:59 mouth 2 [place] 00 :00 (two) Medical times Branch daily for 5 days. sennosides 2019-05 2020- No [id number] 8.6mg Take 1 Univers 8.6 mg 2-10 12-16 tablet by ity of tablet 00:00: 05:59 mouth 2 [place] 00 :00 (two) Medical times Branch daily for 5 days. ceFAZolin 2019-05 Yes 1000mg 1,000 mg, U nivers (ANCEF) 2-09 IV ity of 1,000 mg in 19:45: Piggyback, [place] NaCl 0.9% 00 Q8H ABX, Medica l [...] mcg by ity of capsule 15:50: mouth [place] [id number] daily. Medical Branch losartan 25 2019-05 Yes 25mg Take 25 mg Univers mg tablet 07-08 by mouth ity of 15:50: daily. [address] dexamethaso 2019-05 2020- No ONCE INTRA Univers ne 07-08 PROCEDURE, ity of (DECADRON 14:36: 14:52 Starting [place] PHOSPHATE) 00 :46 Tue Medical injection 05/07/20 at [facility] 0836, Until Tue05/07/20 at 0852, Routine, Intra-op morpHINE 2019-05 2020- No ONCE INTRA Un dolores injection 07-08 PROCEDURE, ity of 14:36: 14:52 Starting [place] 00 :46 [facility] Medical 05/07/20 at Branch 0836, Until Tue05/07/20 at 0852, Routine, Intra-op sugammadex 2019-05 2020- No ONCE INTRA Univers (BRIDION) 07-08 PROCEDURE, ity of injection 14:22: 14:52 Starting [place] 00 :46 [facility] Medical 05/07/20 at Branch 0822, Until Tue05/07/20 at 0852, Routine, Intra-op acetaminoph 2019-05 2020- No Administer Univers en ADULT 07-08 over 15 ity of (OFIRMEV) 14:21: 14:52 Minutes, [place] injection 00 :46 ONCE INTRA Medi cherelle PROCEDURE, Branch Starting [facility] 05/07/20 at 0821, Until Tue05/07/20 at 0852, Routine, Intra-op tranexamic 2019-05 2020- No 10mg/kg at 177.5 Univers acid 07-08 /h mL/hr, 10 ity of (CYKLOKAPRO 14:15: 13:45 mg/kg/hr [place] N) 1,000 mg 00 :00 ?71 kg Medica l in NaCl (177.5 Branch 0.9% (NS) mL/hr), IV 250 mL Piggyback, infusion ONCE, 1 dose, [facility] 05/07/20 at 0815, JOSSE, Intra-op ceFAZolin 2019-05 2020- No ONCE INTRA U nivers (ANCEF) 07-08 PROCEDURE, ity o f injection 13:40: 14:52 Starting [place] 00 :46 [facility] Medical 05/07/20 at Branch 0740, Until Tue05/07/20 [...] 14:52 Starting [place] injection 00 :46 [facility] Medical 05/07/20 at Branch 0733, Until Tue05/07/20 at 0852, Routine, Intra-op ondansetron 2019-05 2020- No ONCE INTRA Univers (ZOFRAN 07-08 PROCEDURE, ity o f (PF)) 13:31: 14:52 Starting [place] injection 00 :46 [facility] 05/07/20 at Branch 0731, Until Tue05/07/20 at 0852, Routine, Intra-op propofoL IV 2019-05 2020- No ONCE INTRA Univers infusion 07-08 PROCEDURE, ity of 13:27: 14:52 Starting [place] 00 :46 [facility] 05/07/20 at Branch 0727, Until Tue05/07/20 at 0852, Routine, Intra-op FENTanyl PF 2019-05 2020- No ONCE INTRA Univers (SUBLIMAZE 07-08 PROCEDURE, it y of (PF)) 13:27: 14:52 Starting [place] injection 00 :46 [facility] 05/07/20 at Branch 0727, Until Tue05/07/20 at 0852, Routine, Intra-op lidocaine 2019-05 2020- No ONCE INTRA U nivers 1% 07-08 PROCEDURE, ity of (XYLOCAINE) 13:27: 14:52 Starting [place] 100 mg/10 00 :46 [facility] Medical mL (1 %) 05/07/20 at [facility] h injection 0727, Until Tue05/07/20 at 0852, Routine, Intra-op lactated 2019-05 2020- No CONTINUOUS Un dolores ringers IV 07-08 PRN, ity of infusion 13:20: 14:52 Starting [place] 00 :46 Wed Medical 05/07/20 at Branch 0720, Until [facility] 05/07/20 at 0852, Routine, Intra-op pantoprazol 2019-05 2020- No 40mg 40 mg, IV Univers e 07-08 1209 Piggyback, ity of (PROTONIX) 12:00: 11:15 ONCE, 1 [place] 40 mg in 00 :00 dose, [facility] Medica l NaCl 0.9% 05/07/20 at [facility] (NS) 100 mL 0600, 100 MINI-BAG mL [...] 01:53 Q4HPRN, [place] 07 :07 Starting Medical [facility] 05/06/20 at 1954, Until [facility] 05/07/20 at 1953, Routine, Pain (scale 7-10) pantoprazol 2019-05 Yes 40mg 40 mg, IV U nivers e - Piggyback, ity of (PROTONIX) 17:15: Q24H, [place] 40 mg in 00 First dose Medic al NaCl 0.9% on [facility] Branch (NS) 100 mL 05/06/20 at MINI-BAG 1115, Until Discontinu ed, 100 mL losartan 2019-05 Yes 50mg 50 mg, Univers (COZAAR) 2-08 Oral, ity of tablet 50 15:00: DAILY, [place] mg 00 First dose Medical (after [facility] last modificati on) on [facility] 05/06/20 at 0900, Until Discontinu ed, Routine levothyroxi 2019-05 Yes 125ug 125 mcg, U nivers ne 2-08 Oral, ity of (SYNTHROID) 12:00: QAM-0600, [place] tablet 125 00 First dose Med ical mcg on [facility] 05/06/20 at 0600, Until Discontinu ed sennosides 2019-05 Yes 8.6mg 8.6 mg, Uni vers (SENOKOT) 2-08 Oral, BID, ity of tablet 8.6 02:00: First dose [place] mg 00 on [facility] 05/05/20 at Branch 2000, Until Discontinu ed, Routine hydralAZINE 2019-05 Yes 10mg 10 mg, Univ ers (APRESOLINE 2-08 Slow IV ity o f ) injection 01:29: Push, [place] 10 mg 06 Q6HPRN, [facility] Starting [facility] 05/05/20 at 1929, Until Discontinu ed, JOSSE, DBP=>100; SBP=>160, DBP=>100; SBP=>180<b r>Indicati on: Hypertensi ve Emergency morpHINE 2019-05 2020- No 4mg 4 mg, Slow Un dolores injection 4 07-0707 IV Push, ity of mg 00:15: 23:04 ONCE, 1 [place] 00 :00 dose, [facility] 05/05/20 at Branch 1815, STAT ondansetron 2019-05 2020- No 4mg 4 mg, Slow Univers (ZOFRAN 07-07 IV Push, ity of (PF)) 00:15: 23:04 ONCE, 1 [place] injection 4 00 :00 dose, [facility] Med ical mg 05/05/20 at Branch 1815, JOSSE morpHINE 2019-05 2020- No 2mg 2 mg, Slow Un dolores injection 2 07-0709 IV Push, ity of mg 00:01: 00:00 Q4HPRN, [place] 41 :41 Starting [facility] 05/05/20 at 1801, Until Tue05/06/20 at 1800, Routine, Pain (scale 7-10) HYDROcodone 2019-05 2020- No 1{tbl} 1 tablet, Univers -acetaminop 2 12-10 Oral, ity of hen (NORCO 00:01: 00:00 Q6HPRN, [place] 5) 5-325 mg 37 :37 Starting Medi cherelle tablet 1 [facility] tablet 05/05/20 at 1801, Until Tue05/07/20 at 1800, Routine, Pain (scale 4-6) acetaminoph 2019-05 Yes 650mg 650 mg, Un dolores en 208 Oral, ity of (TYLENOL) 00:01: Q6HPRN, [place] tablet 650 31 Starting Medic al mg Mon Branch 05/05/20 at 1801, Until Discontinu ed, Routine, Pain (scale 1-3) LIDOCAINE LIDOCAINE 2018-05 No 4mL Com mon HCL 10MG/ML HCL 10MG/ML 2-05 S pirit 00:00: - [facility] Kenalog Kenalog 2018-05 No 1mL Common (Triamcinol (Triamcinol 2-05 S pirit one) one) 00:00: - [facility] Cyclobenzap Cyclobenzap Yes [place] not Common rine HCl rine HCl [place] defined Spir it [facility] Pepcid Pepcid Yes [place] not Common [place] defined [facility] Lumigan Lumigan Yes [place] not Common [place] defined [facility] Levothyroxi Levothyroxi Yes [place] not Common ne Sodium ne Sodium [place] defined Sp mayco [facility] Azithromyci Azithromyci Yes [place] not Common n n [place] defined [facility] MethylPREDN MethylPREDN Yes [place] Common ISolone ISolone [place] defined [facility] Omeprazole Omeprazole Yes [place] not Common [place] defined [facility] Losartan Losartan Yes [place] not Comm on Potassium-H Potassium-H [place] defined [facility] CTZ CTZ [facility] Levothyroxi Levothyroxi No QD Levothyrox ne Sodium ne Sodium ine Sodium 125 MCG 125 MCG 125 MCG Losartan Losartan No 1{table BID Losartan Potassium Potassium t} Potassium 25 MG 25 MG 25 MG amLODIPine amLODIPine No 1{table BID amLODIPine Besylate 5 Besylate 5 t} Besylate 5 MG MG MG Levothyroxi Levothyroxi No QD Levothyrox ne Sodium ne Sodium ine Sodium 125 MCG 125 MCG 125 MCG Losartan Losartan No 1{table BID Losartan Potassium Potassium t} Potassium 25 MG 25 MG 25 MG methylPREDN methylPREDN No methylPRED ISolone ISolone NISolone Pepcid Pepcid No Pepcid Omeprazole Omeprazole No Omeprazole Lumigan Lumigan No Lumigan Azithromyci Azithromyci No Azithromyc n n in Levothyroxi Levothyroxi No QD Levothyrox ne Sodium ne Sodium ine Sodium 125 MCG 125 MCG 125 MCG Cyclobenzap Cyclobenzap No Cyclobenza rine HCl rine HCl sienna HCl Losartan Losartan No Losartan Potassium-H Potassium-H Potassium- CTZ CTZ HCTZ methylPREDN methylPREDN No methylPRED ISolone ISolone NISolone Omeprazole Omeprazole No Omeprazole Pepcid Pepcid No Pepcid Lumigan Lumigan No Lumigan Cyclobenzap Cyclobenzap No Cyclobenza rine HCl rine HCl [place] HCl Solifenacin Solifenacin No 1{table QD Solifenaci Succinate 5 Succinate 5 t} n MG MG Succinate 5 MG Levothyroxi Levothyroxi No QD Levothyrox ne Sodium ne Sodium ine Sodium 125 MCG 125 MCG 125 MCG Losartan Losartan No Losartan Potassium-H Potassium-H Potassium- CTZ CTZ HCTZ Azithromyci Azithromyci No Azithromyc n n in amLODIPine amLODIPine No 1{table BID amLODIPine Besylate 5 Besylate 5 t} Besylate 5 MG MG MG Levothyroxi Levothyroxi No QD Levothyrox ne Sodium ne Sodium ine Sodium 125 MCG 125 MCG 125 MCG Losartan Losartan No 1{table BID Losartan Potassium Potassium t} Potassium 25 MG 25 MG 25 MG amLODIPine amLODIPine No 1{table BID amLODIPine Besylate 5 Besylate 5 t} Besylate 5 MG MG MG Immunizations Ordered Immunization Filled Immunization Date Status Commen ts Source Name Name FluAD FluAD 2021-03-05 Completed [facility] 09:05:00 [facility] FluAD FluAD 2021-03-05 Completed [facility] 09:05:00 [facility] FluAD FluAD 2021-03-05 Completed [facility] 09:05:00 [facility] LIDOCAINE HCL LIDOCAINE HCL 2019-05-03 Completed Common S pirit 10MG/ML 10MG/ML 14:52:00 [facility] LIDOCAINE HCL LIDOCAINE HCL 2019-05-03 Completed Common S pirit 10MG/ML 10MG/ML 14:52:00 [facility] Kenalog Joealog 2019-05-03 Completed [facility] (Triamcinolone) (Triamcinolone) 14:51:00 [facility] Kenalog Kenalog 2019-05-03 Completed [facility] (Triamcinolone) (Triamcinolone) 14:51:00 - [facility] Vital Signs Vital Name Observation Time Observation Value Comments Source height 2021-06-30 08:40:00 65.5 [in_i] Common [facility] weight 2021-06-30 08:40:00 150.9 [lb_av] [facility] temperature 2021-06-30 08:40:00 97.2 [degF] Common [facility] bmi 2021-06-30 08:40:00 24.73 kg/m2 [facility] oximetry 2021-06-30 08:40:00 98 % [facility] respiratory rate 2021-06-30 08:40:00 18 /min Comm on [facility] blood pressure 2021-06-30 08:40:00 124 mm[Hg] Common [facility] - systolic [facility] blood pressure 2021-06-30 08:40:00 69 mm[Hg] [facility] - diastolic [facility] height 2021-06-30 09:00:00 65.5 [in_i] Common [facility] weight 2021-06-30 09:00:00 150.9 [lb_av] [facility] temperature 2021-06-30 09:00:00 97.2 [degF] Common [facility] bmi 2021-06-30 09:00:00 24.73 kg/m2 [facility] oximetry 2021-06-30 09:00:00 98 % Common [facility] respiratory rate 2021-06-30 09:00:00 18 /min Comm on [facility] blood pressure 2021-06-30 09:00:00 124 mm[Hg] Common [facility] - systolic [facility] blood pressure 2021-06-30 09:00:00 69 mm[Hg] [facility] - diastolic [facility] height 2021-03-20 11:20:00 65.5 [in_i] Common pirit [facility] weight 2021-03-20 11:20:00 145.8 [lb_av] Common [facility] temperature 2021-03-20 11:20:00 96 [degF] Common [facility] bmi 2021-03-20 11:20:00 23.89 kg/m2 Common S [facility] oximetry 2021-03-20 11:20:00 97 % Common S [facility] blood pressure 2021-03-20 11:20:00 188 mm[Hg] [facility] - systolic [facility] blood pressure 2021-03-20 11:20:00 79 mm[Hg] [facility] - diastolic [facility] height 2021-02-18 08:40:00 65.5 [in_i] Common [facility] weight 2021-02-18 08:40:00 145.8 [lb_av] Common [facility] temperature 2021-02-18 08:40:00 95.8 [degF] Common [facility] bmi 2021-02-18 08:40:00 23.89 kg/m2 Common [facility] oximetry 2021-02-18 08:40:00 97 % Common [facility] blood pressure 2021-02-18 08:40:00 190 mm[Hg] [facility] - systolic [facility] blood pressure 2021-02-18 08:40:00 107 mm[Hg] [facility] - diastolic [facility] Systolic blood 2020-05-08 21:08:00 129 mm[Hg] Univer sity of pressure [facility] Diastolic blood 2020-05-08 21:08:00 62 mm[Hg] Unive rsity of pressure [facility] Heart rate 2020-05-08 21:08:00 95 /min Universi [facility] Body temperature 2020-05-08 21:08:00 37.22 Junie [address] of [facility] Respiratory rate 2020-05-08 21:08:00 18 /min [facility] saturation in 2020-05-08 21:08:00 95 /min University of Arterial blood by [facility] Pulse oximetry Branch Body weight 2020-05-08 09:02:00 72.[address] [facility] BMI 2020-05-08 09:02:00 26.37 kg/m2 Universi ty of [facility] Body height 2020-05-07 19:00:00 166.4 cm per pt Universi ty of [facility] Systolic blood 2020-05-08 21:08:00 129 mm[Hg] Univer sity of [email or web address] Diastolic blood 2020-05-08 21:08:00 62 mm[Hg] Unive rsity of pressure [facility] Heart rate 2020-05-08 21:08:00 95 /min Universi ty [facility] Body temperature 2020-05-08 21:08:00 37.22 Junie [facility] Respiratory rate 2020-05-08 21:08:00 18 /min [facility] Oxygen saturation in 2020-05-08 21:08:00 95 /min University of Arterial blood by [facility] Pulse oximetry Branch Body weight 2020-05-08 09:02:00 72.984 kg Universi ty [facility] BMI 2020-05-08 09:02:00 26.37 kg/m2 Universi ty [facility] Body height 2020-05-07 19:00:00 166.4 cm per pt Universi ty [facility] Respiratory rate 2020-05-07 14:30:00 37 /min [facility] Res[facility] rate 2020-05-07 14:30:00 37 /min [facility] Procedures Procedure Date / Time Performing Clinician Source Performed CBC WITH DIFF 2020-05-08 12:53:00 Matthew Salmeron [place] [facility] COMP. METABOLIC PANEL 2020-05-08 12:53:00 Matthew Salmeron [facility] ([id number]) [facility] FL TIME OR 2020-05-07 14:59:53 Justo Pisano [facility] (NON-REPORTABLE) [facility] Branch INTUBATION 2020-05-07 14:08:58 Jenae Bass [facility] FEMUR INTRAMEDULLARY 2020-05-07 13:04:00 Justo Pisano [facility] HB ABO GROUPING 2020-05-06 16:30:00 Matthew Salmeron [facility] HB ECG ROUTINE & RHYTHM 2020-05-06 11:06:09 Ashley Ryan [facility] STRIP [facility] CBC WITH DIFF 2020-05-06 09:39[facility] 2020-05-06 09:39:00 Matthew Salmeron [facility] ACTIVATED PARTIAL 2020-05-06 09:39:00 Matthew Salmeron [facility] THRMPLAS CONSTANCE [facility] N-TERMINAL PRO-BNP 2020-05-06 09:39:00 Murtaza [facility] MAGNESIUM 2020-05-06 09:39:00 Murtaza [facility] BASIC METABOLIC PANEL 2020-05-06 09:39:00 Matthew Salmeron [facility] (NA, K, CL, CO2, GLUCOSE, Medica l Branch BUN, CREATININE, CA) XR CHEST 1 VW 2020-05-06 06:13:29 Murtaza [facility] ABORH CONFIRMATION 2020-05-05 23:38:00 Matthew Salmeron [facility] COVID-19 (ID NOW RAPID 2020-05-05 23:21:00 [facility] Medical Branch LAB ONLY COVID 2020-05-05 23:21:00 Singer Jose [facility] INTERPRETATION [facility] CT HEAD WO CONTRAST 2020-05-05 23:11:21 [facility] HIPS 3 VW LEFT 2020-05-05 23:00:41 Singer Jose [facility] HB ABO GROUPING 2020-05-05 22:57:00 Singer [facility] GLYCOSYLATED HEMOGLOBIN 2020-05-05 22:50:00 Ashley Ryan [facility] (A1C) [facility] THYROID STIMULATING 2020-05-05 22:50:00 Ashley Ryan [facility] HORMONE [facility] COMP. METABOLIC PANEL 2020-05-05 22:50:00 Jose Cornell [facility] ([id number]) Medical Branch CBC WITH DIFF 2020-05-05 22:50:00 Jose Cornell o f [facility] Branch NOTICE OF PRIVACY 2020-05-05 22:28:37 Doctor Unassigned, [facility] PRACTICES [facility] CONSENT/REFUSAL FOR 2020-05-05 22:28:21 Doctor Unassigned, [facility] DIAGNOSIS AND TREATMENT [facility] [facility] Encounters Start End Encounter Admission Attending Care Care Encounter Source Date/Time Date/Time Type Type Clinicians Facility Department ID 2021-12-21 Outpatient Eason, STLMLC STLMLC [id number] Common 08:51:01 Angel [facility] 2021-10-16 Outpatient Eason, STLMLC STLMLC [id number] Common 09:52:04 Angel [facility] 2021-06-25 Outpatient 3 [id number] ENCPL REF [id number] [facility] 11:08:59 [facility] [place] 2021-06-25 Outpatient 3 [id number] ENCPL REF [id number] [facility] 11:08:40 [facility] [place] 2021-06-24 Outpatient Eason, STLMLC STLMLC [id number] Common 14:27:14 Angel 44153 [facility] 2021-06-24 Outpatient Eason, STLMLC STLMLC [id number] Common 14:26:45 Angel 98508 [facility] 2021-06-24 Outpatient Duran, STLMLC STLMLC [id number] Common 13:51:56 Ariel 84359 [facility] 2021-06-24 Outpatient Duran, STLMLC STLMLC [id number] Common 12:25:54 Ariel 86246 [facility] 2021-06-24 Outpatient Duran, STLMLC STLMLC [id number] Common 11:01:46 Ariel 79974 [facility] 2021-07-24 2021-07-24 (TEL) STLC STLC [id number] Co mmon 00:00:00 00:00:00 Spirit - [facility] 2021-06-30 2021-06-30 OFFICE STLMLC STLMLC [id number] Co mmon 00:00:00 00:00:00 VISIT EST Spir it PT LEVEL 3 - [facility] 2021-06-30 2021-06-30 SUB ANNUAL STLMLC STLMLC [id number] Common 00:00:00 00:00:00 MCR Spirit WELLNESS - [facility] 2021-03-20 2021-03-20 OFFICE STLMLC STLMLC [id number] Co mmon 00:00:00 00:00:00 VISIT EST Spir it PT LEVEL 3 - [facility] 2021-02-18 2021-02-18 OFFICE STLMLC STLMLC [id number] Co mmon 00:00:00 00:00:00 VISIT NEW Spir it PT LEVEL 3 - [facility] 2020-05-09 2020-05-09 Transition Joycelyn Gore 1.2.840.114 [id number] Univers 00:00:00 00:00:00 of Care Trung A Andrea 350.1.13.10 ity of [place] 4.2.7.2.686 [facility] [id number] [facility] 403 Branch 2020-05-09 2020-05-09 Transition Joycelyn Gore 1.2.840.114 [id number] 00:00:00 00:00:00 of Care Trung A Mendez 350.1.13.10 [place] 4.2.7.2.686 [id number] [facility] 2020-05-05 2020-05-08 Inpatient X FAVIOLA [facility] [id number] Univers 16:29:00 15:25:[address] [facility] 2020-05-05 2020-05-08 [facility] 1.2.840.1 14 [id number] Univers 16:29:00 15:25:00 Encounter Matthew Salmeron 350.1.13.10 [place] [id number] [place] [id number] Branch 2020-05-05 2020-05-08 [facility] Jose Cornell [facility] 1.2.840.1 14 [id number] 16:29:00 15:25:00 Encounter Matthew Salmeron 350.1.13.10 [place] 4.2.7.2.686 [place] [id number] 081 2020-05-07 2020-05-07 Anesthesia [facility] 1.2.840.114 [id number] Univers 07:20:00 08:49:00 Graciela Metzger 350.1.13.10 [place] [id number] Med ical Center 020 Branch 2020-05-07 2020-05-07 Anesthesia [facility] 1.2.840.114 [id number] 07:20:00 08:49:00 Graciela Metzger 350.1.13.10 [place] 4.2.7.2.686 Surgical [id number] Center 020 2020-05-05 2020-05-05 Emergency X SINGER [facility] ERT [id number] Univers 16:29:00 16:29:00 [facility] 2019-06-14 2019-06-14 [facility] [id number] Common 09:00:00 09:00:00 t [facility] - [facility] Results Test Description Test Test Results Result Source Time Comments Comments LAB ONLY COVID COVID DMT [place] [address] InterpretationInterp [facility] 15:53:00 retation/Recommendat Bran ch ions: Molecular NAAT [...] upon aggregate COVID-19 test results pooled from [facility]. They apply to the following tests offered at [facility] and assume the acceptable specimen type(s) were used: A. Tests for the Identification of SARS-CoV-2 RNA (Molecular NAAT Tests): ?- SARS-CoV-2 PCR assays including [place] Aptima, [place] Fusion, Burrows RealTime, and LibreDigital Xpert Xpress. ?- SARS-CoV-2 Rapid ID NOW by the ID NOW assay. ? B. Tests for the Identification of SARS-CoV-2 Antibodies: ?- Chemiluminescent immunoassays including Access SARS-CoV-2 IgM (DXI 600), Diet TVS Krbu-FQYI-QoY-2 IgG (Vitros 5600 and Vitros 3600), and Burrows SARS-CoV-2 IgG (DYNAMITE PACKING MACHINE FEEDER I System). These interpretations are autopopulated into [facility] based on computerized algorithms matching an interpretation code to the patient's set of test results, and a clinical pathologist evaluates the comments for accuracy. However, these comments do not consider testing a patient may have had outside of the [facility] system. If results for COVID-19 infection [...] lavage fluid (BAL), tracheal aspirate, etc.). ? [facility] LABORATORY SERVICESCOVID JcnnnerHOIU-LnV-6 Rapid ID NOW (no units) ? ? Date ? Value ? 05/05/2020 ? Not Detected ? [facility] COMP. METABOLIC PANEL (04925) 2020-05-08 15:02:00 Test Item Value Reference Range Interpretation Comme nts NA (test code = 4465724142) 132 mmol/L 135-145 L K (test code = 9001651846) 4.1 mmol/L 3.5-5 CL (test code = 7185595998) 104 mmol/L 98-108 CO2 TOTAL (test code = 8635497530) 24 mmol/L 23-31 AGAP (test code = 5663205427) 2-16 BUN (test code = 3411595844) 14 mg/dL 7-23 GLUCOSE (test code = 7843211989) 98 mg/dL 70-110 CREATININE (test code = 0.64 mg/dL 0.5-1.04 8889933534) TOTAL BILI (test code = 0.6 mg/dL 0.1-1.9 3724454999) CALCIUM (test code = 5690656753) 7.4 mg/dL 8.6-10.6 L T PROTEIN (test code = 2839954859) 5.1 g/dL 6.3-8.2 L ALBUMIN (test code = 1281062811) 2.8 g/dL 3.5-5 L ALK PHOS (test code = 5611628957) 88 U/L 34-122 ALTv (test code = 1742-6) 50 U/L 5-35 H AST(SGOT) (test code = 8201958828) 34 U/L 13-40 eGFR Calculation (Non- mL/min/1.73m2 Japanese) (test code = 0546197480) eGFR Calculation ( mL/min/1.73m2 Japanese) (test code = 8595586379) JUDY (test code = JUDY) Association of [...] tests). Lab Interpretation (test code = Abnormal 08743-9) [facility] WITH [id number] 14:00:00 Test Item Value Reference Range Interpretation Comments WBC (test code = See_Comment [Automated 5390-2) message] The sy stem which generated this result transmitted reference range : 4.30 - 11.10 10*3/?L. The reference range was not used to interpret this result as normal/abnormal . RBC (test code = See_Comment L [Automated 883-8) message] The sy stem which generated this [...] RDW-SD (test code = 49.0 fL 39-49.9 59982-8) RDW-CV (test code = 15.4 % 12-15.5 788-0) PLT (test code = See_Comment [Automated 777-3) message] The sy stem which generated this result transmitted reference range : 166 - 358 10*3/ ?L. The reference r obi was not used to interpret this result as normal/abnormal . MPV (test code = 9.4 fL 9.5-12.9 L 05573-3) NRBC/100 WBC (test See_Comment [Automat ed code = 9394087320) message] The system which generated this result transmitted reference range : 0.0 - 10.0 /100 WBCs. The refer ence range was not u sed to interpret th is result as normal/abnormal . NRBC x10^3 (test code <0.01 See_Comment [Auto mated = 4745145178) message] The s ystem which generated this result transmitted reference range : 10*3/?L. The reference range was not used to interpret this result as normal/abnormal . GRAN MAT (NEUT) % 83.1 % (test code = 770-8) IMM GRAN % (test code 0.70 % = 0704672519) LYMPH % (test code = 8.5 % 736-9) MONO % (test code = 7.3 % 5905-5) EOS % (test code = 0.3 % 713-8) BASO % (test code = 0.1 % 706-2) GRAN MAT x10^3(ANC) 5.53 10*3/uL 1.88-7.09 (test code = 0010529131) IMM GRAN x10^3 (test 0.05 10*3/uL 0-0.06 code = 3081552323) LYMPH x10^3 (test code 0.57 10*3/uL 1.32-3.29 L = 731-0) MONO x10^3 (test code 0.49 10*3/uL 0.33-0.92 = 742-7) EOS x10^3 (test code = <0.03 0.03-0.39 L 711-2) BASO x10^3 (test code <0.03 0.01-0.07 = 704-7) Lab Interpretation Abnormal (test code = 80350-8) [facility] (NON-REPORTABLE)2020-05-07 15:01:05 These images do not require a Radiology diagnostic report.[facility]Intubation2020-12-09 14:08:58HoJenae Mario CRNA ? ? 05/07/2020 ?8:09 AMIntubationDate/Time: 05/07/2020 7:34 AMUrgency: elective Airway not difficult General Information and Staff Patient location during procedure: ORResident/DWARF TREE GROWER: Jenae Bass CRNAPerformed: resident/DWARF TREE GROWER Indications and Patient ConditionIndications for airway management: anesthesiaSpontaneous Ventilation: absentSedation level: deepPreoxygenated: yesPatient position: sniffingMILS maintained throughoutMask difficulty assessment: 1 - vent by mask Final Airway DetailsFinal airway type: endotracheal airway Successful airway: ETTCuffed: yes Successful intubation technique: direct laryngoscopyFacilitating devices/methods: cricoid pressureEndotrachealtube insertion site: oralBlade: CharloBlade size: #2ETT size (mm): 7.0Cormack-Lehane Classification:grade I - full view of glottisPlacement verified by: chest auscultation and capnometry Cuff volume (mL): 10Measured from: lipsETT to lips (cm): 19Number of attempts at approach: 1Ventilation between attempts: noneNumber of other approaches attempted: 0 Additional CommentsRSI with head elevated, + vocal cords visualized, atraumatic intubation, teeth and lips per preop assessmentUnSt. David's [facility] HospitalType and Screen - ONCE [id number] 17:17:31 Test Item Value Reference Range Interpretation Comments ABO & RH (test code O Negative Performe d at [facility] = 20) Laboratory [facility] [address] [place], [place] [address]Gkbx Free: [phone] A No. [id number] IAT (test code = Negative Performed a t [facility] 1185) Laboratory [facility] Blood Bank[address] [place] [address]Zkez Free: [phone] A No. [id number] [facility]XR CHEST 1 [id number] 14:10:53HISTORY: Fall, dyspnea. TECHNIQUE: Portable AP supine view of the chest is obtained. No prior cheststudy available for comparison. FINDINGS: Minimal upper lobe predominant obstructive lung diseasesuspected. No acute pneumonia. No pneumothorax or pleural effusion orpulmonary congestion detected. Cardiac size is within normal limits. CONCLUSIONS: No signs of acute cardiopulmonary disease.[facility], Radiant R esults Inft User - 05/06/2020 8:11 AM CSTHISTORY: Fall, dyspnea.TECHNIQUE: Portable AP supine view of the chest is obtained. No prior cheststudy available for comparison.FINDINGS: Minimal upper lobe predominant obstructive lung diseasesuspected. No acute pneumonia. No pneumothorax or pleural effusion o rpulmonary congestion detected. Cardiac size is within normal limits. CONCLUSIONS: No signs of acutecardiopulmonary disease.[facility]XR HIPS 3 VW [id number] 13:42:55 Intertrochanteric femur fracture. Preliminary Report Dictated [...] joint spaces andalignment are normal. Mild soft tissuefullness around the joint capsule isnoted. [facility], Radiant Results Inft User - 05/06/2020 7:44 AM CSTEXAM: XR HIPS 3 VW LEFTHISTORY: fall, left hip fx COMPARISON: None.FINDINGS: Radiographs of the left hip demonstrate a comminuted intertrochantericfemur fracture with mild impaction and varus angulation.The fracturelines involve the greater and lesser trochanters. The hip joint spaces andalignment are normal. Mild soft tissue fullness around the joint capsule isnoted.IMPRESSIONIntertrochanteric femur fracture.Preliminary Report Dictated by Resident: Leni Underwood MD., have reviewed this study and agree with the abovereport.[facility]iscoN- TERMINAL [id number] 10:28:00 Test Item Value Reference Range Interpretation Comments NT-proBNP (test code 236 pg/mL See_Comment [Autom ated = 2149810511) message] The system which generated this result transmitted reference range : <=450. The reference range was not used to interpret this result as normal/abnormal . JUDY (test code = JUDY) Biotin has been reported to cause a negative bias, interpret results relative to patient's use of biotin. Lab Interpretation Normal (test code = 01731-7) [facility]iscoMAGNESIUM2020-12-08 10:21:00 Test Item Value Reference Range Interpretation Comments MAGNESIUM (test code = 1276227886) 2.1 mg/dL 1.7-2.4 Lab Interpretation (test code = Normal 27026-0) [facility]iscoBasi Metabolic Panel (NA, K, CL, CO2, GLUCOSE, BUN, CREATININE, CA)2020-05-06 10:20:00 Test Item Value Reference Range Interpretation Comments NA (test code = 135 mmol/L 135-145 4842992726) K (test code = 4.1 mmol/L 3.5-5 8284954112) CL (test code = 103 mmol/L 98-108 2596517922) CO2 TOTAL (test code = 26 mmol/L 23-31 4783641420) AGAP (test code = 2-16 7971933778) BUN (test code = 17 mg/dL 7-23 2026918148) GLUCOSE (test code = 147 mg/dL 70-110 H 3330170160) CREATININE (test code = 0.73 mg/dL 0.5-1.04 6710557026) CALCIUM (test code = 8.3 mg/dL 8.6-10.6 L 9460592071) eGFR Calculation mL/min/1.73m2 (Non-) (test code = 7659428627) eGFR Calculation mL/min/1.73m2 () (test code = 3448718130) JUDY (test code = JUDY) Association of [...] tests). Lab Interpretation Abnormal (test code = 89739-2) [facility]iscoACTIVATED PARTIAL THRMPLAS [id number] 10:08:00 Test Item Value Reference Range Interpretation Comments APTT Patient (test See_Comment L [Automat ed code = 3173-2) message] The system which generated this result transmitted reference range : 23 - 38 Seconds . The reference range was not used to interpr et this result as normal/abnormal . JUDY (test code = JUDY) The [facility] patient population mean normal value for aPTT is 30 seconds. Lab Interpretation Abnormal (test code = 24146-3) [facility]iscoPROTHROMBIN TIME / [id number] 10:06:00 Test Item Value Reference Range Interpretation [...] tions. Lab Interpretation (test Normal code = 76234-7) [facility] with [id number] 09:57:00 Test Item Value Reference Range Interpretation [...] (test code = 50.1 fL 39-49.9 H 95013-7) RDW-CV (test code = 15.5 % 12-15.5 788-0) PLT (test code = See_Comment [Automated 777-3) message] The sy stem which generated this result transmitted reference range : 166 - 358 10*3/ ?L. The reference r obi was not used to interpret this result as normal/abnormal . MPV (test code = 9.3 fL 9.5-12.9 L 09450-0) NRBC/100 WBC (test See_Comment [Automat ed code = 6162870837) message] The system which generated this result transmitted reference range : 0.0 - 10.0 /100 WBCs. The refer ence range was not u sed to interpret th is result as normal/abnormal . NRBC x10^3 (test code <0.01 See_Comment [Auto mated = 6271938978) message] The s ystem which generated this result transmitted reference range : 10*3/?L. The reference range was not used to interpret this result as normal/abnormal . GRAN MAT (NEUT) % 79.7 % (test code = 770-8) IMM GRAN % (test code 1.00 % = 8372891599) LYMPH % (test code = 7.9 % 736-9) MONO % (test code = 11.2 % 5905-5) EOS % (test code = 0.0 % 713-8) BASO % (test code = 0.2 % 706-2) GRAN MAT x10^3(ANC) 8.26 10*3/uL 1.88-7.09 H (test code = 3220541058) IMM GRAN x10^3 (test 0.10 10*3/uL 0-0.06 H code = 6977561476) LYMPH x10^3 (test code 0.82 10*3/uL 1.32-3.29 L = 731-0) MONO x10^3 (test code 1.16 10*3/uL 0.33-0.92 H = 742-7) EOS x10^3 (test code = <0.03 0.03-0.39 L 711-2) BASO x10^3 (test code <0.03 0.01-0.07 = 704-7) Lab Interpretation Abnormal (test code = 96470-2) [facility]iscoGLYCOSYLATED HEMOGLOBIN (A1C)2020-05-06 03:29:00 Test Item Value Reference Range Interpretation Comments HGB A1C (test code = 5.4 % 4-6 4548-4) JUDY (test code = JUDY) %A1C (NGSP) Interpretation (ADA)4.8-5.6 ? ? Normal or (Non-Diabetic Range)5.7-6.4 ? ? Increased Risk (Pre-Diabetic)>6.5 ?Diabetes Indicated Lab Interpretation Normal (test code = 81347-2) [facility]iscoTHYROID STIMULATING [id number] 03:14:00 Test Item Value Reference Range Interpretation Comments TSH (test code = See_Comment Biotin has been 9666584230) reported to cau se a negative bias, interpret resul ts relative to pat lary's use of biotin. [Automated mess age] The system Aceso[employer]ee generated this result transmitted ref erence range: 0.45 - 4 .70 mIU/L. The refe rence range was not u sed to interpret this result as normal/abnor mal. Lab Interpretation (test Normal code = 66450-2) [facility]iscoCOVID-19 (ID NOW RAPID TESTING)2020-05-06 00:14:00 Test Item Value Reference Range Interpretation Comments SARS-CoV-2 Rapid ID NOW Not Detected Not Detected (test code = 59441-5) JUDY (test code = JUDY) ID NOW COVID-19 Assay is an isothermal nucleic acid amplification test intended for the qualitative detection of nucleic acid from SARS-CoV-2 viral RNA in nasopharyngeal (HIGHWAY ENGINEER) specimens. It is used under Emergency Use [...] indicated. Lab Interpretation Normal (test code = 46974-5) [facility] FriscoABORH [id number] 23:53:34 Test Item Value Reference Range Interpretation Comments ABO & RH (test code O Negative Performe d at [facility] = 20) Laboratory [facility] Blood Bank[address] [place] [address]Xkqw Free: [phone] A No. [id number] [facility]iscoType and Screen - ONCE [id number] 23:43:53 Test Item Value Reference Range Interpretation Comments ABO & RH (test code O Negative Performe d at [facility] = 20) Laboratory [facility] [address] [place], [place] [address]Iyjr Free: [phone] A No. [id number] IAT (test code = Negative Performed a t [facility] 1185) Laboratory [facility] [place], [place] [address]Toll Free: [phone] A No. [id number] [facility]iscoCT HEAD WO [id number] 23:36:13 No acute intracranial abnormality. Specific, no intracranial hemorrhage ormass effect. Preliminary Report Dictated by Resident: Ag Banegas I, Chema Drake MD., have reviewed this study and agree with theabove report.EXAM: CT HEAD WO CONTRAST HISTORY: Head trauma, minor, GCS>=13, high clinical risk, initial exam COMPARISON: ?None. TECHNIQUE: CT head was obtained and reconstructed intoaxial, coronal andsagittal projection images. FINDINGS: Slight prominence of the caliber the sulci and [...] is noted in the left coronaradiata. The duron-whitematter differentiation is preserved. The mastoid air cells and paranasal air sinuses are clear. A right middleconcha bullosa is incidentally noted. The calvarium and central skull base are unremarkable. [facility], Radiant Results Inft User - 05/05/2020 5:37 PM CSTEXAM: CT HEAD WO CONTRASTHISTORY: Head trauma, minor, GCS>=13, high clinical risk, initial exam COMPARISON: None.TECHNIQUE: CT head was obtained and reconstructed into axial, coronal andsagittal projection images.FINDINGS:Slight prominence ofthe caliber the sulci and ventricles, commensuratewith the observed mild degree of cerebral volume loss. No hydrocephalus,midline shift or pathological extra-axial fluid collection is present. Thebasalcisterns are unremarkable.There is no acute intracranial hemorrhage or significant mass effect.Scattered periventricular and deep white matter hypoattenuation,nonspecific, but may reflect sequelae of ch ronic microvascular white matterischemic disease. 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 The duron-white matter differentiation is preserved.The mastoid air cells and paranasal air sinuses are clear. A right middleconcha bullosa is incidentally noted.The calvarium and central skull base are unremarkable.IMPRESSIONNo acute intracranial abnormality. Specific, no intracranial hemorrhage ormass effect.Preliminary Report Dictated by Resident: Ag Littlejohn, Chema Drake MD.,have reviewed this study and agree with theabove report.[facility]. METABOLIC PANEL (23009)2020-05-05 23:21:00 Test Item Value Reference Range Interpretation Comments NA (test code = 136 mmol/L 135-145 5761058113) K (test code = 4.1 mmol/L 3.5-5 1763410948) CL (test code = 99 mmol/L 98-108 4129087215) CO2 TOTAL (test code = 26 mmol/L 23-31 7065314004) AGAP (test code = 2-16 6074181117) BUN (test code = 17 mg/dL 7-23 0698626867) GLUCOSE (test code = 171 mg/dL 70-110 H 3573906301) CREATININE (test code = 0.74 mg/dL 0.5-1.04 8311965279) TOTAL BILI (test code = 0.4 mg/dL 0.1-1.3 7997950468) CALCIUM (test code = 9.1 mg/dL 8.6-10.6 6709967727) T PROTEIN (test code = 6.8 g/dL 6.3-8.2 1863953831) ALBUMIN (test code = 4.2 g/dL 3.5-5 0624938044) ALK PHOS (test code = 109 U/L 34-122 6338819078) ALTv (test code = 57 U/L 5-35 H 1742-6) AST(SGOT) (test code = 45 U/L 13-40 H 1896344347) eGFR Calculation mL/min/1.73m2 (Non-) (test code = 9808038289) eGFR Calculation mL/min/1.73m2 () (test code = 9536150381) JUDY (test code = JUDY) Association of [...] tests). Lab Interpretation Abnormal (test code = 12641-9) [facility] WITH [id number] 23:02:00 Test Item Value Reference Range Interpretation Comments WBC (test code = See_Comment [Automated 0590-2) message] The sy stem which generated this result transmitted reference range : 4.30 - 11.10 10*3/?L. The reference range was not used to interpret this result as normal/abnormal . RBC (test code = See_Comment [Automated 589-8) message] The sy stem which generated this [...] RDW-SD (test code = 49.4 fL 39-49.9 84495-9) RDW-CV (test code = 15.4 % 12-15.5 788-0) PLT (test code = See_Comment [Automated 777-3) message] The sy stem which generated this result transmitted reference range : 166 - 358 10*3/ ?L. The reference r obi was not used to interpret this result as normal/abnormal . MPV (test code = 9.0 fL 9.5-12.9 L 14948-4) NRBC/100 WBC (test See_Comment [Automat ed code = 5334364158) message] The system which generated this result transmitted reference range : 0.0 - 10.0 /100 WBCs. The refer ence range was not u sed to interpret th is result as normal/abnormal . NRBC x10^3 (test code <0.01 See_Comment [Auto mated = 9663260904) message] The s ystem which generated this result transmitted reference range : 10*3/?L. The reference range was not used to interpret this result as normal/abnormal . GRAN MAT (NEUT) % 91.4 % (test code = 770-8) IMM GRAN % (test code 1.10 % = 0132245380) LYMPH % (test code = 6.2 % 736-9) MONO % (test code = 1.1 % 5905-5) EOS % (test code = 0.0 % 713-8) BASO % (test code = 0.2 % 706-2) GRAN MAT x10^3(ANC) 4.86 10*3/uL 1.88-7.09 (test code = 1697088365) IMM GRAN x10^3 (test 0.06 10*3/uL 0-0.06 code = 6448866019) LYMPH x10^3 (test code 0.33 10*3/uL 1.32-3.29 L = 731-0) MONO x10^3 (test code 0.06 10*3/uL 0.33-0.92 L = 742-7) EOS x10^3 (test code = <0.03 0.03-0.39 L 711-2) BASO x10^3 (test code <0.03 0.01-0.07 = 704-7) Lab Interpretation Abnormal (test code = 35829-1) [facility]"
[2022-11-08] MEDS ORDERED: METOCLOPRAMIDE 10 MG/2mL INJ ONE (06:16)
[2022-11-08 06:17] LABS: Absolute Lymphocytes (CBC) 2.4 K/uL (0.7-4.9); Hematocrit 38.7 % (36.0-45.0); Lymphocytes % 31.1 % (15.3-44.8); MCV 88.8 fL (80-100); MPV 7.4 fL (7.6-11.3); RBC Red Blood Cell Count 4.36 M/uL (3.86-4.86)
[2022-11-08] MEDS ORDERED: DIPHENHYDRAMINE 50 MG/ML VIAL ONE (06:17)
[2022-11-08] MEDS ORDERED: NA CHLORIDE 0.9% 500 ML ONE (06:17)
[2022-11-08] MEDS ORDERED: KETOROLAC 30 MG/ML INJ ONE (06:17)
[2022-11-08 06:36] LABS: Albumin 3.7 g/dL (3.4-5.0); Bilirubin Total 0.3 mg/dL (0.2-1.0); Potassium 4.2 mEq/L (3.5-5.1); Protein, Total 7.1 g/dL (6.4-8.2); Troponin High Sensitivity 4.7 pg/mL (<58.9)
--- NOTE | 2022-11-08 07:13 | ER ---
Nurse's Notes [facility] Name: Tiara Gooden Age: 87 yrs Sex: Female : 1935 Arrival Date: 11/08/2022 Time: 05:31 Bed 20 Private MD: Diagnosis: Headache Presentation: 11/08 05:46 Chief complaint: Patient states: high blood pressure all weekend. woke up today around lg3 0400 with a headache and nausea. Coronavirus screen: Client denies travel out of the [place] in the last 14 days. At this time, the client does not indicate any symptoms associated with coronavirus-19. Ebola Screen: No symptoms or risks identified at this time. Initial Sepsis Screen: Does the patient meet any 2 criteria? No. Patient's initial sepsis screen is negative. Does the patient have a suspected source of infection? No. Patient's initial sepsis screen is negative. Risk Assessment: Do you want to hurt yourself or someone else? Patient reports no desire to harm self or others. Onset of symptoms was November 08, 2022. 05:46 Method Of Arrival: Ambulatory formerly [facility] 05:46 Acuity: ANNA 3 lg3 Triage Assessment: 05:48 General: Appears in no apparent distress. comfortable, Behavior is calm, cooperative. lg3 Pain: Complains of pain in head. EENT: No deficits noted. No signs and/or symptoms were reported regarding the EENT system. EENT:. Neuro: No deficits noted. Rodriguez Agitation-Sedation Scale (RASS): 0 - Alert and Calm. Neuro: Level of Consciousness is awake, alert, obeys commands, Oriented to person, place, time, situation, Brimming Machine Operator are equal bilaterally Gait is steady, Speech is normal. Cardiovascular: No deficits noted. Denies chest pain, shortness of breath, Capillary refill < 3 seconds Clubbing of nail beds is absent JVD is absent Patient's skin is warm and dry. Respiratory: No deficits noted. Airway is patent Respiratory effort is even, unlabored, Respiratory pattern is regular, symmetrical. GI: No deficits noted. Abdomen is round non-distended, Bowel sounds present X 4 quads. Abd is soft and non tender X 4 quads. Reports nausea. : No deficits noted. No signs and/or symptoms were reported regarding the genitourinary system. Derm: No deficits noted. No signs and/or symptoms reported regarding the dermatologic system. Skin is intact, is healthy with good turgor, Skin is dry, Skin is normal, Skin temperature is warm. Musculoskeletal: No deficits noted. No signs and/or symptoms reported regarding the musculoskeletal system. Circulation, motion, and sensation intact. Range of motion: intact in all extremities. Historical: - Allergies: 05:48 Codeine; lg3 - Home Meds: 05:48 levothyroxine oral [Active]; losartan Oral [Active]; lg3 - PMHx: 05:48 Hypertension; Hypothyroidism; macular degeneration; rectal mass; lg3 - PSHx: 05:48 left hip; left femur; lg3 - Immunization history:: Adult Immunizations up to date, Client reports receiving the 2nd dose of the Covid vaccine, Pneumococcal vaccine is up to date, Flu vaccine is up to date. - Social history:: Smoking status: Patient denies any tobacco usage or history of. Patient/guardian denies using alcohol. Screenin:51 [facility] ED Fall Risk Assessment (Adult) History of falling in the last 3 months, lg3 including since admission No falls in past 3 months (0 pts). Abuse screen: Denies threats or abuse. Denies injuries from another. Nutritional screening: No deficits noted. Tuberculosis screening: No symptoms or risk factors identified. Assessment: 05:51 General: see triage assessment . lg3 06:57 Reassessment: Patient appears in no apparent distress at this time. Patient and/or lg3 family updated on plan of care and expected duration. Pain level reassessed. Patient is alert, oriented x 3, equal unlabored respirations, skin warm/dry/pink. Patient states feeling better. Patient states symptoms have improved. Vital Signs: 05:46 BP 176 / 87; Pulse 82; Resp 17 S; Temp 97.8(O); Pulse Ox 100% on R/A; Weight 68.04 kg lg3 (R); Height 5 ft. 4 in. (R); 05:46 Body Mass Index 25.75 (68.04 kg, 162.56 cm) lg3 ED Course: 05:33 Patient arrived in ED. ja2 05:40 David Ornelas MD is Attending Physician. bs3 05:46 Mansi Mcnair RN is Primary Nurse. lg3 05:48 Triage completed. lg3 05:48 Arm band placed on right wrist. lg3 05:51 Patient has correct armband on for positive identification. Placed in gown. Bed in low lg3 position. Call light in reach. Side rails up X 1. Client placed on continuous cardiac and pulse oximetry monitoring. NIBP monitoring applied. clinical research monitor on. Door closed. Noise minimized. Warm blanket given. Family accompanied patient. 06:15 Inserted saline lock: 22 gauge in left antecubital area, using aseptic technique. Blood lg3 collected. 06:15 CBC with Diff Sent. lg3 06:15 Comprehensive Metabolic Panel Sent. lg3 06:15 Troponin High Sensitivity Sent. lg3 06:37 CT Head Brain wo Cont In Process Unspecified. EDMS 07:50 No provider procedures requiring assistance completed. IV discontinued, intact, ap3 bleeding controlled, No redness/swelling at site. Pressure dressing applied. Administered Medications: 06:15 Drug: NS 0.9% IV 500 ml Route: IV; Rate: bolus; Site: left antecubital; lg3 07:51 Follow up: IV Status: Infusion continued ap3 06:15 Drug: metoCLOPramide IVP 10 mg Route: IVP; Site: left antecubital; lg3 07:51 Follow up: Response: No adverse reaction ap3 06:15 Drug: diphenhydrAMINE IVP 12.5 mg Route: IVP; Site: left antecubital; lg3 07:51 Follow up: Response: No adverse reaction ap3 06:15 Drug: Ketorolac IVP 15 mg Route: IVP; Site: left antecubital; lg3 07:51 Follow up: Response: No adverse reaction; Pain is decreased ap3 Medication: 07:50 VIS not applicable for this client. ap3 Outcome: 07:12 Discharge ordered by . bs3 07:50 Discharged to home ambulatory. ap3 07:50 Condition: good 07:50 Discharge instructions given to patient, family, Instructed on discharge instructions, follow up and referral plans. Demonstrated understanding of instructions, follow-up care. 07:51 Patient left the ED. ap3 Signatures: Dispatcher [employer] EDMS Enriqueta Juarez RN RN ap3 Mansi Mcnair RN RN lg3 Maranda Hicks Brandon, MD MD bs3
--- NOTE | 2022-11-08 07:13 | EDPHYS ---
Physician Documentation [facility] Name: Tiara Gooden Age: 87 yrs Sex: Female : 1935 Arrival Date: 11/08/2022 Time: 05:31 Bed 20 Private MD: ED Physician David Ornelas HPI: 11/08 05:56 This 87 yrs old Female presents to ER via Ambulatory with complaints of High bs3 Blood Pressure, Nausea, Headache. 05:56 She has a history of hypertension hypothyroidism macular degeneration she is a patient bs3 of Dr. Garzon she is coming in with high blood pressure this weekend and then this morning she developed a headache it is a frontal headache mild in nature with associated nausea no vomiting it started at approximately 2 AM she denies lightheadedness dizziness she denies numbness tingling or weakness in her extremities no chest pain or shortness of breath or anything else bothering her she got very concerned because of her blood pressure and therefore came in. Historical: - Allergies: 05:48 Codeine; lg3 - Home Meds: 05:48 levothyroxine oral [Active]; losartan Oral [Active]; lg3 - PMHx: 05:48 Hypertension; Hypothyroidism; macular degeneration; rectal mass; lg3 - PSHx: 05:48 left hip; left femur; lg3 - Immunization history:: Adult Immunizations up to date, Client reports receiving the 2nd dose of the Covid vaccine, Pneumococcal vaccine is up to date, Flu vaccine is up to date. - Social history:: Smoking status: Patient denies any tobacco usage or history of. Patient/guardian denies using alcohol. ROS: 05:56 Constitutional: Negative for fever, chills bs3 05:56 All other systems are negative. Exam: 05:56 Constitutional: This is a well developed, well nourished patient who is awake, alert, bs3 and in no acute distress. Head/Face: Normocephalic, atraumatic. Eyes: Pupils equal round and reactive to light, extra-ocular motions intact. Lids and lashes normal. ENT: mmm, no posterior phyarngeal erythema Neck: Trachea midline, no thyromegaly, no neck stiffness Chest/axilla: Normal chest wall appearance and motion. Nontender with no deformity. No lesions are appreciated. Cardiovascular: Regular rate and rhythm with a normal S1 and S2. symmetric pulses in upper extremities Respiratory: Lungs have equal breath sounds bilaterally, clear to auscultation, no respiratory distress Abdomen/GI: Soft, non-tender, no rebound or guarding MS/ Extremity: Pulses equal, no cyanosis. Neurovascular intact. Full, normal range of motion. Neuro: Awake and alert, GCS 15, oriented to person, place, time, and situation. Cranial nerves II-XII grossly intact. Motor strength 5/5 in all extremities. Sensory grossly intact. Psych: Awake, alert, with orientation to person, place and time. Behavior, mood, and affect are within normal limits. Vital Signs: 05:46 BP 176 / 87; Pulse 82; Resp 17 S; Temp 97.8(O); Pulse Ox 100% on R/A; Weight 68.04 kg lg3 (R); Height 5 ft. 4 in. (R); 05:46 Body Mass Index 25.75 (68.04 kg, 162.56 cm) lg3 MDM: 05:40 Patient medically screened. bs3 05:56 Data reviewed: vital signs, nurses notes. ED course: Patient with headache and nausea bs3 will rule out atypical presentation of acute coronary syndrome given the nausea will rule out intercranial hemorrhage her headache started approximately 2 AM therefore an initial head CT should rule this out we will treat headache and check electrolytes and reassess. 06:06 ED course: EKG is normal sinus rhythm at 71 left anterior fascicular block QTc 425 as bs3 interpreted by myself. 07:11 ED course: CT negative for acute pathology labs normal patient reassessed and feeling bs3 much better discussed with primary care doctor who agrees patient is stable for outpatient management advised strict return precautions. 06 05:51 Order name: CBC with Diff; Complete Time: 06:30 bs3 11/08 05:51 Order name: Comprehensive Metabolic Panel; Complete Time: 06:37 bs3 11/08 05:51 Order name: Troponin High Sensitivity; Complete Time: 06:37 bs3 11/08 05:51 Order name: CT Head Brain wo Cont bs3 11/08 05:51 Order name: EKG - Nurse/Tech; Complete Time: 06:06 bs3 Administered Medications: 06:15 Drug: NS 0.9% IV 500 ml Route: IV; Rate: bolus; Site: left antecubital; lg3 07:51 Follow up: IV Status: Infusion continued ap3 06:15 Drug: metoCLOPramide IVP 10 mg Route: IVP; Site: left antecubital; lg3 07:51 Follow up: Response: No adverse reaction ap3 06:15 Drug: diphenhydrAMINE IVP 12.5 mg Route: IVP; Site: left antecubital; lg3 07:51 Follow up: Response: No adverse reaction ap3 06:15 Drug: Ketorolac IVP 15 mg Route: IVP; Site: left antecubital; lg3 07:51 Follow up: Response: No adverse reaction; Pain is decreased ap3 Disposition Summary: 11/08/22 07:12 Discharge Ordered Location: Home bs3 Problem: new bs3 Symptoms: have improved bs3 Condition: Stable bs3 Diagnosis - Headache bs3 Followup: bs3 - With: Private Physician - When: 1 - 2 days - Reason: Re-evaluation by your physician Discharge Instructions: - Discharge Summary Sheet bs3 - General Headache Without Cause bs3 - Hypertension, Adult, [id number] bs3 Forms: - Medication Reconciliation Form bs3 - Thank You Letter bs3 - Antibiotic Education bs3 - Prescription Opioid Use bs3 Signatures: Dispatcher [employer] Mansi Putnam RN RN lg3 David Ornelas MD MD bs3 Enriqueta Juarez RN ap3
[2022-11-08 08:15] VITALS: BP 176/87; TEMP 97.8; O2SAT 100
--- NOTE | 2022-11-08 12:01 | EKG ---
Test Date: 2022-11-08 Test Time: 06:03:46 Formation Fracturing Operator: MAYDA MEASUREMENT RESULTS: Intervals: Rate: 71 AK: 152 QRSD: 98 QT: 392 QTc: 425 [place]: P: 60 AK: 152 QRS: -49 T: 43 INTERPRETIVE STATEMENTS: Normal sinus rhythm Left anterior fascicular block Abnormal ECG Compared to ECG 04/04/2021 13:10:47 Left anterior fascicular block now present Left-axis deviation no longer present Electronically Signed On 11-08-22 12:00:15 CDT by Fly Ruiz
--- NOTE | 2022-11-08 12:23 | RAD REPORT ---
EXAM DESCRIPTION: Head Brain Wo Cont CLINICAL HISTORY: HEADACHE TECHNIQUE: 5 mm axial images were obtained through the brain without IV contrast. This exam was perf ormed according to our departmental dose-optimization program which includes use of Automated Exposur e Control, adjustment of the mA and/or kV according to patient size and/or use of iterative reconstru ction technique. COMPARISON: Head CT, 02/14/2020. FINDINGS: There is diffuse enlargement of the ventricles and sulci compatible with cerebral atrophy, age-appropriate. There is no intra-axial or extra-axial bleed. No evidence of hydrocephalus. Low den sity periventricular white matter changes noted compatible with chronic small vessel ischemic disease . Atherosclerotic carotid arterial calcifications are identified. The visualized paranasal sinuses and mastoid air cells are patent. No fracture is identified. IMPRESSION: Stable appearance of the brain with no acute intracranial abnormality. Senescent changes as described above. Electronically signed by: Aleksandr Krishnan MD 11/08/2022 6:47 AM CDT Due to temporary technical issues with the PACS/Fluency reporting system, reports are being signed by the in house radiologist without review as a courtesy to ensure prompt reporting. The interpreting r adiologist is fully responsible for the content of the report.
== END 2022-11-08 07:51 | disposition home or self-care (01) ==
LOC: ER 05:31
DX: R51.9 Headache, unspecified (principal); I10 Essential (primary) hypertension; E03.9 Hypothyroidism, unspecified; Z88.5 Allergy status to narcotic agent
CPT/HCPCS: 96361; 93005; 85025; 36415; 84484; 80053; 70450; 96375; 96374; 99285; J2765; J1200; J7040

== ENCOUNTER 2022-11-17 08:06 | Day surgery (SDC) | payer OTHER, MEDICARE ==
[2022-11-17] MEDS ORDERED: Zoledronic Acid/Mannitol/Water 5 MG/100 ML INFUS.BOT IV ONE (08:30)
[2022-11-17 08:48] VITALS: BP 148/65; TEMP 97.9; O2SAT 98; BMI 25.0
== END 2022-11-17 09:03 | disposition home or self-care (01) ==
LOC: DS 08:06
PROVIDERS: ATTEND Internal Medicine
DX: M81.0 Age-related osteoporosis without current pathological fracture (principal); R13.10 Dysphagia, unspecified; E86.0 Dehydration
CPT/HCPCS: 96365; J3489